=== PATIENT | female | born 1930 | race Caucasian/White ===

== ENCOUNTER → 2016-09-04 | Outpatient (CLI) | payer MEDICARE, BC ==
[~2016-09-04] MED LIST: ACYC400T; ALPR0.5T99 PO; AMIT50TA13 PO; ASPI325T PO; CALC0.25 PO; ERGO50000 PO; FOLI1TAB PO; FURO10S TUBE; KLOR10TA8 PO; LEVO.125 PO; METH2.5 PO; PRIL10CA PO; PRIM50TA PO; PROP10TA26 PO; SIMV5TAB32 PO; TYLETAB36 PO
[2016-09-04 15:58] LABS: AUTOMATED NEUTROPHIL # 1.1 TH/MM3 (1.8-7.7); BASOPHIL % 1.1 % (0.0-2.0); EOSINOPHIL % 0.6 % (0.0-4.0); HEMATOCRIT 37.7 % (35.0-46.0); LYMPH % 30.5 % (9.0-44.0); LYMPHOCYTE # 0.6 TH/MM3 (1.0-4.8); MEAN CELL VOLUME 102.4 FL (80.0-100.0); MEAN CORPUSCULAR HEMOGLOBIN 32.5 PG (27.0-34.0); MEAN CORPUSCULAR HGB CONC 31.8 % (32.0-36.0); MONO % 8.4 % (0.0-8.0); NEUT % 59.4 % (16.0-70.0); PLATELET COUNT 147 TH/MM3 (150-450); RED BLOOD COUNT 3.69 MIL/MM3 (4.00-5.30); RED CELL DISTRIBUTION WIDTH 15.9 % (11.6-17.2); WHITE BLOOD COUNT 1.9 TH/MM3 (4.0-11.0)
[2016-09-04 16:01] LABS: HEMO FLAGS AUTO DIFF
[2016-09-04 16:19] LABS: ALKALINE PHOSPHATASE 257 U/L (45-117); ALT (GPT) 1782 U/L (10-53); ANION GAP 7 MEQ/L (5-15); AST (GOT) 3553 U/L (15-37); BICARBONATE 32.8 MEQ/L (21.0-32.0); BLOOD UREA NITROGEN 20 MG/DL (7-18); CHLORIDE 101 MEQ/L (98-107); GLOMERULAR FILTRATION RATE 40 ML/MIN (>89); POTASSIUM 4.4 MEQ/L (3.5-5.1); SODIUM (NA) 141 MEQ/L (136-145); TOTAL BILIRUBIN ADULT 0.8 MG/DL (0.2-1.0)
[2016-09-04 16:40] LABS: BANDS 5 % (0-6); BASOPHILS 2 % (0-2); METAMYELOCYTES 1 % (0-1); NEUTROPHIL # MANUAL DIFF 1.2 TH/MM3 (1.8-7.7); POLYS (SEG NEUTROPHILS) 55 % (16-70); SCAN/DIFF FINAL DIFF MANUAL; WBC DIFF SAMPLE 100
[2016-09-04 16:42] LABS: PLATELET ESTIMATE SMEAR LOW (NORMAL); PLATELET MORPHOLOGY NORMAL (NORMAL)
[2016-09-04 16:49] LABS: BACTERIA, URINE MOD /hpf; BLOOD, URINE TRACE (NEG); GLUCOSE,URINE NEG (NEG); HYALINE CAST, URINE 5 /lpf (RARE); KETONE, URINE NEG (NEG); MUCUS URINE FEW /lpf (OCC); PH, URINE 6.5 (5.0-8.5); URINE COLOR YELLOW (YELLW/STRAW)
[2016-09-04 16:50] LABS: NITRITE,URINE POS (NEG)
== END ==
LOC: PLAB 13:37
PROVIDERS: ATTEND Internal Medicine Nephrology
DX: I12.9 Hypertensive chronic kidney disease with stage 1 through stage 4 chronic kidney disease, or unspecified chronic kidney disease (principal); N18.3 Chronic kidney disease, stage 3 (moderate); N25.81 Secondary hyperparathyroidism of renal origin; M06.09 Rheumatoid arthritis without rheumatoid factor, multiple sites; M81.0 Age-related osteoporosis without current pathological fracture; Z79.899 Other long term (current) drug therapy
CPT/HCPCS: 36415; 80053; 81001; 82306; 82570; 83970; 84100; 84156; 85007; 85027

== ENCOUNTER → 2016-09-17 | Outpatient (CLI) | payer MEDICARE, BC ==
[2016-09-17 16:19] LABS: ALT (GPT) 51 U/L (10-53); ANION GAP 8 MEQ/L (5-15); AST (GOT) 28 U/L (15-37); BICARBONATE 26.8 MEQ/L (21.0-32.0); BLOOD UREA NITROGEN 21 MG/DL (7-18); CHLORIDE 104 MEQ/L (98-107); GLOMERULAR FILTRATION RATE 56 ML/MIN (>89); POTASSIUM 4.2 MEQ/L (3.5-5.1); SODIUM (NA) 139 MEQ/L (136-145)
[2016-09-17 16:21] LABS: ALKALINE PHOSPHATASE 137 U/L (45-117); TOTAL BILIRUBIN ADULT 0.3 MG/DL (0.2-1.0)
[2016-09-17 16:22] LABS: HEMATOCRIT 37.3 % (35.0-46.0); MEAN CELL VOLUME 101.6 FL (80.0-100.0); MEAN CORPUSCULAR HEMOGLOBIN 32.4 PG (27.0-34.0); MEAN CORPUSCULAR HGB CONC 31.9 % (32.0-36.0); PLATELET COUNT 203 TH/MM3 (150-450); RED BLOOD COUNT 3.67 MIL/MM3 (4.00-5.30); RED CELL DISTRIBUTION WIDTH 16.1 % (11.6-17.2); REVIEW FLAG FINAL; WHITE BLOOD COUNT 6.3 TH/MM3 (4.0-11.0)
[2016-09-17 16:30] LABS: TOTAL PROTEIN SPE 7.5 GM/DL (6.0-7.6)
[2016-09-17 17:56] LABS: BACTERIA, URINE MOD /hpf; BLOOD, URINE SMALL (NEG); GLUCOSE,URINE NEG (NEG); KETONE, URINE NEG (NEG); MUCUS URINE FEW /lpf (OCC); NITRITE,URINE POS (NEG); SQUAMOUS EPITHELIAL CELL URINE <1 /hpf (0-5); URINE COLOR LIGHT-YELLOW (YELLW/STRAW)
[2016-09-18 11:30] LABS: ALBUMIN SPE 4.25 GM/DL (3.50-5.00); ALPHA 1 GLOBULIN 0.21 GM/DL (0.11-0.29); ALPHA 2 GLOBULIN 0.86 GM/DL (0.22-1.00); BETA GLOBULINS (SPE) 0.77 GM/DL (0.53-1.03)
[2016-09-19 15:18] LABS: ANA SCREEN POS (NEG)
[2016-09-20 14:13] LABS: KAPPA LAMBDA RATIO 1.91 (1.57-3.93)
[2016-09-20 23:53] LABS: KAPPA/LAMBDA FREE 1.45 (0.26-1.65)
[2016-09-21 14:40] LABS: ANA TITER QUANT 1:40 (NEG)
== END ==
LOC: PLAB 12:20
PROVIDERS: ATTEND Internal Medicine Nephrology
DX: N18.3 Chronic kidney disease, stage 3 (moderate) (principal); M06.09 Rheumatoid arthritis without rheumatoid factor, multiple sites; M81.0 Age-related osteoporosis without current pathological fracture; Z79.899 Other long term (current) drug therapy
CPT/HCPCS: 36415; 80053; 81001; 82570; 82784; 83883; 84100; 84155; 84156; 84165; 85027; 86038; 86039; 86160; 86334; 86335

== ENCOUNTER → 2016-11-07 | Outpatient (CLI) | payer MEDICARE, BC ==
[2016-11-07 16:12] LABS: BLOOD, URINE NEG (NEG); COMMENT (UR) CULT NOT INDICATED; CULTURE IF INDICATED CULT NOT INDICATED; GLUCOSE,URINE NEG (NEG); HYALINE CAST, URINE 4 /lpf (RARE); KETONE, URINE NEG (NEG); MUCUS URINE FEW /lpf (OCC); NITRITE,URINE NEG (NEG); PH, URINE 5.5 (5.0-8.5); URINE COLOR LIGHT-YELLOW (YELLW/STRAW)
== END ==
LOC: PLAB 12:49
PROVIDERS: ATTEND Physician Assistant
DX: N39.0 Urinary tract infection, site not specified (principal); N18.3 Chronic kidney disease, stage 3 (moderate)
CPT/HCPCS: 81001

== ENCOUNTER → 2016-12-25 | Outpatient (CLI) | payer MEDICARE, BC ==
[2016-12-25 15:39] LABS: HEMATOCRIT 38.6 % (35.0-46.0); MEAN CELL VOLUME 97.9 FL (80.0-100.0); MEAN CORPUSCULAR HGB CONC 32.7 % (32.0-36.0); PLATELET COUNT 183 TH/MM3 (150-450); RED BLOOD COUNT 3.94 MIL/MM3 (4.00-5.30); RED CELL DISTRIBUTION WIDTH 15.1 % (11.6-17.2); REVIEW FLAG FINAL; WHITE BLOOD COUNT 7.5 TH/MM3 (4.0-11.0)
[2016-12-25 16:02] LABS: ALT (GPT) 37 U/L (10-53); ANION GAP 6 MEQ/L (5-15); AST (GOT) 41 U/L (15-37); BICARBONATE 31.9 MEQ/L (21.0-32.0); BLOOD UREA NITROGEN 24 MG/DL (7-18); CHLORIDE 102 MEQ/L (98-107); GLOMERULAR FILTRATION RATE 52 ML/MIN (>89); POTASSIUM 4.3 MEQ/L (3.5-5.1); SODIUM (NA) 140 MEQ/L (136-145)
[2016-12-25 16:04] LABS: ALKALINE PHOSPHATASE 104 U/L (45-117); TOTAL BILIRUBIN ADULT 0.2 MG/DL (0.2-1.0)
== END ==
LOC: PLAB 13:14
PROVIDERS: ATTEND Internal Medicine Rheumatology
DX: M06.09 Rheumatoid arthritis without rheumatoid factor, multiple sites (principal); Z79.899 Other long term (current) drug therapy
CPT/HCPCS: 36415; 80053; 85027

== ENCOUNTER 2017-04-03 00:03 | Emergency (ER) | payer MEDICARE, BC ==
[~2017-04-03] VITALS: Ht 165.1 cm; Wt 65.3 kg
[2017-04-03 00:08] VITALS: BP 192/90; PULSE 85; RESP 20; TEMP 97.8; O2SAT 98
[2017-04-03 00:34] VITALS: BP 115/53; PULSE 71; RESP 20; TEMP 97.8; O2SAT 95
[2017-04-03] MEDS ORDERED: ACETAMINOPHEN/CODEINE 300 MG/30 MG TAB PO ONE (01:15)
[2017-04-03 01:21] VITALS: BP 192/90; PULSE 85; RESP 20; TEMP 97.8; O2SAT 98
--- NOTE | 2017-04-03 01:41 | PD ---
HPI Chief Complaint: Fall Time Seen by Provider: 00:51 Travel History International Travel<30 days: No Contact w/Intl Traveler<30days: No Traveled to known affect area: No History of Present Illness HPI Patient is an 86-year-old female she lives alone. She said today she was getting up from her recliner and she fell backwards hitting her head against linoleum at the crown of her head she has a lump without laceration. She says she has a fractured calcaneus that will not heal on her right. She denies syncope she remembers the whole event she is convinced that she just fell because of the pain in her foot. She is under wound care because she has a squamous cell cancer on that that is a healing ulcer that is [place] needing treatment. In the ER she is awake alert. Her eyes are obviously 2 different sizes and that is because she had her eyes dilated for by the material stockkeeper yard today. It is not caused by injury to her brain from the fall. CAT scan is ordered. PFSH Past Medical History Arthritis: Yes (RHEUMATOID ARTHRITIS) Asthma: No Blood Disorders: No Anxiety: Yes Depression: Yes Heart Rhythm Problems: No Cancer: No Cardiovascular Problems: Yes ([place] 10/2005) High Cholesterol: Yes (PATIENT DENIES BUT TAKES MED FOR CHOLESTEROL) Chest Pain: No Congestive Heart Failure: No COPD: No Cerebrovascular Accident: No Diminished Hearing: No Endocrine: Yes (HYPOTHROID) Gastrointestinal Disorders: Yes GERD: Yes Genitourinary: Yes (BLADDER INFECTION) Headaches: No Hiatal Hernia: Yes Hypertension: Yes Immune Disorder: Yes (RA) Implanted Vascular Access Dvce: Yes Kidney Stones: No Musculoskeletal: Yes (MULTPLE ORTHOPEDIC SURGERIES) Psychiatric: Yes Immunizations Current: Yes (received the shingles vaccine) Migraines: Yes ( CHILD) Myocardial Infarction: Yes (2005) Renal Failure: No Seizures: No Sickle Cell Disease: No Sleep Apnea: No Thyroid Disease: Yes (HYPOTHYROID) Ulcer: Yes Tetanus Vaccination: > 5 Years Influenza Vaccination: No ?: Not Menopausal: Yes Past Surgical History Abdominal Surgery: Yes AICD: No Arteriovenous Shunt: No Cardiac Surgery: No Cholecystectomy: Yes Ear Surgery: No Endocrine Surgery: No Eye Surgery: Yes (BILATERAL CATARACT REMOVAL L EYE 2008 R EYE 1997) Genitourinary Surgery: Yes (GALLBLADDER REMOVED--OPEN 1975) Gynecologic Surgery: No Insulin Pump: No Joint Replacement: Yes (BILATERAL KNEE REPLACEMENTS. RIGH HIP REPLACEMENT) Neurologic Surgery: Yes (BACK SURGERY 1973) Oral Surgery: No Pacemaker: No Thoracic Surgery: No Other Surgery: Yes Social History Alcohol Use: No Tobacco Use: No Substance Use: No Allergies-Medications (Allergen,Severity, Reaction): Coded Allergies: diclofenac (Verified Allergy, Severe, HIVES, 04/03/17) penicillin G (Verified Allergy, Severe, Swelling, 04/03/17) piroxicam (Verified Allergy, Severe, Hives, 04/03/17) Uncoded Allergies: CLINORIL (Allergy, Severe, RASH, 05/18/08) NSAIDS (Allergy, Mild, 01/19/12) Reported Meds & Prescriptions Reported Meds & Active Scripts Active Tylenol-Codeine #4 (Acetaminophen-Codeine) 300-60 mg Tab 1 Tab PO Q4H PRN Levaquin (Levofloxacin) 750 Mg Tablet 750 Mg PO DAILY 5 Days Review of Systems Except as stated in HPI: all other systems reviewed are Neg HENT: Positive: Headaches Cardiovascular: No: Chest Pain or Discomfort, Palpitations Respiratory: No: Cough, Shortness of Breath Musculoskeletal: Positive: Myalgias (patient has constant left heel pain she says she has fractures there that she is been trying to heal) Physical Exam Narrative GENERAL: Patient has swelling to the crown of her head otherwise appears very healthy and normal alert oriented 3 SKIN: Warm and dry. HEAD: Patient has a small swelling to the crown parietal area on the left side of her scalp ....traumatic. No laceration EYES: Her left pupil is smaller 2 mm compared to her right pupil which is 5 mm she reports having had drops put in her eye by ophthalmology today. No scleral icterus. No injection or drainage. ENT: No nasal bleeding or discharge. Mucous membranes pink and moist. NECK: Trachea midline. No JVD. CARDIOVASCULAR: Regular rate and rhythm. RESPIRATORY: No accessory muscle use. Clear to auscultation. Breath sounds equal bilaterally. GASTROINTESTINAL: Abdomen soft, non-tender, nondistended. Hepatic and splenic margins not palpable. MUSCULOSKELETAL: Extremities left lower extremity is wrapped in this ulcer supporting stocking mild tenderness to the left heel No obvious deformities. NEUROLOGICAL: Awake and alert. No obvious cranial nerve deficits. Motor grossly within normal limits. Five out of 5 muscle strength in the arms and legs. Normal speech. PSYCHIATRIC: Appropriate mood and affect; insight and judgment normal. Data Data Last Documented VS Vital Signs Date Time Temp Pulse Resp B/P (MAP) Pulse Ox O2 Delivery O2 Flow Rate FiO2 04/03/17 03:11 04/03/17 02:48 18 04/03/17 02:40 97 93 102 04/03/17 01:24 Room Air 04/03/17 01:21 97[address] Brain W/O Iv Contrast(Rout) (04/03/17 ) Ct Foot W/O Contrast (04/03/17 ) Urinalysis - C+S If Indicated (04/03/17 01:13) Acetamin-Codeine 300-30 Mg (Tylenol-Code (04/03/17 01:15) Urine Culture (04/03/17 01:54) Levofloxacin (Levaquin) (04/03/17 02:15) Orthostatic Vital Signs (04/03/17 02:32) Ed Discharge Order (04/03/17 03:03) Labs Laboratory Tests Test 04/03/17 01:54 Urine Color YELLOW Urine Turbidity MOD Urine pH 6.0 Urine Specific Center Line 1.017 Urine Protein NEG mg/dL Urine Glucose (UA) NEG mg/dL Urine Ketones NEG mg/dL Urine Occult Blood SMALL Urine Nitrite POS Urine Bilirubin NEG Urine Leukocyte Esterase MOD Urine RBC 4-9 /hpf Urine WBC 50-99 /hpf Urine WBC Clumps OCC Urine Squamous Epithelial Cells 0-5 /hpf Urine Bacteria MANY /hpf Microscopic Urinalysis Comment CULTURE INDICATED MDM Medical Decision Making Medical Screen Exam Complete: Yes Emergency Medical Condition: Yes Differential Diagnosis Closed head injury versus intracerebral bleed versus concussion versus syncope versus mechanical fall Narrative Course CT head is negative for internal injury of the heel shows well-corticated fragment off of the heel is interpreted as negative she has a urinary tract infection and treat her with Levaquin by mouth 750 for 5 days she has orthostatics better normal she does not drop her pressure or feel dizzy it is safe to discharge her home to follow up with her primary care doctor and take Levaquin 750 daily for 5 days Diagnosis Primary Impression: Closed head injury Additional Impression: Urinary tract infection Patient Instructions: General Instructions, Head Injury (ED), Urinary Tract Infection in Women (ED) Scripts Acetaminophen-Codeine (Tylenol-Codeine #4) 300-60 mg Tab 1 TAB PO Q4H Y for PAIN, #15 TAB 0 Refills Prov: Tej Rocha MD 04/03/17 Levofloxacin (Levaquin) 750 Mg Tablet 750 MG PO DAILY for Infection for 5 Days, #5 TAB 0 Refills Prov: Tej Rocha MD 04/03/17 Disposition: 01 DISCHARGE HOME Condition: Good Tej Rocha MD Apr 03, 2017 01:41
[2017-04-03 02:00] LABS: BLOOD, URINE SMALL (NEG); GLUCOSE,URINE NEG (NEG); KETONE, URINE NEG (NEG); NITRITE,URINE POS (NEG)
--- NOTE | 2017-04-03 02:04 | RADRPT ---
EXAM DATE/TIME: 04/03/2017 01:31 [facility] COMPARISON: CT BRAIN W/O CONTRAST, June 23, 2013, 14:17. INDICATIONS : Trauma. Fall. RADIATION DOSE: 57.60 CTDIvol (mGy) MEDICAL HISTORY : Cardiovascular disease. SURGICAL HISTORY : None. ENCOUNTER: Initial ACUITY: 1 day PAIN SCALE: 8/10 LOCATION: Bilateral occipital TECHNIQUE: Multiple contiguous axial images were obtained of the head. Using automated exposure control and adj ustment of the mA and/or kV according to patient size, radiation dose was kept as low as reasonably a chievable to obtain optimal diagnostic quality images. DICOM format image data is available electro nically for review and comparison. FINDINGS: CEREBRUM: The ventricles are normal for age. No evidence of midline shift, mass lesion, hemorrhage or acute in farction. No extra-axial fluid collections are seen. POSTERIOR FOSSA: The cerebellum and brainstem are intact. The 4th ventricle is midline. The cerebellopontine angle i s unremarkable. EXTRACRANIAL: The visualized portion of the orbits is intact. SKULL: The calvaria is intact. No evidence of skull fracture. CONCLUSION: Normal examination. Scooter Stapleton MD on April 03, 2017 at 2:02 Board Certified Radiologist. This report was verified electronically.
[2017-04-03 02:08] LABS: URINE COLOR YELLOW (YELLW/STRAW)
--- NOTE | 2017-04-03 02:08 | RADRPT ---
EXAM DATE/TIME: 04/03/2017 01:36 [facility] COMPARISON: No previous studies available for comparison. INDICATIONS : Left foot pain. RADIATION DOSE: 5.98 CTDIvol (mGy) MEDICAL HISTORY : Cardiovascular disease. SURGICAL HISTORY : None. ENCOUNTER: Initial ACUITY: 1 day PAIN SCALE: 8/10 LOCATION: Left foot TECHNIQUE: Volumetric scanning of the foot was performed. Using automated exposure control and adjustment of th e mA and/or kV according to patient size, radiation dose was kept as low as reasonably achievable to obtain optimal diagnostic quality images. DICOM format image data is available electronically for re view and comparison. FINDINGS: BONES: No evidence of fracture. Alignment is within normal limits. JOINTS: No evidence of joint narrowing or effusion. SOFT TISSUES: Significant soft tissue swelling across the dorsum of the foot . The tendons and neurovascular stru ctures are grossly unremarkable. There is marked fatty atrophy of the plantar musculature. No eviden ce of mass, organized fluid collection, or foreign body. CONCLUSION: Diffuse soft tissue edema across the dorsum of the foot. Diffuse fatty atrophy throughout the plantar musculature. No acute fracture is seen. Scooter Stapleton MD on April 03, 2017 at 2:04 Board Certified Radiologist. This report was verified electronically.
[2017-04-03 02:09] LABS: BACTERIA, URINE MANY /hpf; COMMENT (UR) CULTURE INDICATED; CULTURE IF INDICATED CULTURE INDICATED; SQUAMOUS EPITHELIAL CELL URINE 0-5 /hpf (0-5)
[2017-04-03] MEDS ORDERED: LEVOFLOXACIN 750 MG TAB PO ONE (02:15)
[2017-04-03 02:40] VITALS: BP_SYST 176; BP_SYST 178; BP_SYST 189; BP_DIAS 68; BP_DIAS 80; BP_DIAS 85; RESP 18
[2017-04-03 02:48] VITALS: RESP 18
[2017-04-03] MEDS ORDERED: LEVA750T9 PO (03:01)
[2017-04-03] MEDS ORDERED: TYLETAB36 PO (03:01)
== END 2017-04-03 03:20 | disposition home or self-care (01) ==
LOC: PHED 00:03
DX: S09.90XA Unspecified injury of head, initial encounter (principal); N39.0 Urinary tract infection, site not specified; B96.20 Unspecified Escherichia coli [E. coli] as the cause of diseases classified elsewhere; B96.4 Proteus (mirabilis) (morganii) as the cause of diseases classified elsewhere; M79.672 Pain in left foot; W19.XXXA Unspecified fall, initial encounter
CPT/HCPCS: 70450; 73700; 81001; 87077; 87086; 87186

== ENCOUNTER 2017-04-20 06:43 | Inpatient (IN) | payer MEDICARE, BC ==
[2017-04-20] VITALS (15 sets, daily range): BP systolic 156–220; BP diastolic 79–105; PULSE 91–110; RESP 16–22; TEMP 98–99.4; O2SAT 95–100
[~2017-04-20] VITALS: Ht 167.6 cm; Wt 70.0 kg
[~2017-04-20 06:43] MED LIST changes: -ACYC400T; -ALPR0.5T99 PO; -AMIT50TA13 PO; -ASPI325T PO; -CALC0.25 PO; -ERGO50000 PO; -FOLI1TAB PO; -FURO10S TUBE; -KLOR10TA8 PO; +LEVA750T9 PO; -LEVO.125 PO; -METH2.5 PO; -PRIL10CA PO; -PRIM50TA PO; -PROP10TA26 PO; -SIMV5TAB32 PO
[2017-04-20] MEDS ORDERED: NITR1SUB3 SL (07:00)
[2017-04-20] MEDS ORDERED: OXYC1CAP PO (07:00)
[2017-04-20] MEDS ORDERED: ASPI1TAB57 PO (07:00)
[2017-04-20] MEDS ORDERED: NITR0.2D T-DERMAL (07:00)
[2017-04-20 07:08] LABS: AUTOMATED NEUTROPHIL # 6.3 TH/MM3 (1.8-7.7); BASOPHIL % 0.5 % (0.0-2.0); EOSINOPHIL # 0.1 TH/MM3 (0-0.4); HEMATOCRIT 38.7 % (35.0-46.0); HEMO FLAGS DIFF FINAL; LYMPH % 18.9 % (9.0-44.0); LYMPHOCYTE # 1.6 TH/MM3 (1.0-4.8); MEAN CELL VOLUME 102.1 FL (80.0-100.0); MEAN CORPUSCULAR HEMOGLOBIN 34.4 PG (27.0-34.0); MEAN CORPUSCULAR HGB CONC 33.7 % (32.0-36.0); MONO % 5.9 % (0.0-8.0); NEUT % 73.7 % (16.0-70.0); PLATELET COUNT 190 TH/MM3 (150-450); RED BLOOD COUNT 3.79 MIL/MM3 (4.00-5.30); RED CELL DISTRIBUTION WIDTH 15.4 % (11.6-17.2); WHITE BLOOD COUNT 8.6 TH/MM3 (4.0-11.0)
[2017-04-20 07:27] LABS: ALT (GPT) 20 U/L (10-53); ANION GAP 7 MEQ/L (5-15); AST (GOT) 27 U/L (15-37); BICARBONATE 28.1 MEQ/L (21.0-32.0); BLOOD UREA NITROGEN 13 MG/DL (7-18); CHLORIDE 105 MEQ/L (98-107); GLOMERULAR FILTRATION RATE 60 ML/MIN (>89); POTASSIUM 3.6 MEQ/L (3.5-5.1); SODIUM (NA) 140 MEQ/L (136-145)
[2017-04-20 07:31] LABS: ALKALINE PHOSPHATASE 93 U/L (45-117); TOTAL BILIRUBIN ADULT 0.4 MG/DL (0.2-1.0)
--- NOTE | 2017-04-20 07:33 | RADRPT ---
EXAM DATE/TIME: 04/20/2017 07:07 [facility] COMPARISON: No previous studies available for comparison. INDICATIONS : Chest pain this morning. MEDICAL HISTORY : Cardiovascular disease. SURGICAL HISTORY : None. ENCOUNTER: Initial ACUITY: 1 day PAIN SCORE: 5/10 LOCATION: Left middle upper chest. FINDINGS: A single view of the chest demonstrates minimal left basilar scarring. Right lung clear. Heart normal in size.. The cardiomediastinal contours are unremarkable. Osseous structures are intact. CONCLUSION: 1. Left basilar scarring. Arturo Ruelas MD on April 20, 2017 at 7:28 Board Certified Radiologist. This report was verified electronically.
--- NOTE | 2017-04-20 07:41 | PD ---
HPI Chief Complaint: Chest Pain Time Seen by Provider: 07:37 Travel History International Travel<30 days: No Contact w/Intl Traveler<30days: No Traveled to known affect area: No History of Present Illness HPI 86-year-old female patient with history of CAD, [place], hypertension, multiple medical issues, presenting to the ER today with several days' history of watery brown diarrhea, and today started having 5 out of 10 chest discomfort. She denies any shortness of breath but states that she is fairly nauseous as well. She denies any abdominal pain, fevers, black stools, blood in the stools, or other symptoms. She does not know any exacerbating or alleviating factors. Patient denies any recent antibiotic use, does not know any sick contacts or bad food exposure. Modifying Factors: None Associated Signs & Symptoms: Chest discomfort, diarrhea Risk Factors: Cardiac history PFSH Past Medical History Arthritis: Yes (RHEUMATOID ARTHRITIS) Asthma: No Blood Disorders: No Anxiety: Yes Depression: Yes Heart Rhythm Problems: No Cancer: No Cardiovascular Problems: Yes ([place] 10/2005) High Cholesterol: Yes (PATIENT DENIES BUT TAKES MED FOR CHOLESTEROL) Chest Pain: No Congestive Heart Failure: No COPD: No Cerebrovascular Accident: No Diminished Hearing: No Endocrine: Yes (HYPOTHROID) Gastrointestinal Disorders: Yes GERD: Yes Genitourinary: Yes (BLADDER INFECTION) Headaches: No Hiatal Hernia: Yes Hypertension: Yes Immune Disorder: Yes (RA) Implanted Vascular Access Dvce: Yes Kidney Stones: No Musculoskeletal: Yes (MULTPLE ORTHOPEDIC SURGERIES) Psychiatric: Yes Immunizations Current: Yes (received the shingles vaccine) Migraines: Yes ( CHILD) Myocardial Infarction: Yes (2005) Renal Failure: No Seizures: No Sickle Cell Disease: No Sleep Apnea: No Thyroid Disease: Yes (HYPOTHYROID) Ulcer: Yes ?: Not Menopausal: Yes Past Surgical History Abdominal Surgery: Yes AICD: No Arteriovenous Shunt: No Cardiac Surgery: No Cholecystectomy: Yes Ear Surgery: No Endocrine Surgery: No Eye Surgery: Yes (BILATERAL CATARACT REMOVAL L EYE 2008 R EYE 1997) Genitourinary Surgery: Yes (GALLBLADDER REMOVED--OPEN 1975) Gynecologic Surgery: No Insulin Pump: No Joint Replacement: Yes (BILATERAL KNEE REPLACEMENTS. RIGH HIP REPLACEMENT) Neurologic Surgery: Yes (BACK SURGERY 1973) Oral Surgery: No Pacemaker: No Thoracic Surgery: No Other Surgery: Yes Social History Alcohol Use: No Tobacco Use: No Substance Use: No Allergies-Medications (Allergen,Severity, Reaction): Coded Allergies: diclofenac (Verified Allergy, Severe, HIVES, 04/20/17) penicillin G (Verified Allergy, Severe, Swelling, 04/20/17) piroxicam (Verified Allergy, Severe, Hives, 04/20/17) Uncoded Allergies: CLINORIL (Allergy, Severe, RASH, 05/18/08) NSAIDS (Allergy, Mild, 01/19/12) Reported Meds & Prescriptions Reported Meds & Active Scripts Active Reported Oxycodone (Oxycodone HCl) 5 Mg Cap 5 Mg PO Q6H PRN Nitroglycerin SL (Nitroglycerin) 0.4 Mg Subl 0.4 Mg SL DIRECTED PRN ONE TABLET UNDER THE TONGUE NEEDED FOR CHEST PAIN, MAY REPEAT EVERY FIVE MINUTES FOR A TOTAL OF 3 DOSES OR CALL 911 IF NO RELIEF Nitro-Dur Patch 24 HR (Nitroglycerin) 0.2 Mg/Hr Patch 0.2 Mg T-DERMAL DAILY Aspirin 81 (Aspirin) 81 Mg Tabdr 162 Mg PO DAILY Review of Systems Except as stated in HPI: all other systems reviewed are Neg Physical Exam Narrative GENERAL: Well-developed elderly white female patient currently in mild distress. Awake and oriented 3. SKIN: Focused skin assessment warm/dry. HEAD: Atraumatic. Normocephalic. EYES: Pupils equal and round. No scleral icterus. No injection or drainage. ENT: No nasal bleeding or discharge. Mucous membranes pink and moist. NECK: Trachea midline. No JVD. CARDIOVASCULAR: Regular rate and rhythm. No murmur appreciated. RESPIRATORY: No accessory muscle use. Clear to auscultation. Breath sounds equal bilaterally. GASTROINTESTINAL: Abdomen soft, non-tender, nondistended. Hepatic and splenic margins not palpable. MUSCULOSKELETAL: No obvious deformities. No clubbing. No cyanosis. No edema. NEUROLOGICAL: Awake and alert. No obvious cranial nerve deficits. Motor grossly within normal limits. Normal speech. PSYCHIATRIC: Appropriate mood and affect; insight and judgment normal. Data Data Last Documented VS Vital Signs Date Time Temp Pulse Resp B/P (MAP) Pulse Ox O2 Delivery O2 Flow Rate FiO2 04/20/17 06:49 106 04/20/17 06:44 98.3 20 96 Orders Orders Complete Blood Count With Diff (04/20/17 06:53) Comprehensive Metabolic Panel (04/20/17 06:53) Chest, Single Ap (04/20/17 ) Troponin I (04/20/17 06:53) Electrocardiogram (04/20/17 ) Ondansetron Inj (Zofran Inj) (04/20/17 07:45) Morphine Inj (Morphine Inj) (04/20/17 07:45) Labs Laboratory Tests Test 04/20/17 07:00 White Blood Count 8.6 TH/MM3 Red Blood Count 3.79 MIL/MM3 Hemoglobin 13.1 GM/DL Hematocrit 38.7 % Mean Corpuscular Volume 102.1 FL Mean Corpuscular Hemoglobin 34.4 PG Mean Corpuscular Hemoglobin Concent 33.7 % Red Cell Distribution Width 15.4 % Platelet Count 190 TH/MM3 Mean Platelet Volume 8.0 FL Neutrophils (%) (Auto) 73.7 % Lymphocytes (%) (Auto) 18.9 % Monocytes (%) (Auto) 5.9 % Eosinophils (%) (Auto) 1.0 % Basophils (%) (Auto) 0.5 % Neutrophils # (Auto) 6.3 TH/MM3 Lymphocytes # (Auto) 1.6 TH/MM3 Monocytes # (Auto) 0.5 TH/MM3 Eosinophils # (Auto) 0.1 TH/MM3 Basophils # (Auto) 0.0 TH/MM3 CBC Comment DIFF FINAL Differential Comment Blood Urea Nitrogen 13 MG/DL Creatinine 0.89 MG/DL Random Glucose 110 MG/DL Total Protein 7.4 GM/DL Albumin 3.4 GM/DL Calcium Level 8.7 MG/DL Alkaline Phosphatase 93 U/L Aspartate Amino Transf (AST/SGOT) 27 U/L Alanine Aminotransferase (ALT/SGPT) 20 U/L Total Bilirubin 0.4 MG/DL Sodium Level 140 MEQ/L Potassium Level 3.6 MEQ/L Chloride Level 105 MEQ/L Carbon Dioxide Level 28.1 MEQ/L Anion Gap 7 MEQ/L Estimat Glomerular Filtration Rate 60 ML/MIN Troponin I 0.03 NG/ML MDM Medical Decision Making Medical Screen Exam Complete: Yes Emergency Medical Condition: Yes Medical Record Reviewed: Yes Interpretation(s) EKG shows NSR, no ST elevation or depression, and no arrhythmias. No significant T-wave inversions. Last 24 hours Impressions Chest X-Ray 04/20/17 0000 Signed Impressions: Service Date/Time: Thursday, April 20, 2017 07:07 - CONCLUSION: 1. Left basilar scarring. Arturo Ruelas MD Laboratory Tests Test 04/20/17 07:00 Red Blood Count 3.79 MIL/MM3 (4.00-5.30) Mean Corpuscular Volume 102.1 FL (80.0-100.0) Mean Corpuscular Hemoglobin 34.4 PG (27.0-34.0) Neutrophils (%) (Auto) 73.7 % (16.0-70.0) Random Glucose 110 MG/DL (74-106) Estimat Glomerular Filtration Rate 60 ML/MIN (>89) Differential Diagnosis Chest discomfort, diarrhea: Gastroenteritis versus ACS versus dysrhythmias versus dehydration versus metabolic issues Narrative Course EKG did not show any signs of acute changes. Cardiac enzymes negative. Abdomen is fairly benign and I am not suspecting acute intra-abdominal process. Lab work did not show any significant dehydration or metabolic issues or significant anemia. At this point, my plan would be to admit her for further evaluation and treatment. Patient is also asking for pain medication for chronic back pain and nausea. She was given morphine and Zofran. Case was then discussed with family practice resident service for admission to Dr. Zamora service. Diagnosis Primary Impression: Chest discomfort Additional Impression: Diarrhea Admitting Information Admitting Physician Requests: Admit Jaida Muñoz MD Apr 20, 2017 07:41
[2017-04-20] MEDS ORDERED: ONDANSETRON HCL 4 MG/2 ML VIAL IV PUSH ONE (07:45)
[2017-04-20] MEDS ORDERED: MORPHINE SULFATE 4 MG/ML INJ IV PUSH ONE (07:45)
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
[2017-04-20] MEDS ORDERED: FURO1TAB60 PO (09:54)
[2017-04-20] MEDS ORDERED: AMIT50TA3 PO (09:54)
[2017-04-20] MEDS ORDERED: PRIM50TA5 PO (09:54)
[2017-04-20] MEDS ORDERED: ACYC400T PO (09:54)
[2017-04-20] MEDS ORDERED: OMEP20TA93 PO (09:54)
[2017-04-20] MEDS ORDERED: CALC0.25 PO (09:54)
[2017-04-20] MEDS ORDERED: PROP80CA PO (09:54)
[2017-04-20] MEDS ORDERED: LEVO.1 PO (09:54)
[2017-04-20] MEDS ORDERED: METH2.5T PO (09:54)
[2017-04-20] MEDS ORDERED: KLOR10TA PO (09:54)
[2017-04-20] MEDS ORDERED: FOLI1TAB6 PO (09:54)
[2017-04-20] MEDS ORDERED: VITA1000 PO (09:54)
[2017-04-20] MEDS ORDERED: SIMV40TA PO (09:54)
[2017-04-20] MEDS ORDERED: NALOXONE HCL 0.4 MG/ML AMP IV PUSH PRN (10:45)
[2017-04-20] MEDS ORDERED: SODIUM CHLORIDE 0.9% FLUSH 10 ML FLUSH IV FLUSH PRN (10:45)
[2017-04-20] MEDS ORDERED: ACETAMINOPHEN 325 MG TAB PO PRN (10:45)
[2017-04-20] MEDS ORDERED: FOLIC ACID 1 MG TAB PO SCH (11:15)
[2017-04-20] MEDS: PROPRANOLOL HCL LA 80 MG CAP PO SCH (11:15)
[2017-04-20] MEDS: PANTOPRAZOLE SOD 40 MG DELAYED RELEASE TAB PO SCH (11:15)
[2017-04-20] MEDS ORDERED: ASPIRIN 81 MG CHEW TAB CHEW SCH (11:15)
[2017-04-20] MEDS: LABETALOL HCL 100 MG/20 ML VIAL IV PUSH PRN ×2 (11:30→17:56)
[2017-04-20] MEDS: MORPHINE SULFATE 4 MG/ML INJ IV PUSH PRN ×5 (11:31→22:22)
[2017-04-20] MEDS: PRIMIDONE 50 MG TAB PO SCH ×3 (13:00→21:00)
[2017-04-20] MEDS: ONDANSETRON HCL 4 MG/2 ML VIAL IVP PRN ×2 (14:30→20:25)
--- NOTE | 2017-04-20 14:43 | HHI.FPPN ---
Subjective Remarks Patient seen, examined and discussed with the medicine team. This is an 86-year-old female who lives alone. This morning, she was having chest pressure and pain to the point where she took a nitroglycerin twice at 5 minute interval. She then called [facility], via her life alert , and was transported to [place]. En route, she was given 2 nitroglycerin sprays sublingually. As I see her today, her chest pain is much improved but she continues to be quite nauseated. This, as well as her low back pain, her main complaints. Was seen in the emergency department on April 05 and treated for a week for a closed head injury and a urinary tract infection. She had been having frequent loose stools at home until 8 PM yesterday when these seem to resolve. She does have history of kyphoplasty in the thoracic spine. Dr. Gonzalez Jefferson is her credit verifier. Please see history and physical examination for this admission for additional historical details. Objective Vitals Vital Signs Date Time Temp Pulse Resp B/P (MAP) Pulse Ox O2 Delivery O2 Flow Rate FiO2 04/20/17 12:31 98.1 98 18 195/105 (135) 04/20/17 11:41 188/93 (124) 04/20/17 11:34 99 190/84 (119) 04/20/17 11:33 04/20/17 11:31 108 17 220/101 (140) 100 Nasal Cannula 2.00 04/20/17 10:16 104 208/93 (131) 04/20/17 09:41 18 04/20/17 09:39 106 18 198/79 (118) 100 Nasal Cannula 2.00 04/20/17 08:33 98 16 207/91 (129) 97 Room Air 04/20/17 07:00 213/97 (135) 04/20/17 06:49 106 04/20/17 06:44 98.3 106 20 96 Result Diagram: 04/20/17 0700 04/20/17 07 Other Results Laboratory Tests Test 04/20/17 07:00 White Blood Count 8.6 TH/MM3 Red Blood Count 3.79 MIL/MM3 Hemoglobin 13.1 GM/DL Hematocrit 38.7 % Mean Corpuscular Volume 102.1 FL Mean Corpuscular Hemoglobin 34.4 PG Mean Corpuscular Hemoglobin Concent 33.7 % Red Cell Distribution Width 15.4 % Platelet Count 190 TH/MM3 Mean Platelet Volume 8.0 FL Neutrophils (%) (Auto) 73.7 % Lymphocytes (%) (Auto) 18.9 % Monocytes (%) (Auto) 5.9 % Eosinophils (%) (Auto) 1.0 % Basophils (%) (Auto) 0.5 % Neutrophils # (Auto) 6.3 TH/MM3 Lymphocytes # (Auto) 1.6 TH/MM3 Monocytes # (Auto) 0.5 TH/MM3 Eosinophils # (Auto) 0.1 TH/MM3 Basophils # (Auto) 0.0 TH/MM3 CBC Comment DIFF FINAL Differential Comment Blood Urea Nitrogen 13 MG/DL Creatinine 0.89 MG/DL Random Glucose 110 MG/DL Total Protein 7.4 GM/DL Albumin 3.4 GM/DL Calcium Level 8.7 MG/DL Alkaline Phosphatase 93 U/L Aspartate Amino Transf (AST/SGOT) 27 U/L Alanine Aminotransferase (ALT/SGPT) 20 U/L Total Bilirubin 0.4 MG/DL Sodium Level 140 MEQ/L Potassium Level 3.6 MEQ/L Chloride Level 105 MEQ/L Carbon Dioxide Level 28.1 MEQ/L Anion Gap 7 MEQ/L Estimat Glomerular Filtration Rate 60 ML/MIN Troponin I 0.03 NG/ML Imaging Last Impressions Chest X-Ray 04/20/17 0000 Signed Impressions: Service Date/Time: Thursday, April 20, 2017 07:07 - CONCLUSION: 1. Left basilar scarring. Arturo Ruelas MD EKG shows normal sinus rhythm, nonacute. Objective Remarks O. CONSTITUTIONAL/GEN: normally nourished, alert, sitting in bed complaining of nausea and low back pain which is chronic.. EYES: conjunctiva normal, PERRLA, EOMI. ENT: Mouth and pharynx normal. Lips are dry NECK: Supple LUNGS: clear A-P, respiratory effort is normal. CARDIOVASCULAR: RR without murmur or gallop. No significant edema. GI/ABD: soft without masses, without organomegaly. Protuberant NEURO: No focal deficits. SKIN: color pale HEME/LYMPH: Scattered ecchymoses on her upper extremities MUSC: Otherwise, extremities are normal in appearance. PSYCH/MENTAL STATUS: Alert and oriented x 3. A/P Assessment and Plan Elderly female with chest pressure and pain and nausea, admitted to rule out NSTEMI. See orders. Attending Attestation Patient seen and examined. Case reviewed and discussed with the resident team. Agree with plan of care as discussed with me and documented in the resident note. Nedra Zamora MD Apr 20, 2017 14:43
[2017-04-20] MEDS ORDERED: AL HYDR/MG TRIS/ALGIN AC/SOD BIC REG STRENGTH CHEW TAB CHEW PRN (14:45)
[2017-04-20] MEDS: ENOXAPARIN SODIUM 40 MG/0.4 ML SYRINGE SQ SCH ×2 (17:00→17:08)
[2017-04-20] MEDS: SODIUM CHLOR 0.9% 1000 ML INJ 1,000 ML IV SCH ×2 (17:44→20:56)
[2017-04-20] MEDS: SODIUM CHLORIDE 0.9% FLUSH 10 ML FLUSH IV FLUSH SCH ×2 (17:47→21:00)
[2017-04-20] MEDS: NITROGLYCERIN 0.4 MG SL 25 TABS/BTL SL PRN ×4 (17:55→22:23)
[2017-04-20] MEDS: PRAVASTATIN SOD 80 MG TAB PO SCH (21:00)
[2017-04-20] MEDS ORDERED: AMITRIPTYLINE HCL 50 MG TAB PO SCH (21:00)
[2017-04-20] MEDS ORDERED: HEPARIN-D5W 25,000 U/250 ML 250 ML IV PRN (22:45)
--- NOTE | 2017-04-20 23:00 | HHI.FPPN ---
Addendum to progress note ADDENDUM Reason for addendum: Additonal documentation Additional information Patient seen and examined after per report from RN having worsening left-sided chest pressure. Patient states she is having 5-6/10 chest pressure. Denies radiation of pain. No diaphoresis. Denies SOB. Patient still with elevated blood pressures 150s-160s/80s and tachycardic in 100s. Patient has been given morphine 2mg IV at 14:35 per RN about 4 hours after and states this did not help with her pain. She was also given 0.4mg sl nitroglycerin which she states also did not help her pain. Patient did have one episode of vomiting at time of examination. Emesis color is brown, however she had drank a chocolate ensure shake earlier. GENERAL: Appearing relatively more comfortable than prior examination on admission, until having nausea and emesis NECK: Supple. No JVD. CARDIOVASCULAR: Tachycardic rate, regular rhythm, no m/r/g RESPIRATORY: Clear to auscultation bilaterally, no w/r/r MUSCULOSKELETAL: Extremities without edema. NEUROLOGICAL: Awake and alert. Cranial nerves grossly intact. Motor grossly nml. Normal speech. A/P: 86 year old female with h/o MS in 2006, CAD, RA, chronic back pain, GERD admitted with chest pain and for ACS rule out now developing worsening left- sided chest pain. Concern for NSTEMI, vs STEMI however no ST elevations on EKGs thus far. Patient does have chronic back pain which may be confounding the picture as she has not responded to morphine. Pain possibly may not be cardiac- related as her pain does not seem to be responding to sl nitro - Troponins have trended 0.03 -> 0.13 -> 0.16 - EKG obtained now at 22:30 showing sinus tachycardia, slight ST depression lead V4, nonspecific ST changes - Discussed case with Dr. Otero, cardiology - Will place consult to cardiology, appreciate recommendations - Start patient on heparin drip - Will try dilaudid 0.5 mg IV q4h prn pain 6-10 - Trend additional set of troponins and EKG Levon Goldberg MD R2 Apr 20, 2017 23:00
[2017-04-20 23:32] LABS: HEMATOCRIT 42.9 % (35.0-46.0); MEAN CELL VOLUME 100.7 FL (80.0-100.0); MEAN CORPUSCULAR HEMOGLOBIN 33.8 PG (27.0-34.0); MEAN CORPUSCULAR HGB CONC 33.6 % (32.0-36.0); PLATELET COUNT 225 TH/MM3 (150-450); RED BLOOD COUNT 4.26 MIL/MM3 (4.00-5.30); RED CELL DISTRIBUTION WIDTH 15.9 % (11.6-17.2); REVIEW FLAG FINAL; WHITE BLOOD COUNT 12.2 TH/MM3 (4.0-11.0)
[2017-04-20 23:34] LABS: APTT (PATIENT) 29.4 SEC (24.3-30.1); INTERNATIONAL NORMALIZED RATIO 1.1 RATIO; PROTHROMBIN TIME - PATIENT 11.4 SEC (9.8-11.6)
[2017-04-21] VITALS (27 sets, daily range): BP systolic 136–186; BP diastolic 71–96; PULSE 84–114; RESP 16–20; TEMP 98.1–100.2; O2SAT 97–100
[2017-04-21] MEDS: LABETALOL HCL 100 MG/20 ML VIAL IV PUSH PRN ×3 (00:11→13:38)
[2017-04-21] MEDS ORDERED: ONDANSETRON HCL 4 MG/2 ML VIAL IVP PRN (00:30)
[2017-04-21] MEDS: HYDROmorphone HCL PF 1 MG/ML VIAL IV PUSH PRN ×6 (02:06→21:44)
[2017-04-21] MEDS: ONDANSETRON ODT 4 MG TAB PO PRN ×2 (03:27→07:41)
[2017-04-21 03:48] LABS: AUTOMATED NEUTROPHIL # 13.1 TH/MM3 (1.8-7.7); BASOPHIL % 0.2 % (0.0-2.0); HEMATOCRIT 43.2 % (35.0-46.0); HEMO FLAGS DIFF FINAL; LYMPHOCYTE # 1.4 TH/MM3 (1.0-4.8); MEAN CELL VOLUME 100.3 FL (80.0-100.0); MEAN CORPUSCULAR HEMOGLOBIN 33.5 PG (27.0-34.0); MEAN CORPUSCULAR HGB CONC 33.4 % (32.0-36.0); MONO % 5.8 % (0.0-8.0); PLATELET COUNT 215 TH/MM3 (150-450); RED CELL DISTRIBUTION WIDTH 15.3 % (11.6-17.2); WHITE BLOOD COUNT 15.4 TH/MM3 (4.0-11.0)
[2017-04-21] MEDS ORDERED: cloNIDine HCL 0.2 MG TAB PO PRN (05:45)
[2017-04-21] MEDS: SODIUM CHLOR 0.9% 1000 ML INJ 1,000 ML IV SCH ×2 (06:10→09:50)
[2017-04-21 09:04] LABS: APTT (PATIENT) 81.6 SEC (24.3-30.1)
[2017-04-21 09:19] LABS: ALT (GPT) 22 U/L (10-53); ANION GAP 9 MEQ/L (5-15); AST (GOT) 30 U/L (15-37); BICARBONATE 29.2 MEQ/L (21.0-32.0); BLOOD UREA NITROGEN 15 MG/DL (7-18); CHLORIDE 101 MEQ/L (98-107); GLOMERULAR FILTRATION RATE 53 ML/MIN (>89); POTASSIUM 3.2 MEQ/L (3.5-5.1); SODIUM (NA) 139 MEQ/L (136-145)
[2017-04-21 09:22] LABS: ALKALINE PHOSPHATASE 95 U/L (45-117); TOTAL BILIRUBIN ADULT 0.6 MG/DL (0.2-1.0)
[2017-04-21] MEDS: PANTOPRAZOLE SODIUM 40 MG VIAL IV PUSH SCH ×2 (09:43→21:37)
[2017-04-21] MEDS: SODIUM CHLORIDE 0.9% FLUSH 10 ML FLUSH IV FLUSH SCH ×2 (09:43→21:34)
--- NOTE | 2017-04-21 09:54 | PD.CONS ---
HPI History of Present Illness This is a 86 year old who presented to the ER yesterday with complaints of chest pain and diarrhea. Pt reports 6-7 episodes of diarrhea on Saturday, denies any black, tarry stool or obvious blood in stool Denies associated abdominal pain or cramping. Yesterday pt began vomiting coffee ground emesis and reports multiple episodes throughout the night. Also having epigastric pain/burning, constant. Of note, she is being worked up to rule out ACS. Pt does have occasional acid reflux at home, but reports it is not that frequent. Denies unintentional weight loss, changes in appetite, fever, chills, abdominal pain. She was recently on Ciprofloxacin for a UTI- Apr 07. Denies alcohol intake, nicotine use, NSAID use. Last EGD she thinks was in 2005 and a normal exam, she is unsure of when her last colonoscopy was but thinks she has had colon polyps in the past. Her GI doctor is Dr. Taylor at [facility]. (Mari Morales) PFSH Past Medical History Rheumatoid arthritis HTN HLD CAD Essential tremor Hypothyroidism GERD H/O CKD Osteoporosis Bulging disc x 3 lumbar Chronic back pain Squamous cell carcinoma LLL wound from radiation Past Surgical History B/L knee replacement Right hip replacement B/L rotator cuff surgery Cholecystectomy Lumbar laminectomy R and L cataract removal Kyphoplasty T8 and T 12 (Mari Morales) Coded Allergies: diclofenac (Verified Allergy, Severe, HIVES, 04/20/17) penicillin G (Verified Allergy, Severe, Swelling, 04/20/17) piroxicam (Verified Allergy, Severe, Hives, 04/20/17) Uncoded Allergies: CLINORIL (Allergy, Severe, RASH, 05/18/08) NSAIDS (Allergy, Mild, 01/19/12) Medications Current Medications Ondansetron HCl (Zofran Inj) 4 mg ONCE ONCE IV PUSH Last administered on 08:28; Start 04/20/17 at 07:45; Stop 04/20/17 at 07:46; Status DC Morphine Sulfate (Morphine Inj) 2 mg ONCE ONCE IV PUSH Last administered on 08:27; Start 04/20/17 at 07:45; Stop 04/20/17 at 07:46; Status DC Sodium Chloride 1,000 ml @ 100 mls/hr Q10H IV Last administered on 04/20/17 20:56; Start 04/20/17 at 12:00 Sodium Chloride (NS Flush) 2 ml UNSCH PRN IV FLUSH FLUSH AFTER USING IV ACCESS ; Start 04/20/17 at 10:45 Sodium Chloride (NS Flush) 2 ml BID IV FLUSH Last administered on 04/20/17 17: 47; Start 04/20/17 at 10:45 Acetaminophen (Tylenol) 650 mg Q4H PRN PO TEMP > 100.4; Start 04/20/17 at 10:45 ; Status Future Hold Ondansetron HCl (Zofran Inj) 4 mg Q6H PRN IVP NAUSEA OR VOMITING Last administered on 04/20/17 20:25; Start 04/20/17 at 11:30; Stop 04/20/17 at 22:30 ; Status DC Naloxone HCl (Narcan Inj) 0.4 mg UNSCH PRN IV PUSH SEE LABEL COMMENTS; Start 04/20/17 at 10:45 Enoxaparin Sodium (Lovenox Inj) 40 mg Q24H SQ Last administered on 04/20/17 17 :08; Start 04/20/17 at 12:00; Stop 04/20/17 at 22:39; Status DC Morphine Sulfate (Morphine Inj) 2 mg Q3H PRN IV PUSH PAIN SCALE 6 TO 10 Last administered on 04/20/17 22:22; Start 04/20/17 at 11:30; Stop 04/20/17 at 22:30 ; Status DC Labetalol HCl (Trandate Inj) 10 mg Q4H PRN IV PUSH SBP> OR = 160, DBP> OR = 00 Last administered on 04/21/17 04:04; Start 04/20/17 at 10:45 Nitroglycerin (Nitrostat Sl) 0.4 mg Q5M PRN SL CHEST PAIN Last administered on 04/20/17 22:23; Start 04/20/17 at 11:15 Pantoprazole Sodium (Protonix) 40 mg DAILY PO ; Start 04/20/17 at 11:15; Status Future Hold Aspirin (Aspirin Chew) 81 mg DAILY CHEW ; Start 04/20/17 at 11:15; Stop at 08:50; Status DC Amitriptyline HCl (Elavil) 50 mg HS PO ; Start 04/20/17 at 21:00; Status Future Hold Folic Acid (Folate) 1 mg DAILY PO ; Start 04/20/17 at 11:15; Status Future Hold Primidone (Mysoline) 50 mg QID PO ; Start 04/20/17 at 13:00; Status Future Hold Propranolol HCl (Inderal La) 80 mg DAILY PO ; Start 04/20/17 at 11:15; Status Future Hold Pravastatin Sodium (Pravachol) 80 mg HS PO ; Start 04/20/17 at 21:00; Status Future Hold Morphine Sulfate (Morphine Inj) 2 mg Q3H PRN IV PUSH BREAKTHROUGH PAIN Last administered on 04/20/17 20:24; Start 04/20/17 at 14:15; Stop 04/20/17 at 22:30 ; Status DC Alginic Acid/Al Hydrox/Sod Bicarb (Gaviscon Reg Strength Chew) 2 tab QID PRN CHEW nausea/gas Last administered on 04/20/17 22:05; Start 04/20/17 at 14:45 Ondansetron HCl (Zofran Inj) 4 mg Q4HR PRN IVP NAUSEA OR VOMITING Last administered on 04/20/17 23:36; Start 04/21/17 at 00:30; Stop 04/21/17 at 03:14 ; Status DC Hydromorphone HCl (Dilaudid Pf Inj) 0.5 mg Q4H PRN IV PUSH PAIN SCALE 6 TO 10 Last administered on 04/21/17 05:35; Start 04/21/17 at 02:30 Heparin Sodium/ Dextrose 250 ml @ 9 mls/hr TITRATE PRN IV Coagulation Management Last administered on 04/20/17 23:37; Start 04/20/17 at 22:45; Stop 04/21/17 at 08:47; Status DC Ondansetron HCl (Zofran Odt) 4 mg Q4H PRN PO NAUSEA OR VOMITING Last administered on 04/21/17 07:41; Start 04/21/17 at 04:00 Clonidine (Catapres) 0.2 mg Q6H PRN PO SBP> OR = 180, DBP> OR = 100; Start 04/21/17 at 05:45; Status Future Hold Pantoprazole Sodium (Protonix Inj) 40 mg Q12HR IV PUSH ; Start 04/21/17 at 09:30 Family History Father- heart disease Older sister- heart disease Brother- [place] Sister- esophageal cancer, DM Sister- Breast cancer, DM, ESRD on dialysis Social History Denies alcohol intake ever Denies smoking or nicotine use Denies illicit drug use (Mari Morales) Review of Systems Constitutional: COMPLAINS OF: Fatigue, DENIES: Fever, Weight gain, Weight loss , Chills, Change in appetite Cardiovascular: COMPLAINS OF: Chest pain Gastrointestinal: COMPLAINS OF: Abdominal pain (epigastric burning sensation ) , Diarrhea, Nausea, Vomiting, Heartburn, Hematemesis, DENIES: Black stools, Bloody stools, Constipation (Mari Morales) GI Exam Vitals I&O Vital Signs Date Time Temp Pulse Resp B/P (MAP) Pulse Ox O2 Delivery O2 Flow Rate FiO2 04/21/17 07:44 98.7 102 20 161/91 (114) 98 04/21/17 06:30 18 04/21/17 06:00 107 04/21/17 05:00 103 04/21/17 04:00 97 04/21/17 03:00 100.2 102 16 186/96 (126) 99 04/21/17 03:00 106 04/21/17 02:00 96 04/21/17 01:00 108 04/21/17 00:00 104 04/20/17 23:16 18 04/20/17 23:00 99.4 103 18 160/94 (116) 97 04/20/17 23:00 104 04/20/17 22:00 100 04/20/17 21:38 95 Nasal Cannula 2.00 04/20/17 21:00 91 04/20/17 21:00 99.0 101 22 162/88 (112) 100 04/20/17 20:00 93 04/20/17 18:21 98.0 110 18 156/83 (107) 04/20/17 12:31 98.1 98 18 195/105 (135) 04/20/17 11:41 188/93 (124) 04/20/17 11:34 99 190/84 (119) 04/20/17 11:33 04/20/17 11:31 108 17 220/101 (140) 100 Nasal Cannula 2.00 04/20/17 10:16 104 208/93 (131) 04/20/17 09:41 18 04/20/17 09:39 106 18 198/79 (118) 100 Nasal Cannula 2.00 I/O 04/20/17 04/20/17 04/20/17 04/21/17 04/21/17 04/21/17 07:00 15:00 23:00 07:00 15:00 23:00 Intake Total 938 ml 17.5 ml Balance 938 ml 17.5 ml Intake Oral 0 ml IV Total 938 ml 17.5 ml # Voids 12 Imaging Last Impressions Chest X-Ray 04/20/17 0000 Signed Impressions: Service Date/Time: Thursday, April 20, 2017 07:07 - CONCLUSION: 1. Left basilar scarring. Arturo Ruelas MD Laboratory Test 04/20/17 15:38 04/20/17 21:17 04/20/17 23:05 04/21/17 03:22 Troponin I 0.13 NG/ML 0.16 NG/ML 0.14 NG/ML White Blood Count 12.2 TH/MM3 Red Blood Count 4.26 MIL/MM3 Hemoglobin 14.4 GM/DL Hematocrit 42.9 % Mean Corpuscular Volume 100.7 FL Mean Corpuscular Hemoglobin 33.8 PG Mean Corpuscular Hemoglobin Concent 33.6 % Red Cell Distribution Width 15.9 % Platelet Count 225 TH/MM3 Mean Platelet Volume 8.1 FL Prothrombin Time 11.4 SEC Prothromb Time International Ratio 1.1 RATIO Activated Partial Thromboplast Time 29.4 SEC Test 04/21/17 03:23 04/21/17 08:20 White Blood Count 15.4 TH/MM3 Red Blood Count 4.30 MIL/MM3 Hemoglobin 14.4 GM/DL Hematocrit 43.2 % Mean Corpuscular Volume 100.3 FL Mean Corpuscular Hemoglobin 33.5 PG Mean Corpuscular Hemoglobin Concent 33.4 % Red Cell Distribution Width 15.3 % Platelet Count 215 TH/MM3 Mean Platelet Volume 8.0 FL Neutrophils (%) (Auto) 85.0 % Lymphocytes (%) (Auto) 9.0 % Monocytes (%) (Auto) 5.8 % Eosinophils (%) (Auto) 0.0 % Basophils (%) (Auto) 0.2 % Neutrophils # (Auto) 13.1 TH/MM3 Lymphocytes # (Auto) 1.4 TH/MM3 Monocytes # (Auto) 0.9 TH/MM3 Eosinophils # (Auto) 0.0 TH/MM3 Basophils # (Auto) 0.0 TH/MM3 CBC Comment DIFF FINAL Differential Comment Activated Partial Thromboplast Time 81.6 SEC Blood Urea Nitrogen 15 MG/DL Creatinine 0.99 MG/DL Random Glucose 149 MG/DL Total Protein 7.2 GM/DL Albumin 3.0 GM/DL Calcium Level 8.4 MG/DL Alkaline Phosphatase 95 U/L Aspartate Amino Transf (AST/SGOT) 30 U/L Alanine Aminotransferase (ALT/SGPT) 22 U/L Total Bilirubin 0.6 MG/DL Sodium Level 139 MEQ/L Potassium Level 3.2 MEQ/L Chloride Level 101 MEQ/L Carbon Dioxide Level 29.2 MEQ/L Anion Gap 9 MEQ/L Estimat Glomerular Filtration Rate 53 ML/MIN Physical Examination HEENT: Normocephalic; atraumatic; no jaundice. CHEST: CTA CARDIAC: RRR ABDOMEN: Soft, distended, nontender; no hepatosplenomegaly; bowel sounds are present in all four quadrants. EXTREMITIES: B/L lower leg edema. SKIN: No jaundice, wound to LLE. PACS ADMINISTRATOR: No focal deficits; alert and oriented times three. (Mari Morales) Assessment and Plan Plan Assessment - Hematemesis- Started yesterday, coffee-ground emesis- Hemoccult (+), reports multiple episodes throughout the night. Was on Heparin drip for rule out ACS, on hold at this time. Takes 2 baby ASA at home. Denies history of PUD, NSAID use, alcohol use. H/H 14.4/43.2. NGT to [facility]. EGD for tomorrow. PPI. - Diarrhea- Started on Saturday- 6-7 episodes, denies blood in stool or black, tarry stool. Was on Ciprofloxacin for UTI Apr 07-. Denies associated abdominal pain or cramping. C. Diff pending. Will order stool cultures to rule out other etiology. - Chest pain- rule out ACS per attending. Heparin on hold at this time Plan - NPO except meds - NGT to [facility] - EGD tomorrow - Obtain consent - Keep heparin on hold - PPI - Monitor labs - Notify GI of any active bleeding - Transfuse as needed - Stool culture and C. Diff pending - Further recommendations to follow based on results of above Pt seen and examined by myself and Dr. Skinner and this note is written on her behalf (Mari Morales) Physician Comments seen, examined agree with above ct abdomen/pelvis stool c diff amylase cardiac clearance for egd monitor hb/hct (Xenia Skinner MD) Mari Morales Apr 21, 2017 09:54 Xenia Skinner MD Apr 21, 2017 16:36
--- NOTE | 2017-04-21 11:52 | HHI.FPPN ---
Subjective Remarks Resident team paged overnight for worsening left-sided chest pressure. Troponin slightly trending up. Patient was started on heparin, but discontinued this morning due to several episodes of coffee-ground emesis. Gastric Hemoccult positive. Patient complains of epigastric pain. She denies SOB and CP. Afebrile. (Elif Cisse MD R1) Objective Vitals Vital Signs Date Time Temp Pulse Resp B/P (MAP) Pulse Ox O2 Delivery O2 Flow Rate FiO2 04/21/17 10:20 18 04/21/17 09:49 113 18 156/86 (109) 99 04/21/17 07:44 98.7 102 20 161/91 (114) 98 04/21/17 06:00 107 04/21/17 05:00 103 04/21/17 04:00 97 04/21/17 03:00 100.2 102 16 186/96 (126) 99 04/21/17 03:00 106 04/21/17 02:00 96 04/21/17 01:00 108 04/21/17 00:00 104 04/20/17 23:16 18 04/20/17 23:00 99.4 103 18 160/94 (116) 97 04/20/17 23:00 104 04/20/17 22:00 100 04/20/17 21:38 95 Nasal Cannula 2.00 04/20/17 21:00 91 04/20/17 21:00 99.0 101 22 162/88 (112) 100 04/20/17 20:00 93 04/20/17 18:21 98.0 110 18 156/83 (107) 04/20/17 12:31 98.1 98 18 195/105 (135) I/O 04/20/17 04/20/17 04/20/17 04/21/17 04/21/17 04/21/17 07:00 15:00 23:00 07:00 15:00 23:00 Intake Total 938 ml 17.5 ml Balance 938 ml 17.5 ml Intake Oral 0 ml IV Total 938 ml 17.5 ml # Voids 12 (Elif Cisse MD R1) Result Diagram: 04/21/17 0323 04/21/17 0820 Objective Remarks O. CONSTITUTIONAL/GEN: normally nourished, alert, sitting in bed, appears nauseated, several episodes of vomiting, complaining of chronic back pain EYES: conjunctiva normal, PERRLA, EOMI. ENT: Mouth and pharynx normal. Lips are dry NECK: Supple LUNGS: clear A-P, respiratory effort is normal. CARDIOVASCULAR: RR without murmur or gallop. No significant edema. GI/ABD: soft without masses, without organomegaly., epigastric tenderness, + BS NEURO: No focal deficits. SKIN: color pale HEME/LYMPH: Scattered ecchymoses on her upper extremities MUSC: Otherwise, extremities are normal in appearance. PSYCH/MENTAL STATUS: Alert and oriented x 3. (Elif Cisse MD R1) A/P Assessment and Plan 86 yr old F with multiple comorbidities (CAD, RA chronic back pain, GERD, hypothyroidism), hx of MA in 2005, admitted for diarrhea and NSTEMI r/o. Troponin slightly trending up. Cardiology consulted. Patient is now having episodes of ground-coffee emesis. GI consulted. (Elif Cisse MD R1) Attending Attestation Patient seen and examined. Case reviewed and discussed with the resident team. Agree with plan of care as discussed with me and documented in the resident note. (Nedra Zamora MD) Problem List: (1) Hematemesis ICD Codes: K92.0 - Hematemesis Plan: 1 day hx of coffee-ground emesis. Hemoccult positive. Reports multiple episodes throughout the night. * H/H 14.4/43.2 * NGT to [facility] * EGD for tomorrow * PPI * CBC and CMP pending for this afternoon (2) Chest discomfort ICD Codes: R07.89 - Other chest pain Status: Acute Plan: Hx of previous MA in 2005. Admitted for NSTEMI r/o * Cardiology consulted, appreciate recs * s/p 2 SL nitro tablets en route w/o relief, patient complains of no active chest pain in the ED * troponin 0.03, 0.13, 0.16, 0.14 * EKG sinus tachy, slight ST depression lead V4, nonspecific ST change s * SL nitroglycerin 0.4mg q5m PRN for chest pain * Hold aspirin 81mg chew daily due to hematemesis (3) Diarrhea ICD Codes: R19.7 - Diarrhea, unspecified Status: Acute Plan: Hx of recent abx use for UTI. 1-2 day hx of watery, nonbloody diarrhea. * C.diff tox PCR pending * Lipase ordered * stool and ova parasites ordered * enteric path ordered (4) Chronic back pain ICD Codes: M54.9 - Dorsalgia, unspecified; G89.29 - Other chronic pain Plan: Hx of kyphoplasty in the thoracic spine. Patient complains of severe back pain. * Dilaudid 0.5 mg IV push q4h PRN pain 6 to 10 (5) Rheumatoid arthritis ICD Codes: M06.9 - Rheumatoid arthritis, unspecified Plan: -Held methotrexate (6) HLD (hyperlipidemia) ICD Codes: E78.5 - Hyperlipidemia, unspecified Plan: -Held Pravastatin 80 mg PO hs (7) Essential tremor ICD Codes: G25.0 - Essential tremor Plan: -Continue home Primidone 50mg PO qid (8) Hypothyroid ICD Codes: E03.9 - Hypothyroidism, unspecified Plan: -Held Levothyroxine (9) GERD (gastroesophageal reflux disease) ICD Codes: K21.9 - Gastro-esophageal reflux disease without esophagitis Plan: -Held omeprazole -Protonix 40mg daily -Gaviscon 2 tab chew qid PRN nausea/gas (10) Nutrition, metabolism, and development symptoms ICD Codes: R63.8 - Other symptoms and signs concerning food and fluid intake Plan: Diet:NPO except meds Fluids: 112mls/hr MIVF other: monitor on telemetry, vitals q4h, monitor I & Os DVT ppx: none due to hematemesis (Elif Cisse MD R1) Problem Qualifiers (1) Hematemesis: Qualified Codes: K92.0 - Hematemesis Elif Cisse MD R1 Apr 21, 2017 11:52 Nedra Zamora MD Apr 21, 2017 14:14
[2017-04-21 15:15] LABS: AUTOMATED NEUTROPHIL # 12.9 TH/MM3 (1.8-7.7); BASOPHIL % 0.1 % (0.0-2.0); HEMATOCRIT 33.4 % (35.0-46.0); HEMO FLAGS DIFF FINAL; LYMPH % 7.1 % (9.0-44.0); MEAN CELL VOLUME 102.9 FL (80.0-100.0); MEAN CORPUSCULAR HEMOGLOBIN 33.4 PG (27.0-34.0); MEAN CORPUSCULAR HGB CONC 32.5 % (32.0-36.0); MONO % 5.2 % (0.0-8.0); NEUT % 87.6 % (16.0-70.0); PLATELET COUNT 154 TH/MM3 (150-450); RED BLOOD COUNT 3.25 MIL/MM3 (4.00-5.30); RED CELL DISTRIBUTION WIDTH 15.8 % (11.6-17.2); WHITE BLOOD COUNT 14.7 TH/MM3 (4.0-11.0)
[2017-04-21 15:43] LABS: BICARBONATE 25.2 MEQ/L (21.0-32.0); TOTAL BILIRUBIN ADULT 0.3 MG/DL (0.2-1.0)
[2017-04-21 15:54] LABS: CALCIUM-PROTEIN CORRECTED 7.1 MG/DL (8.5-10.1); POTASSIUM 2.7 MEQ/L (3.5-5.1)
--- NOTE | 2017-04-21 16:05 | MB ---
cc: SHANTHI JEFFERSON M.D., BARTON G. DO DATE OF CONSULTATION: 04/21/2017. IMPRESSIONS: 1. Chest discomfort suggestive of unstable angina. 2. History of coronary artery disease with a history of myocardial infarction in 2005. 3. Recent abnormal stress test. Dr. Jefferson, her primary quality management coordinator, has recently started her on nitro patch. 4. Upper GI bleed. She has an NG tube draining dark-brown fluid. 5. Labile hypertension. 6. Hypothyroidism. 7. Esophageal reflux disease, rule out esophageal spasm. 8. Recent urinary tract infection apparently treated with Cipro in March. RECOMMENDATIONS: 1. Will treat the patient as unstable angina. 2. Will not start the patient on aspirin or heparin and she does appear to have an active bleed. 3. She is scheduled for EGD tomorrow. 4. She is at increased risk of perioperative cardiac complications. 5. The patient is a DNR patient, I understand. CLINICAL DATA: Ms. Langford is an 86-year-old female admitted to the hospital with a several day history of diarrhea. She states that she developed chest discomfort. She took several nitroglycerin at home without relief of the discomfort and called paramedics. She was brought to the emergency room. EKG was unremarkable. Her cardiac enzymes were elevated with troponin at 0.14 and subsequently shawn to 0.16. Initially EKG did not demonstrate any significant changes. She had an EKG performed at 03:30 this morning demonstrating significant S-T-segment depression in the inferior leads. She has a history of myocardial infarction. She is not on a statin. Risk factors, she has never smoked cigarettes. She has no history of diabetes, though her admitting blood sugar was 149. She has no history of congestive heart failure or cardiac arrhythmias. Her chest discomfort has largely resolved. She apparently was nauseated with vomiting this morning. An NG tube placed began return of dark blackish fluid which is guaiac-positive. PAST MEDICAL HISTORY: Her other significant medical problems include: 1. Rheumatoid arthritis. 2. Essential tremor. 3. She has a history of hypothyroidism. 4. There is no history of liver or kidney disease. PAST SURGICAL HISTORY: Her surgical history includes: 1. Bilateral knee replacements. 2. Right hip replacement. 3. Rotator cuff surgery, right and left. 4. Cholecystectomy. 5. Lumbar laminectomy. 6. Kyphoplasty, multilevel. 7. Cataract surgery. ALLERGIES: 1. DICLOFENAC. 2. PENICILLIN. 3. PIROXICAM. REVIEW OF SYSTEMS: She has had no syncope. She has had no palpitations. No lower extremity edema. She states that when she had the chest discomfort, she was mildly short of breath. PHYSICAL EXAMINATION: GENERAL: The physical exam at this time demonstrates an alert oriented female. She has a nasogastric tube in. Breathing oxygen per nasal cannula. No apparent distress. VITAL SIGNS: She is in a regular rate and rhythm. Most recent blood pressure 160/90 with a heart rate of 100. HEAD, EYES, EARS, NOSE, THROAT: The sclerae are nonicteric. NECK: Jugular venous pressures are normal. There are no bruits. LUNGS: She has clear lung bernardo. CARDIAC: Regular rate and rhythm. 1/6 systolic ejection murmur. ABDOMEN: Abdomen soft and nontender. EXTREMITIES: Free of cyanosis, clubbing or edema. EKGS: A 12-lead EKG is as noted above, sinus rhythm, nonspecific S-T-T changes. LABORATORY STUDIES: On admission, lytes 139, 3.2, 101, 29 with a BUN of 15, creatinine of 1. Normal transaminases. Elevated troponins. Her hematocrit on admission was 39 and has fallen to 33. Platelet count on admission was 190 with a white cell count of 8600. DISCUSSION: This is an 86-year-old female admitted to the hospital with chest pain. She has evidence of an upper GI bleed with developing anemia. RECOMMENDATIONS: As noted above. DO ARABELLA Reed/LELE /3:26 PM /3:49 PM
[2017-04-21] MEDS ORDERED: D5-NS + KCL 20 MEQ INJ 1,000 ML IV SCH (16:15)
[2017-04-21] MEDS: D5-NS + KCL 40 MEQ INJ 1,000 ML IV SCH (16:55)
[2017-04-21] MEDS: NITROGLYCERIN 2% OINT 1 GM PACKET TOPICAL SCH ×2 (16:56→21:39)
[2017-04-21] MEDS: METOPROLOL TARTRATE 5 MG/5 ML VIAL IV PUSH SCH ×2 (16:57→21:42)
[2017-04-21] MEDS ORDERED: DIATRIZOATE MEGLUM/DIATRIZOATE SOD 9 ML CUP PO ONE (17:00)
[2017-04-21] MEDS: ONDANSETRON HCL 4 MG/2 ML VIAL IV PUSH PRN ×2 (17:33→21:33)
[2017-04-21 20:36] LABS: HEMATOCRIT 39.9 % (35.0-46.0); REVIEW FLAG FINAL
[2017-04-21 20:59] LABS: BICARBONATE 31.3 MEQ/L (21.0-32.0); POTASSIUM 3.9 MEQ/L (3.5-5.1)
[2017-04-21] MEDS ORDERED: POVIDONE IODINE 5% (ANTISEPSIS KIT) 4 APPLICATIONS EACH NARE PRN (21:30)
[2017-04-21] MEDS ORDERED: LACTATED RINGER'S 1000 ML IV PRN (21:30)
[2017-04-21] MEDS ORDERED: SODIUM CHLORID 0.9% 500 ML IV PRN (21:30)
[2017-04-21] MEDS ORDERED: CHLORHEXIDINE GLUCONATE 2 % 1 PACK (2 CLOTHS) TOPICAL PRN (21:30)
--- NOTE | 2017-04-21 22:17 | EKG ---
Date Performed: 04/21/2017 Time Performed: 03:32:14 PTAGE: 86 years EKG: Sinus tachycardia with PVC(s) Inferior and anterior ST-T changes are nonspecific Borderline ECG NO PREVIOUS TRACING DOCTOR: Arturo Oliver Interpretating Date/Time 04/21/2017 22:16:45
--- NOTE | 2017-04-21 22:25 | EKG ---
Date Performed: 04/20/2017 Time Performed: 22:25:20 PTAGE: 86 years EKG: Sinus tachycardia. Septal ST-T changes are nonspecific Borderline ECG PREVIOUS TRACING : 04/20/2017 20.38 Compared to prior tracing no significant change DOCTOR: Arturo Oliver Interpretating Date/Time 04/21/2017 22:23:42
--- NOTE | 2017-04-21 22:32 | EKG ---
Date Performed: 04/20/2017 Time Performed: 20:38:54 PTAGE: 86 years EKG: Sinus rhythm with borderline 1st degree A-V block Inferior T wave changes are nonspecific Borderline ECG NO PREVIOUS TRACING DOCTOR: Arturo Oliver Interpretating Date/Time 04/21/2017 22:31:27
--- NOTE | 2017-04-21 22:44 | EKG ---
Date Performed: 04/20/2017 Time Performed: 15:57:48 PTAGE: 86 years EKG: Sinus tachycardia. Septal ST-T changes are nonspecific Borderline ECG PREVIOUS TRACING : 04/20/2017 07.49 Compared to prior tracing no significant change DOCTOR: Arturo Oliver Interpretating Date/Time 04/21/2017 22:43:27
--- NOTE | 2017-04-21 23:00 | EKG ---
Date Performed: 04/20/2017 Time Performed: 07:49:03 PTAGE: 86 years EKG: Sinus rhythm WITH FIRST DEGREE AV BLOCK MINIMAL ST DEPRESSION ABNORMAL ECG PREVIOUS TRACING : 04/20/2017 06.48 Compared to prior tracing no significant change DOCTOR: Arturo Oliver Interpretating Date/Time 04/21/2017 22:59:50
--- NOTE | 2017-04-21 23:01 | EKG ---
Date Performed: 04/20/2017 Time Performed: 06:48:18 PTAGE: 86 years EKG: Sinus rhythm WITH FIRST DEGREE AV BLOCK ABNORMAL ECG PREVIOUS TRACING : 10/27/2011 07.55 Compared to prior tracing no significant change DOCTOR: Arturo Oliver Interpretating Date/Time 04/21/2017 23:00:25
[2017-04-22] VITALS (34 sets, daily range): BP systolic 129–204; BP diastolic 72–105; PULSE 86–111; RESP 18–20; TEMP 98.6–98.9; O2SAT 94–100
[2017-04-22] MEDS: LABETALOL HCL 100 MG/20 ML VIAL IV PUSH PRN ×2 (00:42→09:30)
[2017-04-22] MEDS: ONDANSETRON HCL 4 MG/2 ML VIAL IV PUSH PRN ×3 (04:02→17:13)
[2017-04-22] MEDS: HYDROmorphone HCL PF 1 MG/ML VIAL IV PUSH PRN ×4 (04:06→22:00)
[2017-04-22] MEDS ORDERED: DIATRIZOATE MEGLUM/DIATRIZOATE SOD 9 ML CUP PO ONE ×2 (06:00→15:30)
[2017-04-22] MEDS: D5-NS + KCL 40 MEQ INJ 1,000 ML IV SCH ×2 (06:09→20:50)
[2017-04-22] MEDS: METOPROLOL TARTRATE 5 MG/5 ML VIAL IV PUSH SCH ×5 (06:15→23:44)
[2017-04-22] MEDS: NITROGLYCERIN 2% OINT 1 GM PACKET TOPICAL SCH ×4 (06:16→23:43)
[2017-04-22 06:27] LABS: HEMATOCRIT 38.3 % (35.0-46.0); MEAN CELL VOLUME 103.8 FL (80.0-100.0); MEAN CORPUSCULAR HEMOGLOBIN 34.2 PG (27.0-34.0); PLATELET COUNT 165 TH/MM3 (150-450); RED BLOOD COUNT 3.68 MIL/MM3 (4.00-5.30); REVIEW FLAG FINAL; WHITE BLOOD COUNT 12.5 TH/MM3 (4.0-11.0)
[2017-04-22 07:02] LABS: BICARBONATE 32.5 MEQ/L (21.0-32.0); POTASSIUM 4.8 MEQ/L (3.5-5.1)
--- NOTE | 2017-04-22 08:30 | PD.CARD.PN ---
Subjective Subjective Remarks Denies CP or SOB. Still has NGT due to recurrent nausea/emesis. Awaiting endoscopy. No active bleeding noted. She had a pharm-stress MPI in my office on 03/19/17. That revealed lateral wall ischemia. She was asymptomatic so was recommeded medical therapy and close follow up. Objective Medications Current Medications Medications (Trade) Dose Ordered Sig/Jakub Route Start Time Stop Time Status Last Admin (NS Flush) 2 ml UNSCH PRN IV FLUSH 04/20/17 10:45 (NS Flush) 2 ml BID IV FLUSH 04/20/17 10:45 04/21/17 21:34 (Tylenol) 650 mg Q4H PRN PO 04/20/17 10:45 Future Hold (Narcan Inj) 0.4 mg UNSCH PRN IV PUSH 04/20/17 10:45 (Trandate Inj) 10 mg Q4H PRN IV PUSH 04/20/17 10:45 04/22/17 00:42 (Nitrostat Sl) 0.4 mg Q5M PRN SL 04/20/17 11:15 04/20/17 22:23 (Protonix) 40 mg DAILY PO 04/20/17 11:15 Future Hold (Elavil) 50 mg HS PO 04/20/17 21:00 Future Hold (Folate) 1 mg DAILY PO 04/20/17 11:15 Future Hold (Mysoline) 50 mg QID PO 04/20/17 13:00 Future Hold (Inderal La) 80 mg DAILY PO 04/20/17 11:15 Future Hold (Pravachol) 80 mg HS PO 04/20/17 21:00 Future Hold (Gaviscon Reg Strength Chew) 2 tab QID PRN CHEW 04/20/17 14:45 04/20/17 22:05 (Dilaudid Pf Inj) 0.5 mg Q4H PRN IV PUSH 04/21/17 02:30 04/22/17 04:06 (Catapres) 0.2 mg Q6H PRN PO 04/21/17 05:45 Future Hold (Protonix Inj) 40 mg Q12HR IV PUSH 04/21/17 09:30 04/21/17 21:37 (Lopressor Inj) 5 mg Q6H IV PUSH 04/21/17 17:00 04/22/17 06:15 (Nitroglycerin 2% Oint) 1 inch Q6H TOPICAL 04/21/17 17:00 04/22/17 06:16 Potassium Chloride/Dextrose/ Sod Cl 1,000 ml @ 75 mls/hr [id number] IV 04/21/17 17:00 04/22/17 06:09 (Zofran Inj) 4 mg Q6H PRN IV PUSH 04/21/17 17:00 04/22/17 04:02 Lactated Ringer's 1,000 ml @ 30 mls/hr Q24H PRN IV 04/21/17 21:30 04/24/17 21:29 Sodium Chloride 500 ml @ 30 mls/hr [id number] PRN IV 04/21/17 21:30 04/24/17 21:29 (Betadine 5% Antisepsis Kit) 1 applic CHIEF NURSING EXECUTIVE PRN EACH NARE 04/21/17 21:30 04/24/17 21:29 (Chlorhexidine 2% Cloth) 3 pack CHIEF NURSING EXECUTIVE PRN TOPICAL 04/21/17 21:30 04/24/17 21:29 Vital Signs / I&O Vital Signs Date Time Temp Pulse Resp B/P (MAP) Pulse Ox O2 Delivery O2 Flow Rate FiO2 04/22/17 07:29 100 21 04/22/17 06:00 100 04/22/17 05:00 92 04/22/17 04:00 104 04/22/17 04:00 99 20 129/87 (101) 100 04/22/17 03:00 100 04/22/17 02:00 86 04/22/17 01:00 94 04/22/17 00:30 98.9 101 20 173/88 (116) 100 04/22/17 00:00 90 04/21/17 23:00 88 04/21/17 22:00 84 04/21/17 21:00 102 04/21/17 20:00 99.0 107 18 172/93 (119) 97 04/21/17 20:00 106 04/21/17 19:00 97 04/21/17 18:30 17 04/21/17 18:00 92 04/21/17 17:00 104 04/21/17 16:00 94 04/21/17 15:10 98.1 99 18 145/77 (99) 100 04/21/17 15:00 95 04/21/17 14:00 98 04/21/17 13:00 114 04/21/17 12:00 106 04/21/17 11:00 98.1 102 18 136/71 (92) 98 04/21/17 11:00 98 04/21/17 11:00 99 04/21/17 10:00 106 04/21/17 09:49 113 18 156/86 (109) 99 04/21/17 09:00 114 I/O 04/21/17 04/21/17 04/21/17 04/22/17 04/22/17 04/22/17 07:00 15:00 23:00 07:00 15:00 23:00 Intake Total 938 ml 17.5 ml 893 ml Output Total 400 ml 700 ml Balance 938 ml 17.5 ml 493 ml -700 ml Intake Oral 0 ml 240 ml IV Total 938 ml 17.5 ml 653 ml Output Gastric Drainage Total 400 ml 700 ml # Voids 12 3 2 Physical Exam BP and HR high. No JVD Lung: CTA Heart Reg, S1,S2, no murmur. Ext: No C/C/E Neuro: Non-focal Laboratory Laboratory Tests Test 04/21/17 14:56 04/21/17 19:34 04/22/17 05:46 White Blood Count 14.7 TH/MM3 12.5 TH/MM3 Red Blood Count 3.25 MIL/MM3 3.68 MIL/MM3 Hemoglobin 10.9 GM/DL 12.9 GM/DL 12.6 GM/DL Hematocrit 33.4 % 39.9 % 38.3 % Mean Corpuscular Volume 102.9 FL 103.8 FL Mean Corpuscular Hemoglobin 33.4 PG 34.2 PG Mean Corpuscular Hemoglobin Concent 32.5 % 33.0 % Red Cell Distribution Width 15.8 % 16.0 % Platelet Count 154 TH/MM3 165 TH/MM3 Mean Platelet Volume 7.9 FL 8.4 FL Neutrophils (%) (Auto) 87.6 % Lymphocytes (%) (Auto) 7.1 % Monocytes (%) (Auto) 5.2 % Eosinophils (%) (Auto) 0.0 % Basophils (%) (Auto) 0.1 % Neutrophils # (Auto) 12.9 TH/MM3 Lymphocytes # (Auto) 1.0 TH/MM3 Monocytes # (Auto) 0.8 TH/MM3 Eosinophils # (Auto) 0.0 TH/MM3 Basophils # (Auto) 0.0 TH/MM3 CBC Comment DIFF FINAL Differential Comment Blood Urea Nitrogen 16 MG/DL 20 MG/DL 18 MG/DL Creatinine 0.71 MG/DL 0.90 MG/DL 0.99 MG/DL Random Glucose 112 MG/DL 143 MG/DL 149 MG/DL Total Protein 4.8 GM/DL Albumin 2.0 GM/DL Calcium Level 6.0 MG/DL 8.2 MG/DL 8.4 MG/DL Alkaline Phosphatase 57 U/L Aspartate Amino Transf (AST/SGOT) 17 U/L Alanine Aminotransferase (ALT/SGPT) 16 U/L Total Bilirubin 0.3 MG/DL Sodium Level 147 MEQ/L 140 MEQ/L 143 MEQ/L Potassium Level 2.7 MEQ/L 3.9 MEQ/L 4.8 MEQ/L Chloride Level 114 MEQ/L 103 MEQ/L 107 MEQ/L Carbon Dioxide Level 25.2 MEQ/L 31.3 MEQ/L 32.5 MEQ/L Anion Gap 8 MEQ/L 6 MEQ/L 4 MEQ/L Estimat Glomerular Filtration Rate 78 ML/MIN 60 ML/MIN 53 ML/MIN Protein Corrected Calcium 7.1 MG/DL Lipase 118 U/L Assessment and Plan Problem List: (1) Acute GI bleeding ICD Codes: K92.2 - Gastrointestinal hemorrhage, unspecified (2) ASHD (arteriosclerotic heart disease) ICD Codes: I25.10 - Atherosclerotic heart disease of [place] coronary artery without angina pectoris (3) Demand ischemia of myocardium ICD Codes: I24.8 - Other forms of acute ischemic heart disease (4) Hypertension ICD Codes: I10 - Essential (primary) hypertension Assessment and Plan Still NPO and on IV meds only. Adjust meds for BP and HR control. Conservative management due to recen GI bleed and anemia. Proceed with GI workup. Antiplatelets and anticoagulants are contraindicated at this time until GI bleeding rectified. Following with you. See orders. Discussed Condition With Patient and staff accountant. Gonzalez Jefferson MD Apr 22, 2017 08:30
--- NOTE | 2017-04-22 08:55 | HHI.FPPN ---
Subjective Remarks No acute events overnight. BPs ranging 120s-170s/80s-90s past 24 hours. HR 80s- 100s. 1100cc noted of gastric drainage via NGT. Patient seen and examined this morning. Patient reports her most significant source of pain remains from her chronic low back pain. She also endorses "abdominal discomfort" rating this at a 5/10. Also endorsing chest "discomfort" but no delphine pain or pressure; she states this chest discomfort is improved from the prior day and night. Denies nausea, no vomiting as patient is on LIWS with NGT. States her last BM was Saturday. Endorses + flatus. Denies radiation of abdominal discomfort. Denies fever. (Levon Goldberg MD R2) Objective Vitals Vital Signs Date Time Temp Pulse Resp B/P (MAP) Pulse Ox O2 Delivery O2 Flow Rate FiO2 04/22/17 07:29 100 21 04/22/17 06:00 100 04/22/17 05:00 92 04/22/17 04:00 104 04/22/17 04:00 99 20 129/87 (101) 100 04/22/17 03:00 100 04/22/17 02:00 86 04/22/17 01:00 94 04/22/17 00:30 98.9 101 20 173/88 (116) 100 04/22/17 00:00 90 04/21/17 23:00 88 04/21/17 22:00 84 04/21/17 21:00 102 04/21/17 20:00 99.0 107 18 172/93 (119) 97 04/21/17 20:00 106 04/21/17 19:00 97 04/21/17 18:30 17 04/21/17 18:00 92 04/21/17 17:00 104 04/21/17 16:00 94 04/21/17 15:10 98.1 99 18 145/77 (99) 100 04/21/17 15:00 95 04/21/17 14:00 98 04/21/17 13:00 114 04/21/17 12:00 106 04/21/17 11:00 98.1 102 18 136/71 (92) 98 04/21/17 11:00 98 04/21/17 11:00 99 04/21/17 10:00 106 04/21/17 09:49 113 18 156/86 (109) 99 04/21/17 09:00 114 I/O 04/21/17 04/21/17 04/21/17 04/22/17 04/22/17 04/22/17 07:00 15:00 23:00 07:00 15:00 23:00 Intake Total 938 ml 17.5 ml 893 ml Output Total 400 ml 700 ml Balance 938 ml 17.5 ml 493 ml -700 ml Intake Oral 0 ml 240 ml IV Total 938 ml 17.5 ml 653 ml Output Gastric Drainage Total 400 ml 700 ml # Voids 12 3 2 (Levon Goldberg MD R2) Result Diagram: 04/22/1754504/22/17545 Objective Remarks GEN: NAD, NGT in place to LIWS SKIN: 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 Warm and dry. HEAD: Atraumatic. Normocephalic. EYES: EOMI. No scleral icterus. No injection or drainage. ENT: Dry mucous membranes. NECK: Supple. No JVD CARDIOVASCULAR: Regular rate and rhythm without murmurs, gallops, or rubs. RESPIRATORY: Clear to auscultation. Breath sounds equal bilaterally. No wheezes , rales, or rhonchi. GASTROINTESTINAL: Abdomen soft, nontender, slight distension. No hepatosplenomegaly or palpable masses. No guarding. No rebound tenderness. MUSCULOSKELETAL: Extremities without edema. No calf tenderness. NEUROLOGICAL: Awake and alert. Cranial nerves grossly intact. Motor grossly normal. Normal speech. (Levon Goldberg MD R2) A/P Assessment and Plan 86 year old woman with multiple comorbidities including CAD, RA, chronic back pain, GERD, hypothyroidism, hx of MN in 2005, admitted for diarrhea and NSTEMI r /o. Cardiology and GI consult. Plan as below. Discharge Planning Unclear timetable at this time Pending workup and further studies per gastrology recommendations (Levon Goldberg MD R2) Attending Attestation Patient seen and examined. Case reviewed and discussed with the resident team. Agree with plan of care as discussed with me and documented in the resident note. (Nedra Zamora MD) Problem List: (1) Hematemesis ICD Codes: K92.0 - Hematemesis Plan: 1-2 day history of multiple episodes of coffee-ground emesis. Gastroccult positive performed on 04/21 prior to gastroenterology consultation. * Hemoglobin remaining stable * Continue NGT to LIWS, consider clamping and then removal if patient does not develop further nausea and vomiting * EGD per gastroenterology 04/22 * CT abd/pelvis ordered by GI, will follow results * Continue Protonix 40 mg IV q12h * Holding PO medications at this time * Zofran prn N/V (2) Acute GI bleeding ICD Codes: K92.2 - Gastrointestinal hemorrhage, unspecified Status: Acute Plan: Plan as above (3) Hypertension ICD Codes: I10 - Essential (primary) hypertension Plan: Blood pressure remaining elevated, noted up to 190s/100s Consider essential hypertension with prominent component of pain contributing Continue Labetalol 10 mg IV q4h prn BP > 160/90 Vasotec 2.5 mg IV q8h for increases in BPs Metoprolol 5 mg IV q4h scheduled Cardiology consulted, appreciate recommendations Will likely need PO antihypertensives once taking PO and pain adequately controlled (4) Chest discomfort ICD Codes: R07.89 - Other chest pain Status: Acute Plan: Hx of previous MN in 2005. Admitted for NSTEMI r/o Cardiology consulted, appreciate recs Troponins trending 0.03, 0.13, 0.16, 0.14 EKG sinus tach, slight ST depression lead V4, nonspecific ST changes SL nitroglycerin 0.4mg q5m PRN for chest pain Hold heparin and baby aspirin due to hematemesis Continue nitro patch q6h, hold for BP < 100/[address] Jefferson, patient with pharm-stress MPI in office on 03/19/2017 revealing lateral wall ischemia, patient was asymptomatic at that time (5) Chronic back pain ICD Codes: M54.9 - Dorsalgia, unspecified; G89.29 - Other chronic pain Status: Chronic Plan: Hx of kyphoplasty in the thoracic spine. Patient complains of severe back pain, stating this is unchanged from baseline. - Dilaudid 0.5 mg IV push q4h PRN pain 6 to 10 (6) Rheumatoid arthritis ICD Codes: M06.9 - Rheumatoid arthritis, unspecified Plan: - Held methotrexate on admission given concern for sepsis - Patient states she takes this every Saturday - Will restart once taking PO - Continue folic acid daily once daily, hold on days receiving MTX (7) HLD (hyperlipidemia) ICD Codes: E78.5 - Hyperlipidemia, unspecified Plan: - Restart pravastatin 80 mg PO hs on taking PO (8) Essential tremor ICD Codes: G25.0 - Essential tremor Plan: - Holding home Primidone 50mg PO qid (9) Hypothyroid ICD Codes: E03.9 - Hypothyroidism, unspecified Status: Chronic Plan: -Held Levothyroxine (10) GERD (gastroesophageal reflux disease) ICD Codes: K21.9 - Gastro-esophageal reflux disease without esophagitis Status: Chronic Plan: - IV Protonix as above - Gaviscon 2 tab chew qid PRN nausea/gas (11) Diarrhea ICD Codes: R19.7 - Diarrhea, unspecified Status: Resolved Plan: Hx of recent abx use for UTI. 1-2 day hx of watery, nonbloody diarrhea. * Obtain C.diff tox PCR once patient has a BM * Lipase WNL (12) Nutrition, metabolism, and development symptoms ICD Codes: R63.8 - Other symptoms and signs concerning food and fluid intake Plan: Nutrition: NPO Electrolytes: WNL Fluids: D5-1/2NS at 75 cc/hr DVT ppx: b/l SCDs, anticoagulation contraindicated due to GI bleeding (Levon Goldberg MD R2) Problem Qualifiers (1) Hematemesis: Qualified Codes: K92.0 - Hematemesis Levon Goldberg MD R2 Apr 22, 2017 08:55 Nedra Zamora MD Apr 22, 2017 15:05
[2017-04-22] MEDS: SODIUM CHLORIDE 0.9% FLUSH 10 ML FLUSH IV FLUSH SCH ×2 (09:00→23:43)
[2017-04-22] MEDS ORDERED: ENALAPRILAT 2.5 MG/2 ML VIAL IV PUSH PRN ×2 (09:00→17:00)
[2017-04-22] MEDS: PANTOPRAZOLE SODIUM 40 MG VIAL IV PUSH SCH ×2 (09:36→22:00)
--- NOTE | 2017-04-22 11:28 | GIPROC ---
[facility] [address] [facility]. [facility], [address] EGD PROCEDURE REPORT EXAM DATE: 04/22/2017 PATIENT NAME: Carine Langford MR #: [id number] BIRTHDATE: 1930 ATTENDING: Jessi Burciaga MD ORDER #: [id number] TEST HOLE DRILLER: Mercy Zimmerman and Carolyn Ford STATUS: inpatient INDICATIONS: The patient is a 86 yr old female here for an EGD due to acute post hemorrhagic anemia PROCEDURE PERFORMED: EGD w/ ablation MEDICATIONS: None and Per Anesthesia. TOPICAL ANESTHETIC: CONSENT: The patient understands the risks and benefits of the procedure and understands that these risks include, but are not limited to: sedation, allergic reaction, infection, perforation and/or bleeding. Alternative means of evaluation and treatment include, among others: physical exam, x-rays, and/or surgical intervention. The patient elects to proceed with this endoscopic procedure. medical equipment was checked for proper function. Hand hygiene and appropriate measures for infection prevention was taken. After the risks, benefits and alternatives of the procedure were thoroughly explained, Informed consent was verified, confirmed and timeout was successfully executed by the treatment team. The patient was anesthetized with topical anesthesia and the Pentax [id number] endoscope was introduced through the mouth and advanced to the second portion of the duodenum. Retroflexed views revealed no abnormalities The gastroscope was then slowly withdrawn and removed. ESOPHAGUS: There was LA Class A esophagitis noted. STOMACH: A medium sized bleeding angioectasia was found in the gastric body. Argon plasma coagulation was applied to the site(s). With complete hemostasis achieved. DUODENUM: The duodenal mucosa appeared normal in the bulb and second portion of the duodenum. ADVERSE EVENTS: There were no complications. IMPRESSIONS: 1. There was LA Class A esophagitis noted 2. Bleeding angioectasia in the gastric body; Argon plasma coagulation was applied to the site(s); with complete hemostasis achieved 3. Normal duodenal mucosa in the bulb and second portion of the duodenum 4. Retroflexed views revealed no abnormalities 5. 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 Anti-reflux regimen 2. Continue PPI 3. Avoid NSAIDS PATIENT CONDITION: stable DISPOSITION: Inpatient REPEAT EXAM: Return 1 year EGD Jessi Burciaga MD eSigned: Jessi Burciaga MD 04/22/2017 11:28 AM cc: PATIENT NAME: Primitivo Carine J MR#: [id number]
[2017-04-22] MEDS ORDERED: DO NOT ADM ANY ANTICOAGULANT DRUGS PRN (11:36)
[2017-04-22] MEDS ORDERED: *LABETALOL HCL 100 MG/20 ML VIAL PERIprocedural Use ONLY ONE (11:47)
[2017-04-22] MEDS ORDERED: *PROMETHAZINE 25 MG/ML VIAL PERIprocedural use ONLY ONE (11:59)
[2017-04-22] MEDS ORDERED: PROPOFOL 200 MG/20 ML AMP IV ONE (12:00)
[2017-04-22] MEDS ORDERED: LIDOCAINE HCL 1% PF 5 ML SYRINGE OTHER ONE (12:00)
[2017-04-22] MEDS ORDERED: *ENALAPRILAT 1.25 MG/ML VIAL PERIprocedural Use ONLY ONE (12:16)
[2017-04-22] MEDS ORDERED: LABETALOL HCL 100 MG/20 ML VIAL IV PUSH PRN (16:00)
[2017-04-22] MEDS ORDERED: hydrALAZINE HCL 20 MG/ML VIAL IV PUSH ONE (17:00)
[2017-04-22] MEDS ORDERED: hydrALAZINE HCL 20 MG/ML VIAL IV PUSH PRN (17:00)
[2017-04-22] MEDS ORDERED: LORazepam 2 MG/ML VIAL IV PUSH ONE (18:30)
[2017-04-22] MEDS ORDERED: IOHEXOL 350 MG/ML 10 ML VIAL (for RAD DIAG) IVCONTRAST ONE (21:27)
--- NOTE | 2017-04-22 21:43 | RADRPT ---
EXAM DATE/TIME: 04/22/2017 21:24 [facility] COMPARISON: CT ABDOMEN & PELVIS W CONTRAST, May 11, 2011, 4:09. INDICATIONS : Diffuse abdomen pain, nausea and vomiting. IV CONTRAST: 73 cc Omnipaque 350 (iohexol) IV ORAL CONTRAST: Prescribed oral contrast ingested. RADIATION DOSE: 18.93 CTDIvol (mGy) MEDICAL HISTORY : Cardiovascular disease. Hypertension. Rheumatoid arthritis.diabetes SURGICAL HISTORY : Cholecystectomy. Kyphoplasty. ENCOUNTER: Initial ACUITY: 1 day PAIN SCALE: 6/10 LOCATION: Bilateral abdomen TECHNIQUE: Volumetric scanning of the abdomen and pelvis was performed. Using automated exposure control and ad justment of the mA and/or kV according to patient size, radiation dose was kept as low as reasonably achievable to obtain optimal diagnostic quality images. DICOM format image data is available electro nically for review and comparison. FINDINGS: There is chronic dilatation of the central intrahepatic and extrahepatic biliary system which is unch anged compared to the previous examination in April of 2011. The gallbladder has been resected. Th e liver is unremarkable without focal mass. Tiny bilateral pleural effusions are noted with adjacent alveolar consolidations suggesting compressive atelectasis and/or pneumonia. The spleen is normal. Th e pancreas is stable an abscess no focal mass. The adrenal glands are normal bilaterally. There are s table right renal cysts. No acute obstructive uropathy is noted. The bowel aorta and inferior cava ar e stable. The stomach is distended with air which is nonspecific. No small or large bowel obstruction is noted. Mild compression deformities involving L1 and L2 are noted and are indeterminate in ages. Degenerative changes and scoliosis of the thoracolumbar spine are noted. CONCLUSION: 1. Bibasilar alveolar consolidations consistent with compressive atelectasis and/or pneumonia. Clinic al correlation is recommended. 2. Small bilateral pleural effusions. 3. Chronic dilatation of the intrahepatic and extrahepatic biliary system which is unchanged compared to April of 2011. 4. Air-filled distended stomach which is nonspecific but raises the possibility of gastric outlet obs truction. 5. Mild compression from his involving L1 and L2 of indeterminate ages. 6. Degenerative changes and scoliosis of the thoracolumbar spine. Rubens Brady MD on April 22, 2017 at 21:33 Board Certified Radiologist. This report was verified electronically.
[2017-04-22] MEDS: TEMAZEPAM 15 MG CAP PO PRN (23:44)
[2017-04-23] VITALS (31 sets, daily range): BP systolic 138–192; BP diastolic 65–102; PULSE 90–118; RESP 18; TEMP 97.7–99; O2SAT 98–100
[2017-04-23] MEDS: METOPROLOL TARTRATE 5 MG/5 ML VIAL IV PUSH SCH ×3 (04:20→11:36)
[2017-04-23] MEDS: HYDROmorphone HCL PF 1 MG/ML VIAL IV PUSH PRN ×2 (04:48→11:29)
[2017-04-23] MEDS: NITROGLYCERIN 2% OINT 1 GM PACKET TOPICAL SCH ×4 (04:48→23:00)
[2017-04-23] MEDS: SODIUM CHLOR 0.9% 1000 ML INJ 1,000 ML IV SCH ×2 (05:01→18:05)
[2017-04-23 06:37] LABS: HEMATOCRIT 39.1 % (35.0-46.0); MEAN CELL VOLUME 103.7 FL (80.0-100.0); MEAN CORPUSCULAR HEMOGLOBIN 34.7 PG (27.0-34.0); MEAN CORPUSCULAR HGB CONC 33.5 % (32.0-36.0); PLATELET COUNT 156 TH/MM3 (150-450); RED BLOOD COUNT 3.77 MIL/MM3 (4.00-5.30); WHITE BLOOD COUNT 18.3 TH/MM3 (4.0-11.0)
[2017-04-23 06:41] LABS: REVIEW FLAG FINAL
--- NOTE | 2017-04-23 06:50 | PD.CARD.PN ---
Subjective Subjective Remarks Intermittent chest pressure yesterday now resolved. No SOB. Still having nausea and emesis unable to take food or meds PO. BP high yesterday now controlled on IV meds. No active bleeding noted. Gastric AVM's laser treatments done yesterday. CT abd/pelvis completed last night. She had a pharm-stress MPI in my office on 03/19/17. That revealed lateral wall ischemia. She was asymptomatic so was recommended medical therapy and close follow up. Objective Medications Current Medications Medications (Trade) Dose Ordered Sig/Jakub Route Start Time Stop Time Status Last Admin (NS Flush) 2 ml UNSCH PRN IV FLUSH 04/20/17 10:45 (NS Flush) 2 ml BID IV FLUSH 04/20/17 10:45 04/22/17 23:43 (Tylenol) 650 mg Q4H PRN PO 04/20/17 10:45 Future Hold (Narcan Inj) 0.4 mg UNSCH PRN IV PUSH 04/20/17 10:45 (Nitrostat Sl) 0.4 mg Q5M PRN SL 04/20/17 11:15 04/20/17 22:23 (Protonix) 40 mg DAILY PO 04/20/17 11:15 Future Hold (Elavil) 50 mg HS PO 04/20/17 21:00 Future Hold (Folate) 1 mg DAILY PO 04/20/17 11:15 Future Hold (Mysoline) 50 mg QID PO 04/20/17 13:00 Future Hold (Inderal La) 80 mg DAILY PO 04/20/17 11:15 Future Hold (Pravachol) 80 mg HS PO 04/20/17 21:00 Future Hold (Gaviscon Reg Strength Chew) 2 tab QID PRN CHEW 04/20/17 14:45 04/20/17 22:05 (Dilaudid Pf Inj) 0.5 mg Q4H PRN IV PUSH 04/21/17 02:30 04/23/17 04:48 (Catapres) 0.2 mg Q6H PRN PO 04/21/17 05:45 Future Hold (Protonix Inj) 40 mg Q12HR IV PUSH 04/21/17 09:30 04/22/17 22:00 (Nitroglycerin 2% Oint) 1 inch Q6H TOPICAL 04/21/17 17:00 04/23/17 04:48 (Zofran Inj) 4 mg Q6H PRN IV PUSH 04/21/17 17:00 04/22/17 17:13 Lactated Ringer's 1,000 ml @ 30 mls/hr Q24H PRN IV 04/21/17 21:30 04/24/17 21:29 Sodium Chloride 500 ml @ 30 mls/hr [id number] PRN IV 04/21/17 21:30 04/24/17 21:29 (Betadine 5% Antisepsis Kit) 1 applic ROOFING MACHINE TENDER PRN EACH NARE 04/21/17 21:30 04/24/17 21:29 (Chlorhexidine 2% Cloth) 3 pack ROOFING MACHINE TENDER PRN TOPICAL 04/21/17 21:30 04/24/17 21:29 (Lopressor Inj) 5 mg Q4HR IV PUSH 04/22/17 12:00 04/23/17 04:20 Miscellaneous Information ALL NURSING DEPARTME... UNSCH PRN .XX 04/22/17 11:36 04/23/17 11:35 (Restoril) 15 mg HS PRN PO 04/22/17 21:00 04/22/17 23:44 (Vasotec Inj) 2.5 mg Q6HR PRN IV PUSH 04/22/17 17:00 (Apresoline Inj) 10 mg Q4H PRN IV PUSH 04/22/17 17:00 04/23/17 04:41 (Ativan Inj) 1 mg Q6H PRN IV PUSH 04/22/17 18:30 Sodium Chloride 1,000 ml @ 75 mls/hr [id number] IV 04/23/17 04:45 04/23/17 05:01 Vital Signs / I&O Vital Signs Date Time Temp Pulse Resp B/P (MAP) Pulse Ox O2 Delivery O2 Flow Rate FiO2 04/23/17 06:00 96 04/23/17 05:15 108 138/65 (89) 04/23/17 05:00 103 04/23/17 04:30 101 192/102 (132) 04/23/17 04:00 97 04/23/17 04:00 99.0 96 18 186/97 (126) 99 04/23/17 03:00 111 04/23/17 02:00 96 04/23/17 01:00 102 04/23/17 00:00 110 04/22/17 23:30 98.8 111 18 162/83 (109) 98 04/22/17 23:00 98 04/22/17 22:00 110 04/22/17 21:00 100 04/22/17 20:00 108 04/22/17 20:00 98.7 108 18 154/89 (110) 97 04/22/17 19:00 98 04/22/17 18:16 100 04/22/17 18:15 149/72 (97) 04/22/17 17:42 97 21 04/22/17 17:16 90 04/22/17 17:02 178/94 (122) 04/22/17 16:32 88 04/22/17 16:22 160/85 (110) 04/22/17 16:19 204/103 (136) 04/22/17 15:35 195/105 (135) 04/22/17 15:09 98.8 93 18 179/90 (119) 97 04/22/17 15:00 86 04/22/17 14:00 92 04/22/17 13:00 86 04/22/17 12:42 98.8 89 18 176/80 (112) 94 04/22/17 12:30 83 17 162/80 (107) 97 Room Air 04/22/17 12:15 85 14 175/86 (115) 97 Room Air 04/22/17 12:00 86 13 173/82 (112) 100 Room Air 04/22/17 11:45 95 13 188/90 (122) 100 Nasal Cannula 2 04/22/17 11:36 99.1 93 19 177/86 (116) 100 Nasal Cannula 2 04/22/17 09:45 154/81 (105) 04/22/17 09:18 98.6 102 18 196/101 (132) 97 04/22/17 09:00 100 04/22/17 08:00 96 04/22/17 07:29 100 21 04/22/17 07:00 94 I/O 04/22/17 04/22/17 04/22/17 04/23/17 04/23/17 04/23/17 07:00 15:00 23:00 07:00 15:00 23:00 Intake Total 600 ml 1545 ml 870 ml Output Total 700 ml 440 ml Balance -700 ml 600 ml 1105 ml 870 ml Intake Oral 480 ml 720 ml IV Total 1065 ml 150 ml Other 600 ml Gastric Drainage Total 700 ml 200 ml Emesis 240 ml # Voids 2 3 3 # Bowel Movements 0 2 Physical Exam BP and HR high. No JVD Lung: CTA Heart Reg, S1,S2, no murmur. Ext: No C/C/E Neuro: Non-focal Laboratory Laboratory Tests Test 04/23/17 05:11 White Blood Count 18.3 TH/MM3 Red Blood Count 3.77 MIL/MM3 Hemoglobin 13.1 GM/DL Hematocrit 39.1 % Mean Corpuscular Volume 103.7 FL Mean Corpuscular Hemoglobin 34.7 PG Mean Corpuscular Hemoglobin Concent 33.5 % Red Cell Distribution Width 16.0 % Platelet Count 156 TH/MM3 Mean Platelet Volume 9.5 FL Assessment and Plan Problem List: (1) Acute GI bleeding ICD Codes: K92.2 - Gastrointestinal hemorrhage, unspecified Status: Acute (2) ASHD (arteriosclerotic heart disease) ICD Codes: I25.10 - Atherosclerotic heart disease of [place] coronary artery without angina pectoris (3) Demand ischemia of myocardium ICD Codes: I24.8 - Other forms of acute ischemic heart disease (4) Hypertension ICD Codes: I10 - Essential (primary) hypertension (5) Nausea & vomiting ICD Codes: R11.2 - Nausea with vomiting, unspecified Assessment and Plan Still on IV meds only. Adjusting meds for BP and HR control. Conservative management due to recent GI bleed and anemia. Antiplatelets and anticoagulants being held for now. Any further inpatient cardiac workup will be decided when she is taking PO meds and food again. Following with you. See orders. Gonzalez Jefferson MD Apr 23, 2017 06:50
[2017-04-23 06:52] LABS: POTASSIUM 4.3 MEQ/L (3.5-5.1)
[2017-04-23] MEDS ORDERED: POLYETHYLENE GLYCOL 17 GM PKG PO ONE (08:30)
[2017-04-23] MEDS: PANTOPRAZOLE SODIUM 40 MG VIAL IV PUSH SCH ×2 (08:34→21:19)
[2017-04-23] MEDS: SODIUM CHLORIDE 0.9% FLUSH 10 ML FLUSH IV FLUSH SCH ×2 (08:35→21:19)
[2017-04-23] MEDS ORDERED: DOCUSATE SODIUM 50 MG/SENNA 8.6 MG TAB PO SCH (09:00)
--- NOTE | 2017-04-23 09:50 | HHI.FPPN ---
Subjective Remarks No acute events overnight. BPs ranging 138s-204s/65s-105s past 24 hours. HR 96s- 100s. NGT removed yesterday after GI procedure. Patient seen and examined this morning. Patient reports her most significant source of pain remains from her chronic low back pain. She endorses bloating, but no abdominal pain. She is able to tolerate liquids. She endorses slight nausea, but no episodes of vomiting. States her last BM was Saturday. Denies fever, CP, and SOB. (Elif Cisse MD R1) Objective Vitals Vital Signs Date Time Temp Pulse Resp B/P (MAP) Pulse Ox O2 Delivery O2 Flow Rate FiO2 04/23/17 07:01 97 04/23/17 06:00 96 04/23/17 05:15 108 138/65 (89) 04/23/17 05:00 103 04/23/17 04:30 101 192/102 (132) 04/23/17 04:00 97 04/23/17 04:00 99.0 96 18 186/97 (126) 99 04/23/17 03:00 111 04/23/17 02:00 96 04/23/17 01:00 102 04/23/17 00:00 110 04/22/17 23:30 98.8 111 18 162/83 (109) 98 04/22/17 23:00 98 04/22/17 22:00 110 04/22/17 21:00 100 04/22/17 20:00 108 04/22/17 20:00 98.7 108 18 154/89 (110) 97 04/22/17 19:00 98 04/22/17 18:16 100 04/22/17 18:15 149/72 (97) 04/22/17 17:42 97 21 04/22/17 17:16 90 04/22/17 17:02 178/94 (122) 04/22/17 16:32 88 04/22/17 16:22 160/85 (110) 04/22/17 16:19 204/103 (136) 04/22/17 15:35 195/105 (135) 04/22/17 15:09 98.8 93 18 179/90 (119) 97 04/22/17 15:00 86 04/22/17 14:00 92 04/22/17 13:00 86 04/22/17 12:42 98.8 89 18 176/80 (112) 94 04/22/17 12:30 83 17 162/80 (107) 97 Room Air 04/22/17 12:15 85 14 175/86 (115) 97 Room Air 04/22/17 12:00 86 13 173/82 (112) 100 Room Air 04/22/17 11:45 95 13 188/90 (122) 100 Nasal Cannula 2 04/22/17 11:36 99.1 93 19 177/86 (116) 100 Nasal Cannula 2 I/O 04/22/17 04/22/17 04/22/17 04/23/17 04/23/17 04/23/17 07:00 15:00 23:00 07:00 15:00 23:00 Intake Total 600 ml 1545 ml 870 ml Output Total 700 ml 440 ml Balance -700 ml 600 ml 1105 ml 870 ml Intake Oral 480 ml 720 ml IV Total 1065 ml 150 ml Other 600 ml Gastric Drainage Total 700 ml 200 ml Emesis 240 ml # Voids 2 3 3 # Bowel Movements 0 2 (Elif Cisse MD R1) Result Diagram: 04/23/17 0511 04/23/17 0511 Objective Remarks GEN: lying in bed, NAD SKIN: 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 Warm and dry. HEAD: Atraumatic. Normocephalic. EYES: EOMI. No scleral icterus. No injection or drainage. ENT: Dry mucous membranes. NECK: Supple. No JVD CARDIOVASCULAR: Regular rate and rhythm without murmurs, gallops, or rubs. RESPIRATORY: Clear to auscultation. Breath sounds equal bilaterally. No wheezes , rales, or rhonchi. GASTROINTESTINAL: Abdomen soft, nontender, slight distension. No hepatosplenomegaly or palpable masses. No guarding. No rebound tenderness. MUSCULOSKELETAL: Extremities without edema. No calf tenderness. NEUROLOGICAL: Awake and alert. Cranial nerves grossly intact. Motor grossly normal. Normal speech. (Elif Cisse MD R1) A/P Assessment and Plan 86 year old woman with multiple comorbidities including CAD, RA, chronic back pain, GERD, hypothyroidism, hx of NC in 2005, admitted for diarrhea and NSTEMI r /o. Cardiology and GI consult. Plan as below. Discharge Planning Anticipated discharge possibly tomorrow after switching to PO HTN meds. Awaiting cardiology recs (Elif Cisse MD R1) Attending Attestation Patient seen and examined. Case reviewed and discussed with the resident team. Agree with plan of care as discussed with me and documented in the resident note. (Nedra Zamora MD) Problem List: (1) Hematemesis ICD Codes: K92.0 - Hematemesis Plan: 1-2 day history of multiple episodes of coffee-ground emesis. Gastroccult positive performed on 04/21 prior to gastroenterology consultation. * Hemoglobin remaining stable * NGT removed yesterday after GI procedure * EGD per gastroenterology 04/22, 3 AVMs s/p APC, return in 1 year for EGD * CT abd/pelvis ordered by GI, revealed bibasilar alveolar consolidations consistent with compressive atelectasis and/or pneumonia, small b/l pleural effusions, chronic dilatation of the intrahepatic and extrahepatic biliary system which is unchanged compared to 2010. Air-filled distended stomach, nonspecific. * Continue Protonix 40 mg IV q12h * Will transition patient to clear liquid diet, consider PO meds if patient is able to tolerate * Zofran prn N/V (2) Acute GI bleeding ICD Codes: K92.2 - Gastrointestinal hemorrhage, unspecified Status: Acute Plan: Plan as above (3) Hypertension ICD Codes: I10 - Essential (primary) hypertension Plan: Blood pressure remaining elevated, noted up to 190s/100s Consider essential hypertension with prominent component of pain contributing Continue Labetalol 10 mg IV q4h prn BP > 160/90 Discontinued Vasotec 2.5 mg IV q8h for increases in BPs Metoprolol increased to 7.5 mg IV q4h scheduled Cardiology consulted, appreciate recommendations Will likely need PO antihypertensives once taking PO and pain adequately controlled (4) Chest discomfort ICD Codes: R07.89 - Other chest pain Status: Acute Plan: Hx of previous NC in 2005. Admitted for NSTEMI r/o Cardiology consulted, appreciate recs Troponins trending 0.03, 0.13, 0.16, 0.14 EKG sinus tach, slight ST depression lead V4, nonspecific ST changes SL nitroglycerin 0.4mg q5m PRN for chest pain Hold heparin and baby aspirin due to hematemesis Continue nitro patch q6h, hold for BP < 100/[address] Jefferson, patient with pharm-stress MPI in office on 03/19/2017 revealing lateral wall ischemia, patient was asymptomatic at that time (5) Chronic back pain ICD Codes: M54.9 - Dorsalgia, unspecified; G89.29 - Other chronic pain Status: Chronic Plan: Hx of kyphoplasty in the thoracic spine. Patient complains of severe back pain, stating this is unchanged from baseline. -Discontinued Dilaudid 0.5 mg IV push q4h PRN pain 6 to 10 -Continue home med: oxycodone 5mg PO q5h PRN pain 6 to 10 (6) Rheumatoid arthritis ICD Codes: M06.9 - Rheumatoid arthritis, unspecified Plan: - Held methotrexate on admission given concern for sepsis - Patient states she takes this every Saturday - Will restart once taking PO - Continue folic acid daily once daily, hold on days receiving MTX (7) HLD (hyperlipidemia) ICD Codes: E78.5 - Hyperlipidemia, unspecified Plan: - Restart pravastatin 80 mg PO hs on taking PO (8) Essential tremor ICD Codes: G25.0 - Essential tremor Plan: - Holding home Primidone 50mg PO qid (9) Hypothyroid ICD Codes: E03.9 - Hypothyroidism, unspecified Status: Chronic Plan: -Held Levothyroxine (10) GERD (gastroesophageal reflux disease) ICD Codes: K21.9 - Gastro-esophageal reflux disease without esophagitis Status: Chronic Plan: - IV Protonix as above - Gaviscon 2 tab chew qid PRN nausea/gas (11) Diarrhea ICD Codes: R19.7 - Diarrhea, unspecified Status: Resolved Plan: Hx of recent abx use for UTI. 1-2 day hx of watery, nonbloody diarrhea. * Obtain C.diff tox PCR once patient has a BM * Lipase WNL (12) Nutrition, metabolism, and development symptoms ICD Codes: R63.8 - Other symptoms and signs concerning food and fluid intake Plan: Nutrition: clear liquids, will advance as needed Electrolytes: WNL Fluids: NS at 75 cc/hr DVT ppx: b/l SCDs, anticoagulation contraindicated due to GI bleeding GI ppx: Miralax and Pericolace 2 tabs BID (Elif Cisse MD R1) Problem Qualifiers (1) Hematemesis: Qualified Codes: K92.0 - Hematemesis Elif Cisse MD R1 Apr 23, 2017 09:50 Nedra Zamora MD Apr 23, 2017 15:46
--- NOTE | 2017-04-23 10:12 | HHI.GIFU ---
Subjective Remarks Pt in bed in NAD, napping. Cannot stay awake to speak with me other than to say she is not feeling well. Per RN no BM today and she has been very tired. (Kinza Velasquez) Objective Vitals I&O Vital Signs Date Time Temp Pulse Resp B/P (MAP) Pulse Ox O2 Delivery O2 Flow Rate FiO2 04/23/17 07:01 97 04/23/17 06:00 96 04/23/17 05:15 108 138/65 (89) 04/23/17 05:00 103 04/23/17 04:30 101 192/102 (132) 04/23/17 04:00 97 04/23/17 04:00 99.0 96 18 186/97 (126) 99 04/23/17 03:00 111 04/23/17 02:00 96 04/23/17 01:00 102 04/23/17 00:00 110 04/22/17 23:30 98.8 111 18 162/83 (109) 98 04/22/17 23:00 98 04/22/17 22:00 110 04/22/17 21:00 100 04/22/17 20:00 108 04/22/17 20:00 98.7 108 18 154/89 (110) 97 04/22/17 19:00 98 04/22/17 18:16 100 04/22/17 18:15 149/72 (97) 04/22/17 17:42 97 21 04/22/17 17:16 90 04/22/17 17:02 178/94 (122) 04/22/17 16:32 88 04/22/17 16:22 160/85 (110) 04/22/17 16:19 204/103 (136) 04/22/17 15:35 195/105 (135) 04/22/17 15:09 98.8 93 18 179/90 (119) 97 04/22/17 15:00 86 04/22/17 14:00 92 04/22/17 13:00 86 04/22/17 12:42 98.8 89 18 176/80 (112) 94 04/22/17 12:30 83 17 162/80 (107) 97 Room Air 04/22/17 12:15 85 14 175/86 (115) 97 Room Air 04/22/17 12:00 86 13 173/82 (112) 100 Room Air 04/22/17 11:45 95 13 188/90 (122) 100 Nasal Cannula 2 04/22/17 11:36 99.1 93 19 177/86 (116) 100 Nasal Cannula 2 I/O 04/22/17 04/22/17 04/22/17 04/23/17 04/23/17 04/23/17 07:00 15:00 23:00 07:00 15:00 23:00 Intake Total 600 ml 1545 ml 870 ml Output Total 700 ml 440 ml Balance -700 ml 600 ml 1105 ml 870 ml Intake Oral 480 ml 720 ml IV Total 1065 ml 150 ml Other 600 ml Gastric Drainage Total 700 ml 200 ml Emesis 240 ml # Voids 2 3 3 # Bowel Movements 0 2 Laboratory Laboratory Tests Test 04/23/17 05:11 White Blood Count 18.3 Red Blood Count 3.77 Hemoglobin 13.1 Hematocrit 39.1 Mean Corpuscular Volume 103.7 Mean Corpuscular Hemoglobin 34.7 Mean Corpuscular Hemoglobin Concent 33.5 Red Cell Distribution Width 16.0 Platelet Count 156 Mean Platelet Volume 9.5 Blood Urea Nitrogen 12 Creatinine 0.82 Random Glucose 106 Calcium Level 8.0 Sodium Level 139 Potassium Level 4.3 Chloride Level 107 Carbon Dioxide Level 23.0 Anion Gap 9 Estimat Glomerular Filtration Rate 66 Imaging Last Impressions Abdomen/Pelvis CT 04/21/17 0000 Signed Impressions: Service Date/Time: Saturday, April 22, 2017 21:24 - CONCLUSION: 1. Bibasilar alveolar consolidations consistent with compressive atelectasis and/or pneumonia. Clinical correlation is recommended. 2. Small bilateral pleural effusions. 3. Chronic dilatation of the intrahepatic and extrahepatic biliary system which is unchanged compared to April of 2011. 4. Air-filled distended stomach which is nonspecific but raises the possibility of gastric outlet obstruction. 5. Mild compression from his involving L1 and L2 of indeterminate ages. 6. Degenerative changes and scoliosis of the thoracolumbar spine. Rubens Brady MD Chest X-Ray 04/20/17 0000 Signed Impressions: Service Date/Time: Thursday, April 20, 2017 07:07 - CONCLUSION: 1. Left basilar scarring. Arturo Ruelas MD Physical Exam HEENT: PERRL; normocephalic; atraumatic; no jaundice. CHEST: CTA CARDIAC: RRR ABDOMEN: Soft, mildly distended, nontender; no hepatosplenomegaly; bowel sounds are present in all four quadrants. EXTREMITIES: No clubbing, cyanosis; mild BLE edema SKIN: bruising BUE; no rash; no jaundice. SENIOR SALES ASSISTANT: lethargic (Kinza Velasquez) Assessment and Plan Plan Assessment - Hematemesis- coffee-ground emesis- Hemoccult (+), multiple episodes Was on Heparin drip for rule out ACS, on hold. Takes 2 baby ASA at home. Denies history of PUD, NSAID use, alcohol use. S/P EGD 04/22 found class A esophagitis, 3 x AVMs s/p APC. no obvious bleeding, HH stable - Diarrhea- Started on Saturday- 6-7 episodes, denies blood in stool or black, tarry stool. Was on Ciprofloxacin for UTI Apr 07-. C. Diff pending and stool studies still pending - Chest pain- rule out ACS per attending. Heparin on hold at this time Plan - await stool studies & c diff - PPI - Monitor labs - Notify GI of any active bleeding - Transfuse as needed - supportive care Pt seen and examined by myself and Dr. Burciaga and myself and This note is written on his behalf (Kinza Velasquez) Physician Comments Seen and examined with ROME, more somnolent today. Stool studies-p. S/P egd with ablation yesterday, discussed with cardiology yesterday. Can be anticoagulated as necessary. (Jessi Burciaga MD) Kinza Velasquez Apr 23, 2017 10:12 Jessi Burciaga MD Apr 23, 2017 14:30
[2017-04-23] MEDS ORDERED: SIMETHICONE SUSP DROPS 40 MG/0.6 ML 30 ML BTL PO PRN (14:15)
[2017-04-23] MEDS: CLOPIDOGREL 75 MG TAB PO SCH (15:30)
[2017-04-23] MEDS: NITROGLYCERIN 0.2 MG/HR PATCH T-DERMAL SCH (15:30)
[2017-04-23] MEDS: DOCUSATE SODIUM 50 MG/SENNA 8.6 MG TAB PO SCH ×2 (16:00→21:00)
--- NOTE | 2017-04-23 18:18 | EKG ---
Date Performed: 04/22/2017 Time Performed: 18:10:40 PTAGE: 86 years EKG: Sinus rhythm with PVC(s) Poor R wave progression - probable normal variant Lateral ST-T changes are nonspecific W hen compared to previous tracing, there has been improvement Modest degree. Clinical corrolation will be important to assess the significant. Borderline ECG PREVIOUS TRACING : 04/21/2017 03.32.14 DOCTOR: Joan Garrett Interpretating Date/Time 04/23/2017 18:17:21
[2017-04-23] MEDS: PRAVASTATIN SOD 80 MG TAB PO SCH (21:00)
[2017-04-23] MEDS: ONDANSETRON HCL 4 MG/2 ML VIAL IV PUSH PRN (21:20)
[2017-04-23] MEDS: TEMAZEPAM 15 MG CAP PO PRN (21:56)
[2017-04-24] VITALS (29 sets, daily range): BP systolic 144–176; BP diastolic 70–89; PULSE 78–122; RESP 16–20; TEMP 97.9–98.6; O2SAT 94–99
[2017-04-24] MEDS: LORazepam 2 MG/ML VIAL IV PUSH PRN ×2 (01:10→09:12)
[2017-04-24 04:32] LABS: C. DIFF EPI 027 PRESUMPTIVE NEGATIVE (NEGATIVE)
[2017-04-24] MEDS: NITROGLYCERIN 2% OINT 1 GM PACKET TOPICAL SCH (05:00)
[2017-04-24] MEDS: ONDANSETRON HCL 4 MG/2 ML VIAL IV PUSH PRN (06:50)
[2017-04-24] MEDS: PANTOPRAZOLE SODIUM 40 MG VIAL IV PUSH SCH (08:31)
[2017-04-24] MEDS: CLOPIDOGREL 75 MG TAB PO SCH (08:31)
[2017-04-24] MEDS: PROPRANOLOL HCL LA 80 MG CAP PO SCH (08:31)
[2017-04-24] MEDS: NITROGLYCERIN 0.2 MG/HR PATCH T-DERMAL SCH (08:33)
[2017-04-24] MEDS: SODIUM CHLORIDE 0.9% FLUSH 10 ML FLUSH IV FLUSH SCH ×2 (08:34→21:26)
[2017-04-24] MEDS: DOCUSATE SODIUM 50 MG/SENNA 8.6 MG TAB PO SCH ×2 (08:34→21:00)
--- NOTE | 2017-04-24 08:56 | PD.CARD.PN ---
Subjective Subjective Remarks Weak appearing. No CP or SOB. Started back on PO meds last evening. Has had recurrent N/V overnight possibly related to narcotics for pain. BP and HR high Objective Medications Current Medications Medications (Trade) Dose Ordered Sig/Jakub Route Start Time Stop Time Status Last Admin (NS Flush) 2 ml UNSCH PRN IV FLUSH 04/20/17 10:45 (NS Flush) 2 ml BID IV FLUSH 04/20/17 10:45 04/24/17 08:34 (Tylenol) 650 mg Q4H PRN PO 04/20/17 10:45 Future Hold (Narcan Inj) 0.4 mg UNSCH PRN IV PUSH 04/20/17 10:45 (Protonix) 40 mg DAILY PO 04/20/17 11:15 Future Hold (Elavil) 50 mg HS PO 04/20/17 21:00 Future Hold (Folate) 1 mg DAILY PO 04/20/17 11:15 Future Hold (Mysoline) 50 mg QID PO 04/20/17 13:00 Future hold (Inderal La) 80 mg DAILY PO 04/20/17 11:15 Future hold 04/24/17 08:31 (Pravachol) 80 mg HS PO 04/20/17 21:00 Future hold (Catapres) 0.2 mg Q6H PRN PO 04/21/17 05:45 Future Hold (Protonix Inj) 40 mg Q12HR IV PUSH 04/21/17 09:30 04/24/17 08:31 (Zofran Inj) 4 mg Q6H PRN IV PUSH 04/21/17 17:00 04/24/17 06:50 Lactated Ringer's 1,000 ml @ 30 mls/hr Q24H PRN IV 04/21/17 21:30 04/24/17 21:29 Sodium Chloride 500 ml @ 30 mls/hr [id number] PRN IV 04/21/17 21:30 04/24/17 21:29 (Betadine 5% Antisepsis Kit) 1 applic FINANCIAL ADVISOR TRAINEE PRN EACH NARE 04/21/17 21:30 04/24/17 21:29 (Chlorhexidine 2% Cloth) 3 pack FINANCIAL ADVISOR TRAINEE PRN TOPICAL 04/21/17 21:30 04/24/17 21:29 (Restoril) 15 mg HS PRN PO 04/22/17 21:00 04/23/17 21:56 (Vasotec Inj) 2.5 mg Q6HR PRN IV PUSH 04/22/17 17:00 (Apresoline Inj) 10 mg Q4H PRN IV PUSH 04/22/17 17:00 04/23/17 04:41 (Ativan Inj) 1 mg Q6H PRN IV PUSH 04/22/17 18:30 04/24/17 01:10 Sodium Chloride 1,000 ml @ 75 mls/hr [id number] IV 04/23/17 04:45 04/23/17 18:05 (Solange-Colace) 2 tab BID PO 04/23/17 16:00 (Simethicone Liq (Drops)) 40 mg QID PRN PO 04/23/17 14:15 (Nitro-Dur 0.2 Mg Patch.24 Hr) 0.2 patch DAILY T-DERMAL 04/23/17 15:30 04/24/17 08:33 (Plavix) 75 mg DAILY PO 04/23/17 15:30 04/24/17 08:31 (Oramorph Sr) 15 mg Q8HR PO 04/24/17 09:00 (Milk Of Magnesia Liq) 30 ml DAILY PO 04/24/17 09:00 Vital Signs / I&O Vital Signs Date Time Temp Pulse Resp B/P (MAP) Pulse Ox O2 Delivery O2 Flow Rate FiO2 04/24/17 07:01 118 04/24/17 06:00 119 04/24/17 05:00 117 04/24/17 04:00 113 04/24/17 03:00 113 04/24/17 03:00 98.0 113 16 144/70 (94) 99 04/24/17 02:00 112 04/24/17 01:00 122 04/24/17 00:45 148/73 (98) 04/24/17 00:00 118 04/23/17 23:30 98.3 117 18 189/95 (126) 99 04/23/17 23:00 110 04/23/17 22:00 114 04/23/17 21:00 156/78 (104) 04/23/17 21:00 108 04/23/17 20:20 98 Nasal Cannula 2.00 04/23/17 20:00 98.5 109 18 166/84 (111) 100 04/23/17 20:00 108 04/23/17 19:00 118 04/23/17 18:01 104 04/23/17 17:00 102 04/23/17 16:01 96 04/23/17 15:15 98.0 102 18 163/86 (111) 100 04/23/17 15:00 100 04/23/17 14:00 100 04/23/17 13:01 94 04/23/17 12:00 92 04/23/17 11:15 97.9 110 18 153/83 (106) 99 04/23/17 11:00 106 04/23/17 10:00 100 04/23/17 09:00 90 I/O 04/23/17 04/23/17 04/23/17 04/24/17 04/24/17 04/24/17 07:00 15:00 23:00 07:00 15:00 23:00 Intake Total 870 ml 1292 ml Balance 870 ml 1292 ml Intake Oral 720 ml 480 ml IV Total 150 ml 812 ml # Voids 3 2 # Bowel Movements 2 2 Physical Exam BP and HR high. No JVD Lung: CTA Heart Reg, S1,S2, no murmur. Ext: No C/C/E Neuro: Non-focal Laboratory Laboratory Tests Test 04/24/17 00:52 Stool C. difficile Toxin (PCR) NEGATIVE Stl C. difficile Toxin Epiderm 027 PRESUMPTIVE NEGATIVE Assessment and Plan Problem List: (1) Acute GI bleeding ICD Codes: K92.2 - Gastrointestinal hemorrhage, unspecified Status: Acute (2) ASHD (arteriosclerotic heart disease) ICD Codes: I25.10 - Atherosclerotic heart disease of kiana coronary artery without angina pectoris (3) Demand ischemia of myocardium ICD Codes: I24.8 - Other forms of acute ischemic heart disease (4) Hypertension ICD Codes: I10 - Essential (primary) hypertension (5) Nausea & vomiting ICD Codes: R11.2 - Nausea with vomiting, unspecified Assessment and Plan Restarted on home PO meds as tolerates. Inderal LA 80 mg this AM. Extra dose of metoprolol 5 mg IV now for BP/HR control. Will avoid ASA for now due to recent GI lesions but start Plavix 75 mg daily. NTP changed over to Minitran patch. Discussed with patient, administrative staff supervisor and Dr. Cisse. Following with you. See orders. Gonzalez Jefferson MD Apr 24, 2017 08:56
[2017-04-24] MEDS ORDERED: MORPHINE SULFATE 15 MG CONTROLLED RELEASE TAB PO SCH (09:00)
[2017-04-24] MEDS: PRIMIDONE 50 MG TAB PO SCH ×4 (09:11→21:25)
[2017-04-24] MEDS: MAGNESIUM HYDROXIDE SUSP 30 ML CUP PO SCH (09:12)
[2017-04-24 09:48] LABS: BICARBONATE 22.5 MEQ/L (21.0-32.0); POTASSIUM 3.6 MEQ/L (3.5-5.1)
--- NOTE | 2017-04-24 11:22 | HHI.FPPN ---
Subjective Remarks Patient had 5-6 episodes of non-bloody vomiting overnight. Vomiting most likely due to adverse effect of restarting oxycodone for back pain per nurse. Patient reports feeling worse this morning and complains that "her stomach doesn't feel good." She denies chest pain or SOB. Abdomen still distended, but passing gas. Had 2 small BMs. She is requesting IV Dilaudid for her back pain. BP 160s/ 80s. (Elif Cisse MD R1) Objective Vitals Vital Signs Date Time Temp Pulse Resp B/P (MAP) Pulse Ox O2 Delivery O2 Flow Rate FiO2 04/24/17 08:15 97.9 115 18 176/89 (118) 97 04/24/17 07:01 118 04/24/17 06:00 119 04/24/17 05:00 117 04/24/17 04:00 113 04/24/17 03:00 113 04/24/17 03:00 98.0 113 16 144/70 (94) 99 04/24/17 02:00 112 04/24/17 01:00 122 04/24/17 00:45 148/73 (98) 04/24/17 00:00 118 04/23/17 23:30 98.3 117 18 189/95 (126) 99 04/23/17 23:00 110 04/23/17 22:00 114 04/23/17 21:00 156/78 (104) 04/23/17 21:00 108 04/23/17 20:20 98 Nasal Cannula 2.00 04/23/17 20:00 98.5 109 18 166/84 (111) 100 04/23/17 20:00 108 04/23/17 19:00 118 04/23/17 18:01 104 04/23/17 17:00 102 04/23/17 16:01 96 04/23/17 15:15 98.0 102 18 163/86 (111) 100 04/23/17 15:00 100 04/23/17 14:00 100 04/23/17 13:01 94 04/23/17 12:00 92 I/O 04/23/17 04/23/17 04/23/17 04/24/17 04/24/17 04/24/17 07:00 15:00 23:00 07:00 15:00 23:00 Intake Total 870 ml 1292 ml Balance 870 ml 1292 ml Intake Oral 720 ml 480 ml IV Total 150 ml 812 ml # Voids 3 2 # Bowel Movements 2 2 (Elif Cisse MD R1) Result Diagram: 04/23/17 0511 04/24/17 0903 Objective Remarks GEN: lying in bed, NAD SKIN: 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 Warm and dry. HEAD: Atraumatic. Normocephalic. EYES: EOMI. No scleral icterus. No injection or drainage. ENT: Dry mucous membranes. NECK: Supple. No JVD CARDIOVASCULAR: Regular rate and rhythm without murmurs, gallops, or rubs. RESPIRATORY: Clear to auscultation. Breath sounds equal bilaterally. No wheezes , rales, or rhonchi. GASTROINTESTINAL: Abdomen soft, nontender, mild to moderate distention. No hepatosplenomegaly or palpable masses. No guarding. No rebound tenderness. MUSCULOSKELETAL: Extremities without edema. No calf tenderness. NEUROLOGICAL: Awake and alert. Cranial nerves grossly intact. Motor grossly normal. Normal speech. (Elif Cisse MD R1) A/P Assessment and Plan 86 year old woman with multiple comorbidities including CAD, RA, chronic back pain, GERD, hypothyroidism, hx of PA in 2005, admitted for diarrhea and NSTEMI r /o. Cardiology and GI consult. Plan as below. Discharge Planning Anticipate discharge to Rehab center (Elif Cisse MD R1) Attending Attestation Patient seen and examined. Case reviewed and discussed with the resident team. Agree with plan of care as discussed with me and documented in the resident note. (Nedra Zamora MD) Problem List: (1) Hematemesis ICD Codes: K92.0 - Hematemesis Plan: 1-2 day history of multiple episodes of coffee-ground emesis. Gastroccult positive performed on 04/21 prior to gastroenterology consultation. 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 Air-filled distended stomach, nonspecific. * Continue Protonix 40 mg PO * Zofran prn N/V (2) Acute GI bleeding ICD Codes: K92.2 - Gastrointestinal hemorrhage, unspecified Status: Acute Plan: Plan as above (3) Hypertension ICD Codes: I10 - Essential (primary) hypertension Plan: Blood pressure remaining elevated, noted up to 170s/90s Consider essential hypertension with prominent component of pain contributing Continue Labetalol 10 mg IV q4h prn BP > 160/90 Cardiology consulted, recommendations appreciated Discontinued Metoprolol 7.5 mg IV q4h Restart home Propranolol (Inderal LA) 120mg daily Will avoid ASA for now due to recent GI lesion but start Plavix 75mg daily Minitran patch (4) Chest discomfort ICD Codes: R07.89 - Other chest pain Status: Acute Plan: Hx of previous PA in 2005. Admitted for NSTEMI r/o Cardiology consulted, recommendations appreciated Troponins trending 0.03, 0.13, 0.16, 0.14 EKG sinus tach, slight ST depression lead V4, nonspecific ST changes SL nitroglycerin 0.4mg q5m PRN for chest pain Hold heparin and baby aspirin due to hematemesis Continue nitro patch q6h, hold for BP < 100/[address] Jefferson, patient with pharm-stress MPI in office on 03/19/2017 revealing lateral wall ischemia, patient was asymptomatic at that time (5) Chronic back pain ICD Codes: M54.9 - Dorsalgia, unspecified; G89.29 - Other chronic pain Status: Chronic Plan: Hx of kyphoplasty in the thoracic spine. Patient complains of severe back pain, stating this is unchanged from baseline. -Discontinued home oxycodone due to vomiting -Start 2mg PO q6h Dilaudid pain 6-10 PRN (6) Rheumatoid arthritis ICD Codes: M06.9 - Rheumatoid arthritis, unspecified Plan: - Held methotrexate on admission given concern for sepsis - Patient states she takes this every Saturday - Will restart once taking PO - Continue folic acid daily once daily, hold on days receiving MTX (7) HLD (hyperlipidemia) ICD Codes: E78.5 - Hyperlipidemia, unspecified Plan: - Restart pravastatin 80 mg PO hs on taking PO (8) Essential tremor ICD Codes: G25.0 - Essential tremor Plan: - restarted Primidone 50mg PO qid (9) Hypothyroid ICD Codes: E03.9 - Hypothyroidism, unspecified Status: Chronic Plan: -Held Levothyroxine (10) GERD (gastroesophageal reflux disease) ICD Codes: K21.9 - Gastro-esophageal reflux disease without esophagitis Status: Chronic Plan: Protonix 40mg daily PO (11) Diarrhea ICD Codes: R19.7 - Diarrhea, unspecified Status: Resolved Plan: Hx of recent abx use for UTI. 1-2 day hx of watery, nonbloody diarrhea. * C.diff stool negative * Lipase WNL (12) Nutrition, metabolism, and development symptoms ICD Codes: R63.8 - Other symptoms and signs concerning food and fluid intake Plan: Nutrition: clear liquids, will advance as tolerated Electrolytes: WNL Fluids: NS at 75 cc/hr DVT ppx: b/l SCDs, anticoagulation contraindicated due to GI bleeding GI ppx: Miralax and Pericolace 2 tabs BID (Elif Cisse MD R1) Problem Qualifiers (1) Hematemesis: Qualified Codes: K92.0 - Hematemesis Elif Cisse MD R1 Apr 24, 2017 11:22 Nedra Zamora MD Apr 25, 2017 08:13
[2017-04-24] MEDS ORDERED: PILL SPLITTER OTHER PRN (13:00)
[2017-04-24 14:21] LABS: BASOPHIL % 0.1 % (0.0-2.0); EOSINOPHIL % 0.1 % (0.0-4.0); HEMATOCRIT 36.1 % (35.0-46.0); HEMO FLAGS DIFF FINAL; LYMPH % 11.2 % (9.0-44.0); LYMPHOCYTE # 1.1 TH/MM3 (1.0-4.8); MEAN CELL VOLUME 101.7 FL (80.0-100.0); MEAN CORPUSCULAR HEMOGLOBIN 34.6 PG (27.0-34.0); NEUT % 80.6 % (16.0-70.0); PLATELET COUNT 159 TH/MM3 (150-450); RED BLOOD COUNT 3.55 MIL/MM3 (4.00-5.30); RED CELL DISTRIBUTION WIDTH 15.9 % (11.6-17.2); WHITE BLOOD COUNT 9.9 TH/MM3 (4.0-11.0)
[2017-04-24] MEDS: HYDROmorphone HCL 2 MG TAB PO PRN ×2 (18:21→21:34)
[2017-04-24] MEDS: PRAVASTATIN SOD 80 MG TAB PO SCH (21:25)
[2017-04-25] VITALS (30 sets, daily range): BP systolic 115–173; BP diastolic 56–88; PULSE 75–94; RESP 18–20; TEMP 97.8–98.6; O2SAT 92–99
[2017-04-25] MEDS: HYDROmorphone HCL 2 MG TAB PO PRN ×3 (03:48→23:43)
[2017-04-25] MEDS: LORazepam 0.5 MG TAB PO PRN ×3 (03:59→23:43)
--- NOTE | 2017-04-25 07:42 | PD.CARD.PN ---
Subjective Subjective Remarks Weak appearing. No CP or SOB. Started back on PO meds last evening. Has had recurrent N/V and has NGT back in place today.. BP and HR improving. Objective Medications Current Medications Medications (Trade) Dose Ordered Sig/Jakub Route Start Time Stop Time Status Last Admin (NS Flush) 2 ml UNSCH PRN IV FLUSH 04/20/17 10:45 (NS Flush) 2 ml BID IV FLUSH 04/20/17 10:45 04/24/17 21:26 (Tylenol) 650 mg Q4H PRN PO 04/20/17 10:45 Future Hold (Narcan Inj) 0.4 mg UNSCH PRN IV PUSH 04/20/17 10:45 (Protonix) 40 mg DAILY PO 04/20/17 11:15 Future hold (Elavil) 50 mg HS PO 04/20/17 21:00 Future Hold (Folate) 1 mg DAILY PO 04/20/17 11:15 Future Hold (Mysoline) 50 mg QID PO 04/20/17 13:00 Future hold 04/24/17 21:25 (Pravachol) 80 mg HS PO 04/20/17 21:00 Future hold 04/24/17 21:25 (Catapres) 0.2 mg Q6H PRN PO 04/21/17 05:45 Future Hold (Zofran Inj) 4 mg Q6H PRN IV PUSH 04/21/17 17:00 04/24/17 06:50 (Vasotec Inj) 2.5 mg Q6HR PRN IV PUSH 04/22/17 17:00 (Apresoline Inj) 10 mg Q4H PRN IV PUSH 04/22/17 17:00 04/23/17 04:41 Sodium Chloride 1,000 ml @ 75 mls/hr [id number] IV 04/23/17 04:45 04/23/17 18:05 (Solange-Colace) 2 tab BID PO 04/23/17 16:00 (Simethicone Liq (Drops)) 40 mg QID PRN PO 04/23/17 14:15 (Nitro-Dur 0.2 Mg Patch.24 Hr) 0.2 patch DAILY T-DERMAL 04/23/17 15:30 04/24/17 08:33 (Plavix) 75 mg DAILY PO 04/23/17 15:30 04/24/17 08:31 (Milk Of Magnesia Liq) 30 ml DAILY PO 04/24/17 09:00 04/24/17 09:12 (Ativan) 0.25 mg Q12HR PRN PO 04/24/17 21:00 04/25/17 03:59 (Pill Splitter) 1 ea UNSCH PRN OTHER 04/24/17 13:00 (Dilaudid) 2 mg Q6H PRN PO 04/24/17 18:15 04/25/17 03:48 (Inderal La) 120 mg DAILY PO 04/25/17 09:00 Vital Signs / I&O Vital Signs Date Time Temp Pulse Resp B/P (MAP) Pulse Ox O2 Delivery O2 Flow Rate FiO2 04/25/17 05:53 94 04/25/17 05:00 86 04/25/17 04:48 20 04/25/17 04:00 88 04/25/17 04:00 Nasal Cannula 2.00 04/25/17 04:00 98.6 86 20 157/80 (105) 97 04/25/17 03:00 82 04/25/17 02:00 84 04/25/17 01:00 84 04/25/17 00:00 98.6 88 20 140/75 (96) 95 04/25/17 00:00 Nasal Cannula 2.00 04/25/17 00:00 84 04/24/17 23:00 86 04/24/17 22:28 Nasal Cannula 2.00 04/24/17 22:00 86 04/24/17 21:00 82 04/24/17 20:00 82 04/24/17 20:00 98.6 90 20 151/80 (103) 99 04/24/17 20:00 Room Air 04/24/17 19:00 86 04/24/17 18:00 96 04/24/17 17:00 82 04/24/17 16:01 98.4 93 18 164/84 (110) 99 04/24/17 16:00 78 04/24/17 15:00 92 04/24/17 14:00 106 04/24/17 13:00 98 04/24/17 12:00 96 04/24/17 11:15 98.1 92 18 146/78 (100) 98 04/24/17 11:00 90 04/24/17 10:00 108 04/24/17 09:00 112 04/24/17 08:30 94 Nasal Cannula 2.00 04/24/17 08:15 97.9 115 18 176/89 (118) 97 04/24/17 08:00 112 I/O 04/24/17 04/24/17 04/24/17 04/25/17 04/25/17 04/25/17 07:00 15:00 23:00 07:00 15:00 23:00 Intake Total 1292 ml 720 ml 600 ml Output Total 0 ml Balance 1292 ml 720 ml 600 ml Intake Oral 480 ml 720 ml 600 ml IV Total 812 ml Gastric Drainage Total 0 ml # Voids 2 2 2 # Bowel Movements 2 0 Physical Exam VSS. No JVD Lung: CTA Heart Reg, S1,S2, no murmur. Ext: No C/C/E Neuro: Non-focal Laboratory Laboratory Tests Test 04/24/17 09:03 04/24/17 11:35 Blood Urea Nitrogen 11 MG/DL Creatinine 0.68 MG/DL Random Glucose 113 MG/DL Calcium Level 7.6 MG/DL Sodium Level 141 MEQ/L Potassium Level 3.6 MEQ/L Chloride Level 107 MEQ/L Carbon Dioxide Level 22.5 MEQ/L Anion Gap 12 MEQ/L Estimat Glomerular Filtration Rate 82 ML/MIN White Blood Count 9.9 TH/MM3 Red Blood Count 3.55 MIL/MM3 Hemoglobin 12.3 GM/DL Hematocrit 36.1 % Mean Corpuscular Volume 101.7 FL Mean Corpuscular Hemoglobin 34.6 PG Mean Corpuscular Hemoglobin Concent 34.0 % Red Cell Distribution Width 15.9 % Platelet Count 159 TH/MM3 Mean Platelet Volume 8.2 FL Neutrophils (%) (Auto) 80.6 % Lymphocytes (%) (Auto) 11.2 % Monocytes (%) (Auto) 8.0 % Eosinophils (%) (Auto) 0.1 % Basophils (%) (Auto) 0.1 % Neutrophils # (Auto) 8.0 TH/MM3 Lymphocytes # (Auto) 1.1 TH/MM3 Monocytes # (Auto) 0.8 TH/MM3 Eosinophils # (Auto) 0.0 TH/MM3 Basophils # (Auto) 0.0 TH/MM3 CBC Comment DIFF FINAL Differential Comment Assessment and Plan Problem List: (1) Acute GI bleeding ICD Codes: K92.2 - Gastrointestinal hemorrhage, unspecified Status: Acute (2) ASHD (arteriosclerotic heart disease) ICD Codes: I25.10 - Atherosclerotic heart disease of [place] coronary artery without angina pectoris (3) Demand ischemia of myocardium ICD Codes: I24.8 - Other forms of acute ischemic heart disease (4) Hypertension ICD Codes: I10 - Essential (primary) hypertension (5) Nausea & vomiting ICD Codes: R11.2 - Nausea with vomiting, unspecified Assessment and Plan Restarted on home PO meds. Increase Inderal LA 120 mg this AM. Add JERSEY inhibitor if BP still tanisha tomorrow. Will avoid ASA for now due to recent Gastric lesions but start Plavix 75 mg daily. NTP changed over to Minitran patch. Plan is to continue conservative management if possible. If she has evidence of recurrent myocardial ischemia despite maximal medical therapy will consider cardiac cath. Discussed with patient, staff readiness officer and Dr. Cisse. Dr. Hicks will be covering me tomorrow. Please call if needed. See orders. Gonzalez Jefferson MD Apr 25, 2017 07:42
[2017-04-25] MEDS: PROPRANOLOL HCL LA 120 MG CAP PO SCH (09:00)
[2017-04-25] MEDS: DOCUSATE SODIUM 50 MG/SENNA 8.6 MG TAB PO SCH ×2 (09:00→20:18)
[2017-04-25] MEDS: CLOPIDOGREL 75 MG TAB PO SCH (09:00)
[2017-04-25] MEDS: MAGNESIUM HYDROXIDE SUSP 30 ML CUP PO SCH (09:00)
[2017-04-25] MEDS: PRIMIDONE 50 MG TAB PO SCH ×4 (09:01→20:17)
[2017-04-25] MEDS: NITROGLYCERIN 0.2 MG/HR PATCH T-DERMAL SCH (09:02)
[2017-04-25] MEDS: SODIUM CHLOR 0.9% 1000 ML INJ 1,000 ML IV SCH (09:04)
[2017-04-25] MEDS: SODIUM CHLORIDE 0.9% FLUSH 10 ML FLUSH IV FLUSH SCH ×2 (09:04→20:32)
[2017-04-25] MEDS: PANTOPRAZOLE SOD 40 MG DELAYED RELEASE TAB PO SCH (09:10)
[2017-04-25] MEDS ORDERED: PROP120 PO (11:02)
--- NOTE | 2017-04-25 11:03 | HHI.DCPOC ---
Discharge Care Plan Diagnosis: (1) Acute GI bleeding (2) Chronic back pain (3) Hypertension Goals to Promote Your Health * To prevent worsening of your condition and complications * To maintain your health at the optimal level Directions to Meet Your Goals Take your medications as prescribed Follow your dietary instruction Follow activity as directed Keep your appointments as scheduled Take your immunizations and boosters as scheduled If your symptoms worsen call your PCP, if no PCP go to Urgent Care Center or Emergency Room Smoking is Dangerous to Your Health. Avoid second hand smoke Call the 24-hour hour crisis hotline for domestic abuse at Elif Cisse MD R1 Apr 25, 2017 11:03
[2017-04-25] MEDS ORDERED: PLAV75TA29 PO (11:04)
[2017-04-25] MEDS ORDERED: DILA2TAB4 PO (11:08)
[2017-04-25] MEDS ORDERED: PERI PO (11:20)
[2017-04-25] MEDS ORDERED: MAGN30S PO (11:20)
[2017-04-25] MEDS ORDERED: PANT40TA3 PO (11:20)
--- NOTE | 2017-04-25 11:27 | HHI.FPPN ---
Subjective Remarks No acute events overnight.Patient requested to have NG tube with low intermittent suction. Nurse reports that no fluid was suctioned from the tube. Niece at bedside this AM. Patient reports some bloating this morning. Reports that her chronic back pain is better, /10. On 2L NC. No BM, but passing gas. She is tolerating food well. She denies vomiting, CP, and SOB. She is glad that she will be going to rehab upon discharge. (Elif Cisse MD R1) Objective Vitals Vital Signs Date Time Temp Pulse Resp B/P (MAP) Pulse Ox O2 Delivery O2 Flow Rate FiO2 04/25/17 09:09 97 Nasal Cannula 2.00 04/25/17 05:53 94 04/25/17 05:00 86 04/25/17 04:48 20 04/25/17 04:00 88 04/25/17 04:00 Nasal Cannula 2.00 04/25/17 04:00 98.6 86 20 157/80 (105) 97 04/25/17 03:00 82 04/25/17 02:00 84 04/25/17 01:00 84 04/25/17 00:00 98.6 88 20 140/75 (96) 95 04/25/17 00:00 Nasal Cannula 2.00 04/25/17 00:00 84 04/24/17 23:00 86 04/24/17 22:28 Nasal Cannula 2.00 04/24/17 22:00 86 04/24/17 21:00 82 04/24/17 20:00 82 04/24/17 20:00 98.6 90 20 151/80 (103) 99 04/24/17 20:00 Room Air 04/24/17 19:00 86 04/24/17 18:00 96 04/24/17 17:00 82 04/24/17 16:01 98.4 93 18 164/84 (110) 99 04/24/17 16:00 78 04/24/17 15:00 92 04/24/17 14:00 106 04/24/17 13:00 98 04/24/17 12:00 96 I/O 04/24/17 04/24/17 04/24/17 04/25/17 04/25/17 04/25/17 07:00 15:00 23:00 07:00 15:00 23:00 Intake Total 1292 ml 720 ml 600 ml Output Total 0 ml Balance 1292 ml 720 ml 600 ml Intake Oral 480 ml 720 ml 600 ml IV Total 812 ml Gastric Drainage Total 0 ml # Voids 2 2 2 # Bowel Movements 2 0 (Elif Cisse MD R1) Result Diagram: 04/24/17 1135 04/24/17 0903 Objective Remarks GEN: lying in bed, NAD, pleasant this AM SKIN: 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 Warm and dry. HEAD: Atraumatic. Normocephalic. EYES: EOMI. No scleral icterus. No injection or drainage. ENT: Dry mucous membranes. NECK: Supple. No JVD CARDIOVASCULAR: Regular rate and rhythm without murmurs, gallops, or rubs. RESPIRATORY: Clear to auscultation. Breath sounds equal bilaterally. No wheezes , rales, or rhonchi. GASTROINTESTINAL: Abdomen soft, nontender, mild to moderate distention. No hepatosplenomegaly or palpable masses. No guarding. No rebound tenderness. MUSCULOSKELETAL: Extremities without edema. No calf tenderness. NEUROLOGICAL: Awake and alert. Oriented x3. (Elif Cisse MD R1) A/P Assessment and Plan 86 year old woman with multiple comorbidities including CAD, RA, chronic back pain, GERD, hypothyroidism, hx of [place] in 2005, admitted for diarrhea and NSTEMI r /o. Cardiology and GI consult. Plan as below. Discharge Planning Anticipate discharge to Rehab center today (Elif Cisse MD R1) Attending Attestation Patient seen and examined. Case reviewed and discussed with the resident team. Agree with plan of care as discussed with me and documented in the resident note. (Nedra Zamora MD) Problem List: (1) Hematemesis ICD Codes: K92.0 - Hematemesis Plan: 1-2 day history of multiple episodes of coffee-ground emesis. Gastroccult positive performed on 04/21 prior to gastroenterology consultation. * Hemoglobin remaining stable * NGT placed yesterday evening per patient's request. No fluid collected. NGT removed upon discharge. 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 Air-filled distended stomach, nonspecific. * Continue Protonix 40 mg PO * Zofran prn N/V (2) Acute GI bleeding ICD Codes: K92.2 - Gastrointestinal hemorrhage, unspecified Status: Acute Plan: Plan as above (3) Hypertension ICD Codes: I10 - Essential (primary) hypertension Plan: Blood pressure ranging 140-176/ 78-89 over past 24hrs Consider essential hypertension with prominent component of pain contributing Continue Labetalol 10 mg IV q4h prn BP > 160/90 Cardiology consulted, appreciated recommendations Continue Propranolol (Inderal LA) 120mg daily Will avoid ASA for now due to recent GI lesion but start Plavix 75mg daily Minitran patch (4) Chest discomfort ICD Codes: R07.89 - Other chest pain Status: Acute Plan: Hx of previous [place] in 2005. Admitted for NSTEMI r/o Cardiology consulted, recommendations appreciated Troponins trending 0.03, 0.13, 0.16, 0.14 EKG sinus tach, slight ST depression lead V4, nonspecific ST changes SL nitroglycerin 0.4mg q5m PRN for chest pain Hold heparin and baby aspirin due to hematemesis Continue nitro patch q6h, hold for BP < 100/[address] Jefferson, patient with pharm-stress MPI in office on 03/19/2017 revealing lateral wall ischemia, patient was asymptomatic at that time (5) Chronic back pain ICD Codes: M54.9 - Dorsalgia, unspecified; G89.29 - Other chronic pain Status: Chronic Plan: Hx of kyphoplasty in the thoracic spine. Patient complains of severe back pain, stating this is unchanged from baseline. -Discontinued home oxycodone due to vomiting -Continue 2mg PO q6h Dilaudid pain 6-10 PRN (6) Rheumatoid arthritis ICD Codes: M06.9 - Rheumatoid arthritis, unspecified Plan: - Held methotrexate on admission given concern for sepsis - Patient states she takes this every Saturday - Continue folic acid daily once daily, hold on days receiving MTX (7) HLD (hyperlipidemia) ICD Codes: E78.5 - Hyperlipidemia, unspecified Plan: - Restart pravastatin 80 mg PO hs on taking PO (8) Essential tremor ICD Codes: G25.0 - Essential tremor Plan: - restarted Primidone 50mg PO qid (9) Hypothyroid ICD Codes: E03.9 - Hypothyroidism, unspecified Status: Chronic Plan: -Held Levothyroxine (10) GERD (gastroesophageal reflux disease) ICD Codes: K21.9 - Gastro-esophageal reflux disease without esophagitis Status: Chronic Plan: Protonix 40mg daily PO (11) Diarrhea ICD Codes: R19.7 - Diarrhea, unspecified Status: Resolved Plan: Hx of recent abx use for UTI. 1-2 day hx of watery, nonbloody diarrhea. * C.diff stool negative * Lipase WNL (12) Nutrition, metabolism, and development symptoms ICD Codes: R63.8 - Other symptoms and signs concerning food and fluid intake Plan: Nutrition: clear liquids, will advance as tolerated Electrolytes: WNL Fluids: NS at 75 cc/hr DVT ppx: b/l SCDs, anticoagulation contraindicated due to GI bleeding GI ppx: Miralax and Pericolace 2 tabs BID (Elif Cisse MD R1) Problem Qualifiers (1) Hematemesis: Qualified Codes: K92.0 - Hematemesis Elif Cisse MD R1 Apr 25, 2017 11:27 Nedra Zamora MD Apr 25, 2017 14:34
--- NOTE | 2017-04-25 11:27 | HHI.DS ---
Discharge Summary Admission Date Apr 20, 2017 at 11:06 Admitting Diagnosis chest pain/diarrhea (1) Hematemesis Plan: 1-2 day history of multiple episodes of coffee-ground emesis. Gastroccult positive performed on 04/21 prior to gastroenterology consultation. 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 Air-filled distended stomach, nonspecific. * Continue Protonix 40 mg PO * Zofran prn N/V ICD Codes: K92.0 - Hematemesis (2) Acute GI bleeding Plan: Plan as above ICD Codes: K92.2 - Gastrointestinal hemorrhage, unspecified Status: Acute (3) Hypertension Plan: Blood pressure remaining elevated, noted up to 170s/90s Consider essential hypertension with prominent component of pain contributing Continue Labetalol 10 mg IV q4h prn BP > 160/90 Cardiology consulted, recommendations appreciated Discontinued Metoprolol 7.5 mg IV q4h Restart home Propranolol (Inderal LA) 120mg daily Will avoid ASA for now due to recent GI lesion but start Plavix 75mg daily Minitran patch ICD Codes: I10 - Essential (primary) hypertension (4) Chest discomfort Plan: Hx of previous [place] in 2005. Admitted for NSTEMI r/o Cardiology consulted, recommendations appreciated Troponins trending 0.03, 0.13, 0.16, 0.14 EKG sinus tach, slight ST depression lead V4, nonspecific ST changes SL nitroglycerin 0.4mg q5m PRN for chest pain Hold heparin and baby aspirin due to hematemesis Continue nitro patch q6h, hold for BP < 100/[address] Jefferson, patient with pharm-stress MPI in office on 03/19/2017 revealing lateral wall ischemia, patient was asymptomatic at that time ICD Codes: R07.89 - Other chest pain Status: Acute (5) Chronic back pain Plan: Hx of kyphoplasty in the thoracic spine. Patient complains of severe back pain, stating this is unchanged from baseline. -Discontinued home oxycodone due to vomiting -Start 2mg PO q6h Dilaudid pain 6-10 PRN ICD Codes: M54.9 - Dorsalgia, unspecified; G89.29 - Other chronic pain Status: Chronic (6) Rheumatoid arthritis Plan: - Held methotrexate on admission given concern for sepsis - Patient states she takes this every Saturday - Will restart once taking PO - Continue folic acid daily once daily, hold on days receiving MTX ICD Codes: M06.9 - Rheumatoid arthritis, unspecified (7) HLD (hyperlipidemia) Plan: - Restart pravastatin 80 mg PO hs on taking PO ICD Codes: E78.5 - Hyperlipidemia, unspecified (8) Essential tremor Plan: - restarted Primidone 50mg PO qid ICD Codes: G25.0 - Essential tremor (9) Hypothyroid Plan: -Held Levothyroxine ICD Codes: E03.9 - Hypothyroidism, unspecified Status: Chronic (10) GERD (gastroesophageal reflux disease) Plan: Protonix 40mg daily PO ICD Codes: K21.9 - Gastro-esophageal reflux disease without esophagitis Status: Chronic (11) Diarrhea Plan: Hx of recent abx use for UTI. 1-2 day hx of watery, nonbloody diarrhea. * C.diff stool negative * Lipase WNL ICD Codes: R19.7 - Diarrhea, unspecified Status: Resolved (12) Nutrition, metabolism, and development symptoms Plan: Nutrition: clear liquids, will advance as tolerated Electrolytes: WNL Fluids: NS at 75 cc/hr DVT ppx: b/l SCDs, anticoagulation contraindicated due to GI bleeding GI ppx: Miralax and Pericolace 2 tabs BID ICD Codes: R63.8 - Other symptoms and signs concerning food and fluid intake Brief History 86 yr old F with multiple comorbidities (CAD, RA chronic back pain, GERD, hypothyroidism), hx of [place] in 2005, presents to the ED for chest pain and diarrhea. Patient reports having left-sided chest pressure early this morning at 2am. She described it as "someone stepping on my chest." She said it was constant. She states that it does not radiate to her jaw, left arm or shoulder. She took two sublingual nitroglycerin tablets while waiting for the ambulance to arrive, but it did not alleviate the pain. She wears a nitroglycerin path daily. She endorses associated SOB and nausea. The chest pain is not worse with breathing. She also state that she had diarrhea that started around yesterday morning. She had about 6-7 watery, nonbloody BM. She states that her last BM was at 8:00pm last night and hasn't had diarrhea since then. She recently completed a course of ciprofloxacin for a recent UTI diagnosed on . She denies dysuria BACA, vision changes, abdominal pain, and vomiting. Patient appears very uncomfortable and is complaining of severe back pain. She has taken Tylenol in the past w/o much relief. Her recently saw her PCP on Saturday and she was prescribed oxycodone for her back pain but has had no relief. PCP is Dr. Memo Barker Loan Inspector, Dr. Shasha Jefferson CBC/BMP: 04/24/17 1135 04/24/17 0903 Significant Findings Laboratory Tests Test 04/23/17 05:11 04/24/17 00:52 04/24/17 09:03 04/24/17 11:35 White Blood Count 18.3 TH/MM3 (4.0-11.0) Red Blood Count 3.77 MIL/MM3 (4.00-5.30) 3.55 MIL/MM3 (4.00-5.30) Mean Corpuscular Volume 103.7 FL (80.0-100.0) 101.7 FL (80.0-100.0) Mean Corpuscular Hemoglobin 34.7 PG (27.0-34.0) 34.6 PG (27.0-34.0) Calcium Level 8.0 MG/DL (8.5-10.1) 7.6 MG/DL (8.5-10.1) Estimat Glomerular Filtration Rate 66 ML/MIN (>89) 82 ML/MIN (>89) Random Glucose 113 MG/DL (74-106) Neutrophils (%) (Auto) 80.6 % (16.0-70.0) Neutrophils # (Auto) 8.0 TH/MM3 (1.8-7.7) PE at Discharge GEN: lying in bed, NAD SKIN: 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 Warm and dry. HEAD: Atraumatic. Normocephalic. EYES: EOMI. No scleral icterus. No injection or drainage. ENT: Dry mucous membranes. NECK: Supple. No JVD CARDIOVASCULAR: Regular rate and rhythm without murmurs, gallops, or rubs. RESPIRATORY: Clear to auscultation. Breath sounds equal bilaterally. No wheezes , rales, or rhonchi. GASTROINTESTINAL: Abdomen soft, nontender, mild to moderate distention. No hepatosplenomegaly or palpable masses. No guarding. No rebound tenderness. MUSCULOSKELETAL: Extremities without edema. No calf tenderness. NEUROLOGICAL: Awake and alert. Cranial nerves grossly intact. Motor grossly normal. Normal speech. Pt Condition on Discharge: Stable Discharge Disposition: Discharge to SNF Discharge Instructions DIET: Follow Instructions for: Heart Healthy Diet Activities you can perform: Weight Bearing as Elif Alarcon MD R1 Apr 25, 2017 11:27
[2017-04-25] MEDS ORDERED: LABETALOL HCL 100 MG/20 ML VIAL IV PUSH PRN (20:15)
[2017-04-25] MEDS ORDERED: ONDANSETRON ODT 4 MG TAB PO PRN (20:15)
[2017-04-25] MEDS: PRAVASTATIN SOD 80 MG TAB PO SCH (20:17)
[2017-04-25 21:03] LABS: AUTOMATED NEUTROPHIL # 8.4 TH/MM3 (1.8-7.7); BASOPHIL % 0.2 % (0.0-2.0); EOSINOPHIL # 0.1 TH/MM3 (0-0.4); EOSINOPHIL % 0.9 % (0.0-4.0); HEMATOCRIT 37.1 % (35.0-46.0); HEMO FLAGS DIFF FINAL; LYMPH % 10.6 % (9.0-44.0); LYMPHOCYTE # 1.1 TH/MM3 (1.0-4.8); MEAN CELL VOLUME 101.7 FL (80.0-100.0); MEAN CORPUSCULAR HEMOGLOBIN 33.4 PG (27.0-34.0); MEAN CORPUSCULAR HGB CONC 32.9 % (32.0-36.0); NEUT % 80.3 % (16.0-70.0); PLATELET COUNT 172 TH/MM3 (150-450); RED BLOOD COUNT 3.64 MIL/MM3 (4.00-5.30); RED CELL DISTRIBUTION WIDTH 15.5 % (11.6-17.2); WHITE BLOOD COUNT 10.5 TH/MM3 (4.0-11.0)
[2017-04-25] MEDS: ONDANSETRON HCL 4 MG/2 ML VIAL IV PUSH PRN (21:36)
[2017-04-26] VITALS (11 sets, daily range): BP systolic 139–158; BP diastolic 84–95; PULSE 80–87; RESP 16–18; TEMP 98.6–99.4; O2SAT 93–94
[2017-04-26] MEDS: LORazepam 0.5 MG TAB PO PRN ×2 (05:18→10:41)
[2017-04-26] MEDS: HYDROmorphone HCL 2 MG TAB PO PRN ×3 (05:18→15:55)
--- NOTE | 2017-04-26 08:53 | HHI.FPPN ---
Subjective Remarks No acute events overnight. Afebrile, vital stable. Patient seen and examined this morning. Patient denies any significant abdominal pain or discomfort. She states the abdominal discomfort she was having yesterday afternoon has resolved. She states her last bowel movement was sometime yesterday afternoon. Denies chest pain or pressure. No fevers or shortness of breath. She states she is tolerating her diet without nausea or vomiting now. She states her chronic pain overall is tolerable with her current PO regimen, however she asks whether she could receive IV pain medications. (Levon Goldberg MD R2) Objective Vitals Vital Signs Date Time Temp Pulse Resp B/P (MAP) Pulse Ox O2 Delivery O2 Flow Rate FiO2 04/26/17 07:20 99.1 82 16 154/92 (112) 93 04/26/17 07:20 82 04/26/17 07:20 93 Room Air 04/26/17 06:00 81 04/26/17 05:00 85 04/26/17 04:00 84 04/26/17 03:26 98.6 83 18 139/84 (102) 94 04/26/17 03:00 83 04/26/17 02:00 80 04/26/17 01:00 82 04/26/17 00:00 82 04/25/17 23:46 98.3 81 18 115/56 (75) 92 04/25/17 23:00 75 04/25/17 22:00 80 04/25/17 21:00 84 04/25/17 20:53 93 04/25/17 20:00 78 04/25/17 19:23 98.2 82 18 173/84 (113) 94 04/25/17 19:23 94 Room Air 04/25/17 19:00 77 04/25/17 18:00 78 04/25/17 17:04 80 04/25/17 16:00 80 04/25/17 15:30 98.2 87 20 152/80 (104) 93 04/25/17 15:00 82 04/25/17 15:00 88 04/25/17 14:00 80 04/25/17 13:00 82 04/25/17 12:00 86 04/25/17 11:00 88 04/25/17 11:00 97.8 90 19 156/87 (110) 99 04/25/17 10:00 86 04/25/17 09:09 97 Nasal Cannula 2.00 04/25/17 09:00 88 I/O 04/25/17 04/25/17 04/25/17 04/26/17 04/26/17 04/26/17 07:00 15:00 23:00 07:00 15:00 23:00 Intake Total 600 ml 230 ml 290 ml 400 ml Output Total 0 ml Balance 600 ml 230 ml 290 ml 400 ml Intake Oral 600 ml 290 ml 400 ml IV Total 230 ml Gastric Drainage Total 0 ml # Voids 2 3 2 # Bowel Movements 4 2 (Levon Goldberg MD R2) Result Diagram: 04/25/17204304/24/17 0903 Objective Remarks GEN: lying in bed, NAD, pleasant this AM SKIN: 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 Warm and dry. HEAD: Atraumatic. Normocephalic. EYES: EOMI. No scleral icterus. No injection or drainage. ENT: Dry mucous membranes. NECK: Supple. No JVD CARDIOVASCULAR: Regular rate and rhythm without murmurs, gallops, or rubs. RESPIRATORY: Clear to auscultation. Breath sounds equal bilaterally. No wheezes , rales, or rhonchi. GASTROINTESTINAL: Abdomen soft, nontender, mild distention less than previous examination, +BS. No hepatosplenomegaly or palpable masses. No guarding. No rebound tenderness. MUSCULOSKELETAL: Extremities without edema. No calf tenderness. NEUROLOGICAL: Awake and alert. Oriented x3. (Levon Goldberg MD R2) A/P Assessment and Plan 86 year old woman with multiple comorbidities including CAD, RA, chronic back pain, GERD, hypothyroidism, hx of OH in 2005, admitted for diarrhea and NSTEMI r /o. Plan as below. Discharge Planning Anticipate discharge to rehab center today 04/26 (Levon Goldberg MD R2) Attending Attestation Patient seen and examined. Case reviewed and discussed with the resident team. Agree with plan of care as discussed with me and documented in the resident note. (Nedra Zamora MD) Problem List: (1) Hematemesis ICD Codes: K92.0 - Hematemesis Status: Resolved Plan: 1-2 day history of multiple episodes of coffee-ground emesis. Gastroccult positive performed on 04/21 prior to gastroenterology consultation. * Hemoglobin remaining stable * EGD per gastroenterology 04/22, 3 AVMs s/p APC, return in 1 year for EGD * CT abd/pelvis ordered by GI, revealed bibasilar alveolar consolidations consistent with compressive atelectasis and/or pneumonia, small b/l pleural effusions, chronic dilatation of the intrahepatic and extrahepatic biliary system which is unchanged compared to 2010. Air-filled distended stomach, nonspecific. * Continue Protonix 40 mg PO daily * Zofran prn N/V (2) Acute GI bleeding ICD Codes: K92.2 - Gastrointestinal hemorrhage, unspecified Status: Resolved Plan: Plan as above (3) Hypertension ICD Codes: I10 - Essential (primary) hypertension Status: Chronic Plan: Blood pressures stable Consider essential hypertension with component of pain contributing Cardiology consulted, appreciated recommendations Continue Propranolol (Inderal LA) 120mg daily Will avoid ASA for now due to recent GI lesion but patient has been started on Plavix 75mg daily per cardiology recommendations Minitran patch (4) Chest discomfort ICD Codes: R07.89 - Other chest pain Status: Resolved Plan: Hx of previous OH in 2005. Admitted for NSTEMI r/o Cardiology consulted, recommendations appreciated Troponins trending 0.03, 0.13, 0.16, 0.14 EKG sinus tach, slight ST depression lead V4, nonspecific ST changes SL nitroglycerin 0.4mg q5m PRN for chest pain Hold heparin and baby aspirin due to hematemesis Continue Plavix Continue nitro patch q6h, hold for BP < 100/[address] Jefferson, patient with pharm-stress MPI in office on 03/19/2017 revealing lateral wall ischemia, patient was asymptomatic at that time (5) Chronic back pain ICD Codes: M54.9 - Dorsalgia, unspecified; G89.29 - Other chronic pain Status: Chronic Plan: Hx of kyphoplasty in the thoracic spine. Patient complains of severe back pain, stating this is unchanged from baseline. -Discontinued home oxycodone due to vomiting -Continue Dilaudid 2 mg po q6h prn pain 6-10 (6) Rheumatoid arthritis ICD Codes: M06.9 - Rheumatoid arthritis, unspecified Status: Chronic Plan: - Held methotrexate on admission given concern for sepsis - Patient states she takes this every Saturday - Continue folic acid daily once daily, hold on days receiving MTX (7) HLD (hyperlipidemia) ICD Codes: E78.5 - Hyperlipidemia, unspecified Status: Chronic Plan: - Restart pravastatin 80 mg PO hs on taking PO (8) Essential tremor ICD Codes: G25.0 - Essential tremor Status: Chronic Plan: - restarted Primidone 50mg PO qid (9) Hypothyroid ICD Codes: E03.9 - Hypothyroidism, unspecified Status: Chronic Plan: - Resume Levothyroxine (10) GERD (gastroesophageal reflux disease) ICD Codes: K21.9 - Gastro-esophageal reflux disease without esophagitis Status: Chronic Plan: Protonix 40mg po daily (11) Diarrhea ICD Codes: R19.7 - Diarrhea, unspecified Status: Resolved Plan: Hx of recent abx use for UTI. 1-2 day hx of watery, nonbloody diarrhea. * C.diff stool negative * Lipase WNL (12) Nutrition, metabolism, and development symptoms ICD Codes: R63.8 - Other symptoms and signs concerning food and fluid intake Plan: Nutrition: Heart healthy Electrolytes: WNL Fluids: PO DVT ppx: b/l SCDs, anticoagulation contraindicated due to GI bleeding (Levon Goldberg MD R2) Problem Qualifiers (1) Hematemesis: Qualified Codes: K92.0 - Hematemesis Levon Goldberg MD R2 Apr 26, 2017 08:53 Nedra Zamora MD Apr 26, 2017 09:36
[2017-04-26] MEDS: DOCUSATE SODIUM 50 MG/SENNA 8.6 MG TAB PO SCH (09:00)
[2017-04-26] MEDS: NITROGLYCERIN 0.2 MG/HR PATCH T-DERMAL SCH (10:35)
[2017-04-26] MEDS: PANTOPRAZOLE SOD 40 MG DELAYED RELEASE TAB PO SCH (10:35)
[2017-04-26] MEDS: CLOPIDOGREL 75 MG TAB PO SCH (10:36)
[2017-04-26] MEDS: PRIMIDONE 50 MG TAB PO SCH (10:36)
[2017-04-26] MEDS: SODIUM CHLORIDE 0.9% FLUSH 10 ML FLUSH IV FLUSH SCH (10:37)
[2017-04-26] MEDS: PROPRANOLOL HCL LA 120 MG CAP PO SCH (10:37)
[2017-04-26] MEDS: ONDANSETRON HCL 4 MG/2 ML VIAL IV PUSH PRN (12:17)
== END 2017-04-26 15:54 | DRG 378 ==
LOC: NEPC 06:43 → NEDA 08:31 → OBSVTOIN 11:06 → HCIS 11:47
PROVIDERS: ADMIT Family Medicine; ATTEND Family Medicine
PROC: 0W3P8ZZ Control Bleeding in Gastrointestinal Tract, Via Natural or Artificial Opening Endoscopic (ICD-10-PCS; principal; 2017-04-22 11:08)
DX: K31.811 Angiodysplasia of stomach and duodenum with bleeding (principal); I24.8 Other forms of acute ischemic heart disease; M06.9 Rheumatoid arthritis, unspecified; D62 Acute posthemorrhagic anemia; K92.0 Hematemesis; I25.2 Old myocardial infarction; I25.10 Atherosclerotic heart disease of native coronary artery without angina pectoris; E78.5 Hyperlipidemia, unspecified; E03.9 Hypothyroidism, unspecified; I10 Essential (primary) hypertension; G89.29 Other chronic pain; M54.5 Low back pain; R19.7 Diarrhea, unspecified; K20.9 Esophagitis, unspecified; G25.0 Essential tremor; K21.9 Gastro-esophageal reflux disease without esophagitis; M81.0 Age-related osteoporosis without current pathological fracture; Z79.899 Other long term (current) drug therapy; Z87.440 Personal history of urinary (tract) infections; Z96.653 Presence of artificial knee joint, bilateral; Z96.641 Presence of right artificial hip joint
CPT/HCPCS: 71010; 74177; 76937; 80048; 80053; 82272; 83690; 84484; 85014; 85018; 85025; 85027; 85610; 85730; 86850; 86900; 86901; 87493; 87506; 93005; 94150; C9113; J0360; J1170; J1644; J1650; J2060; J2270; J2405; J2550; J3480; J7030; Q9963; Q9967

== ENCOUNTER 2017-06-02 18:44 | Emergency (ER) | payer MEDICARE, BC ==
[~2017-06-02] VITALS: Ht 165.1 cm; Wt 63.0 kg
[~2017-06-02 18:44] MED LIST changes: +AMIT50TA3 PO; +CALC0.25 PO; +DILA2TAB4 PO; +FOLI1TAB6 PO; +FURO1TAB60 PO; +KLOR10TA PO; -LEVA750T9 PO; +LEVO.1 PO; +MAGN30S PO; +METH2.5T PO; +NITR0.2D T-DERMAL; +NITR1SUB3 SL; +PANT40TA3 PO; +PERI PO; +PLAV75TA29 PO; +PRIM50TA5 PO; +PROP120 PO; +PROP80CA PO; +SIMV40TA PO; -TYLETAB36 PO; +VITA1000 PO
[2017-06-02 19:18] VITALS: BP 189/84; PULSE 88; RESP 20; TEMP 97.8; O2SAT 95
[2017-06-02] MEDS ORDERED: SODIUM CHLORIDE 0.9% FLUSH 10 ML FLUSH IV FLUSH PRN (19:30)
--- NOTE | 2017-06-02 19:35 | PD ---
HPI Chief Complaint: Abdominal Pain Time Seen by Provider: 19:30 Travel History International Travel<30 days: No Contact w/Intl Traveler<30days: No Traveled to known affect area: No History of Present Illness HPI 86-year-old female presents to the emergency department by EMS transport from [facility] for evaluation of nausea with bilious emesis abdominal distention and pain and then just prior to arrival to the emergency department brief chest pain that resolved after emesis and after receiving Zofran 4 mg IV. Denies chest pain at this time and abdominal distension has lessened after emesis as well. Patient was recently hospitalized he summer 2016 with upper GI bleed. Patient is the rehabilitation facility due to multiple cauterizations after endoscopy. Patient also was identified by her medical anthropology director Dr. Coreas in April to possibly had a small myocardial infarction. Patient is currently wearing a nitro drip patch. Patient states that she has no chest pain at this time and she has no abdominal pain this time and her nausea has resolved. Prior history of cholecystectomy and denies other abdominal surgeries. [facility] Past Medical History Narrative Medical Nursing notes reviewed Arthritis: Yes (RHEUMATOID ARTHRITIS) Asthma: No Autoimmune Disease: No Blood Disorders: No Anxiety: Yes Depression: Yes Heart Rhythm Problems: No Cancer: No Cardiovascular Problems: Yes (MD 10/2005) High Cholesterol: Yes Chest Pain: No Congestive Heart Failure: No COPD: No Cerebrovascular Accident: No Diminished Hearing: No Endocrine: Yes (HYPOTHROID) Gastrointestinal Disorders: Yes GERD: Yes Genitourinary: Yes (BLADDER INFECTION) Headaches: No Hiatal Hernia: Yes Hypertension: Yes Immune Disorder: Yes (RA) Implanted Vascular Access Dvce: Yes Kidney Stones: No Musculoskeletal: Yes (MULTPLE ORTHOPEDIC SURGERIES) Neurologic: No Psychiatric: Yes Reproductive: No Respiratory: No Immunizations Current: Yes (received the shingles vaccine) Migraines: Yes ( CHILD) Myocardial Infarction: Yes (2005) Renal Failure: No Seizures: No Sickle Cell Disease: No Sleep Apnea: No Thyroid Disease: Yes (HYPOTHYROID) Ulcer: Yes Menopausal: Yes Past Surgical History Abdominal Surgery: Yes AICD: No Arteriovenous Shunt: No Cardiac Surgery: No Cholecystectomy: Yes Ear Surgery: No Endocrine Surgery: No Eye Surgery: Yes (BILATERAL CATARACT REMOVAL L EYE 2008 R EYE 1997) Genitourinary Surgery: Yes (GALLBLADDER REMOVED--OPEN 1975) Gynecologic Surgery: No Insulin Pump: No Joint Replacement: Yes (BILATERAL KNEE REPLACEMENTS. RIGH HIP REPLACEMENT) Neurologic Surgery: Yes (BACK SURGERY 1973) Oral Surgery: No Pacemaker: No Thoracic Surgery: No Other Surgery: Yes Social History Alcohol Use: No Tobacco Use: No Substance Use: No Allergies-Medications (Allergen,Severity, Reaction): Coded Allergies: diclofenac (Verified Allergy, Severe, HIVES, 06/02/17) penicillin G (Verified Allergy, Severe, Swelling, 06/02/17) piroxicam (Verified Allergy, Severe, Hives, 06/02/17) Uncoded Allergies: CLINORIL (Allergy, Severe, RASH, 05/18/08) NSAIDS (Allergy, Mild, 01/19/12) Reported Meds & Prescriptions Reported Meds & Active Scripts Active Zofran Odt (Ondansetron Odt) 4 Mg Tab 4 Mg SL Q6HR PRN Levaquin (Levofloxacin) 500 Mg Tablet 500 Mg PO DAILY 10 Days Pantoprazole (Pantoprazole Sodium) 40 Mg Tab 40 Mg PO DAILY Plavix (Clopidogrel Bisulfate) 75 Mg Tab 75 Mg PO DAILY Inderal LA 24 HR (Propranolol HCl) 120 Mg Cap 120 Mg PO DAILY Reported Percocet (Oxycodone-Acetaminophen) 5-325 mg Tab 2 Tab PO Q6H PRN Percocet (Oxycodone-Acetaminophen) 5-325 mg Tab 1 Tab PO Q6H PRN Ondansetron (Ondansetron HCl) 4 Mg Tab 1 Tab PO Q6HR PRN Melatonin 3 Mg Tab 1 Tab PO DAILY Preservision Areds (Multiple Vitamins W/ Minerals) 1 Tab 1 Tab PO BID Miralax Powder (Polyethylene Glycol 3350 Powder) 17 Gm Powd 17 Gm PO BID Mix and dissolve one measuring cap-ful (17 grams) in water or juice. Gabapentin 100 Mg Cap 100 Mg PO BID Trazodone (Trazodone HCl) 50 Mg Tab 25 Mg PO HS Atorvastatin (Atorvastatin Calcium) 20 Mg Tab 20 Mg PO HS Isosorbide Mononitrate ER (Isosorbide Mononitrate) 30 Mg Morgan 30 Mg PO DAILY Primidone 50 Mg Tab 50 Mg PO QID Calcitriol 0.25 Mcg Cap 0.25 Mcg PO M THRU F Vitamin D-1000 (Cholecalciferol) 1,000 Unit Tab 50,000 Units PO WEEKLY Propranolol ER 24 HR (Propranolol HCl) 80 Mg Cap 80 Mg PO DAILY Amitriptyline (Amitriptyline HCl) 50 Mg Tab 50 Mg PO HS Klor-Con 10 (Potassium Chloride) 10 Meq Tab 10 Meq PO -- Lasix (Furosemide) 40 Mg Tab 40 Mg PO MWF Synthroid (Levothyroxine Sodium) 100 Mcg Tab 100 Mcg PO DAILY Folic Acid 1 Mg Tablet 1 Mg PO DAILY Methotrexate 2.5 Mg Tab 3 Tab PO Q7D Nitro-Dur Patch 24 HR (Nitroglycerin) 0.2 Mg/Hr Patch 0.2 Mg T-DERMAL DAILY Review of Systems Except as stated in HPI: all other systems reviewed are Neg Physical Exam Narrative GENERAL: Well-developed, nourished pleasant female in no acute distress no respiratory distress; GCS 15 SKIN: Warm and dry. HEAD: Normocephalic. EYES: No scleral icterus. No injection or drainage. NECK: Supple, trachea midline. No JVD or lymphadenopathy. CARDIOVASCULAR: Regular rate and rhythm without murmurs, gallops, or rubs. RESPIRATORY: Breath sounds equal bilaterally. No accessory muscle use. GASTROINTESTINAL: Abdomen soft, non-tender, nondistended. No guarding or rebound. MUSCULOSKELETAL: No cyanosis, or edema. BACK: Nontender without obvious deformity. No CVA tenderness. Data Data Last Documented VS Vital Signs Date Time Temp Pulse Resp B/P (MAP) Pulse Ox O2 Delivery O2 Flow Rate FiO2 06/02/17 19:18 97.8 88 20 189/84 (119) 95 Orders Orders Complete Blood Count With Diff (06/02/17 19:30) Comprehensive Metabolic Panel (06/02/17 19:30) Lipase (06/02/17 19:30) Lactic Acid (06/02/17 19:30) Prothrombin Time / Inr (Pt) (06/02/17 19:30) Act Partial Throm Time (Ptt) (06/02/17 19:30) Urinalysis - C+S If Indicated (06/02/17 19:30) Ct Abd/Pel W Iv Contrast(Rout) (06/02/17 19:30) Iv Access Insert/Monitor (06/02/17 19:30) Ecg Monitoring (06/02/17 19:30) Oximetry (06/02/17 19:30) Sodium Chloride 0.9% Flush (Ns Flush) (06/02/17 19:30) Electrocardiogram (06/02/17 19:30) Chest, Single Ap (06/02/17 19:30) Troponin I (06/02/17 19:30) Ckmb (Isoenzyme) Profile (06/02/17 19:30) Urine Culture (06/02/17 19:40) Iohexol 350 Inj (Omnipaque 350 Inj) (06/02/17 20:28) Morphine Inj (Morphine Inj) (06/02/17 21:15) Sodium Chlor 0.9% 250 Ml Inj (Ns 250 Ml (06/02/17 22:15) Levofloxacin (Levaquin) (06/02/17 22:15) Labs Laboratory Tests Test 06/02/17 19:40 White Blood Count 7.6 TH/MM3 Red Blood Count 3.79 MIL/MM3 Hemoglobin 13.2 GM/DL Hematocrit 38.0 % Mean Corpuscular Volume 100.1 FL Mean Corpuscular Hemoglobin 34.9 PG Mean Corpuscular Hemoglobin Concent 34.9 % Red Cell Distribution Width 15.5 % Platelet Count 223 TH/MM3 Mean Platelet Volume 8.0 FL Neutrophils (%) (Auto) 79.2 % Lymphocytes (%) (Auto) 14.4 % Monocytes (%) (Auto) 5.5 % Eosinophils (%) (Auto) 0.5 % Basophils (%) (Auto) 0.4 % Neutrophils # (Auto) 6.1 TH/MM3 Lymphocytes # (Auto) 1.1 TH/MM3 Monocytes # (Auto) 0.4 TH/MM3 Eosinophils # (Auto) 0.0 TH/MM3 Basophils # (Auto) 0.0 TH/MM3 CBC Comment DIFF FINAL Differential Comment Prothrombin Time 10.6 SEC Prothromb Time International Ratio 1.0 RATIO Activated Partial Thromboplast Time 22.5 SEC Urine Color YELLOW Urine Turbidity HAZY Urine pH 7.5 Urine Specific [place] 1.015 Urine Protein 30 mg/dL Urine Glucose (UA) NEG mg/dL Urine Ketones NEG mg/dL Urine Occult Blood SMALL Urine Nitrite NEG Urine Bilirubin NEG Urine Urobilinogen LESS THAN 2.0 MG/DL Urine Leukocyte Esterase LARGE Urine RBC 25 /hpf Urine WBC /hpf Urine Amorphous Sediment RARE Microscopic Urinalysis Comment CULTURE INDICATED Blood Urea Nitrogen 20 MG/DL Creatinine 1.02 MG/DL Random Glucose 141 MG/DL Total Protein 8.0 GM/DL Albumin 3.1 GM/DL Calcium Level 8.8 MG/DL Alkaline Phosphatase 117 U/L Aspartate Amino Transf (AST/SGOT) 38 U/L Alanine Aminotransferase (ALT/SGPT) 34 U/L Total Bilirubin 0.4 MG/DL Sodium Level 135 MEQ/L Potassium Level 4.0 MEQ/L Chloride Level 101 MEQ/L Carbon Dioxide Level 25.7 MEQ/L Anion Gap 8 MEQ/L Estimat Glomerular Filtration Rate 52 ML/MIN Lactic Acid Level 1.8 mmol/L Total Creatine Kinase 20 U/L Troponin I 0.02 NG/ML Lipase 235 U/L [facility] Medical Decision Making Medical Screen Exam Complete: Yes Emergency Medical Condition: Yes Medical Record Reviewed: Yes Interpretation(s) EKG: Normal sinus rhythm rate 88 LVH QS inferiorly age-indeterminate; no acute ST elevation CK 20, not elevated; troponin I less than 0.02, not elevated Urinalysis positive white blood cells red blood cells bacteria leukocyte Estrace culture indicated Vital Signs Date Time Temp Pulse Resp B/P (MAP) Pulse Ox O2 Delivery O2 Flow Rate FiO2 06/02/17 19:18 97.8 88 20 189/84 (119) 95 Last Impressions Chest X-Ray 06/02/171929 Signed Impressions: Service Date/Time: Friday, June 02, 2017 19:46 - CONCLUSION: No evidence of acute cardiopulmonary disease. Left base consolidation has essentially resolved in the interim. Harsha Griffin MD Abdomen/Pelvis CT 06/02/171929 Signed Impressions: Service Date/Time: Friday, June 02, 2017 20:14 - CONCLUSION: 1. Moderate large stool throughout the colon. Nonobstructive pattern. No acute inflammatory changes are demonstrated. 2. Trace atelectasis and very small effusions of the visualized lung bases. Harsha Griffin MD CBC & BMP Diagram 06/02/17 19:40 Total Protein 8.0, Albumin 3.1 L, Calcium Level 8.8, Alkaline Phosphatase 117, Aspartate Amino Transf (AST/SGOT) 38 H, Alanine Aminotransferase (ALT/SGPT) 34, Total Bilirubin 0.4 Differential Diagnosis Abdominal pain, gastritis, peptic ulcer disease, choledocholithiasis, pancreatitis, bowel obstruction, ileus, ACS, MD, esophageal spasm Narrative Course Patient placed on monitoring specialist with continuous pulse oximetry IV access obtained specimens collected and sent for resulting EKG performed which reveals no acute ST elevation or injury pattern. Diagnosis Primary Impression: UTI (urinary tract infection) Qualified Codes: N39.0 - Urinary tract infection, site not specified Additional Impressions: Nausea & vomiting Renal insufficiency Referrals: Primary Care Physician call for appointment Patient Instructions: General Instructions, Narcotic given in the ED Additional Instructions: Encourage/increase fluid hydration Complete course of antibiotic as prescribed; follow-up culture results in 48 hours May take as needed Zofran for nausea and/or vomiting do not take if not experiencing nausea or vomiting Take acetaminophen/Tylenol as needed for fever 100.4F or greater Continue chronic medications as chronically prescribed Follow-up with your primary care provider/managing physician Return to the emergency department for any concerns or change in condition Scripts Ondansetron Odt (Zofran Odt) 4 Mg Tab 4 MG SL Q6HR Y for Nausea/Vomiting, #10 TAB 0 Refills Prov: Otilia Carlson MD 06/02/17 Levofloxacin (Levaquin) 500 Mg Tablet 500 MG PO DAILY for Infection for 10 Days, #10 TAB 0 Refills Prov: Otilia Carlson MD 06/02/17 Disposition: 03 DISCHARGE TO SNF Condition: Stable Otilia Carlson MD Jun 02, 2017 19:35
[2017-06-02 19:56] LABS: AUTOMATED NEUTROPHIL # 6.1 TH/MM3 (1.8-7.7); BASOPHIL % 0.4 % (0.0-2.0); EOSINOPHIL % 0.5 % (0.0-4.0); HEMOGLOBIN 13.2 GM/DL (11.6-15.3); LYMPH % 14.4 % (9.0-44.0); LYMPHOCYTE # 1.1 TH/MM3 (1.0-4.8); MEAN CELL VOLUME 100.1 FL (80.0-100.0); MEAN CORPUSCULAR HEMOGLOBIN 34.9 PG (27.0-34.0); MEAN CORPUSCULAR HGB CONC 34.9 % (32.0-36.0); MONO % 5.5 % (0.0-8.0); MONOCYTE # 0.4 TH/MM3 (0-0.9); NEUT % 79.2 % (16.0-70.0); PLATELET COUNT 223 TH/MM3 (150-450); RED BLOOD COUNT 3.79 MIL/MM3 (4.00-5.30); RED CELL DISTRIBUTION WIDTH 15.5 % (11.6-17.2); WHITE BLOOD COUNT 7.6 TH/MM3 (4.0-11.0)
[2017-06-02 20:00] VITALS: BP 184/93; PULSE 84; RESP 16; O2SAT 97
--- NOTE | 2017-06-02 20:03 | RADRPT ---
EXAM DATE/TIME: 06/02/2017 19:46 [facility] COMPARISON: No previous studies available for comparison. INDICATIONS : Shortness of breath. MEDICAL HISTORY : Cardiovascular disease. Hypertension. Rheumatoid arthritis. Diabetes. SURGICAL HISTORY : Cholecystectomy. Kyphoplasty. ENCOUNTER: Initial ACUITY: 1 day PAIN SCORE: 0/10 LOCATION: Bilateral chest FINDINGS: A single view of the chest demonstrates the lungs to be symmetrically aerated without evidence of mas s, infiltrate or effusion. The cardiomediastinal contours are unremarkable. Osseous structures are intact. CONCLUSION: No evidence of acute cardiopulmonary disease. Left base consolidation has essentially resolved in the interim. Harsha Griffin MD on June 02, 2017 at 20:01 Board Certified Radiologist. This report was verified electronically.
[2017-06-02 20:04] LABS: AMORPHOUS SEDIMENT, URINE RARE; BILIRUBIN, URINE NEG (NEG); BLOOD, URINE SMALL (NEG); GLUCOSE,URINE NEG (NEG); KETONE, URINE NEG (NEG); NITRITE,URINE NEG (NEG); PH, URINE 7.5 (5.0-8.5); URINE COLOR YELLOW (YELLW/STRAW); URINE LEUKOCYTE ESTERASE LARGE (NEG)
[2017-06-02 20:06] LABS: PROTHROMBIN TIME - PATIENT 10.6 SEC (9.8-11.6)
[2017-06-02 20:09] LABS: ALBUMIN 3.1 GM/DL (3.4-5.0); AST (GOT) 38 U/L (15-37); BICARBONATE 25.7 MEQ/L (21.0-32.0); BLOOD UREA NITROGEN 20 MG/DL (7-18); CALCIUM 8.8 MG/DL (8.5-10.1); CHLORIDE 101 MEQ/L (98-107); CREATININE 1.02 MG/DL (0.50-1.00); GLOMERULAR FILTRATION RATE 52 ML/MIN (>89); GLUCOSE,RANDOM 141 MG/DL (74-106); LIPASE 235 U/L (73-393); SODIUM (NA) 135 MEQ/L (136-145)
[2017-06-02] MEDS ORDERED: ATOR20TA15 PO (20:09)
[2017-06-02] MEDS ORDERED: GABA100C4 PO (20:09)
[2017-06-02] MEDS ORDERED: MELA3TAB PO (20:09)
[2017-06-02] MEDS ORDERED: TRAZ50TA12 PO (20:09)
[2017-06-02] MEDS ORDERED: ISOS30TA3 PO (20:09)
[2017-06-02] MEDS ORDERED: PERC5TAB12 PO (20:09)
[2017-06-02] MEDS ORDERED: OCUVTAB4 PO (20:09)
[2017-06-02] MEDS ORDERED: ONDA4TAB15 PO (20:09)
[2017-06-02] MEDS ORDERED: MIRA3350 PO (20:09)
[2017-06-02 20:10] LABS: ALT (GPT) 34 U/L (10-53)
[2017-06-02 20:14] LABS: ALKALINE PHOSPHATASE 117 U/L (45-117); TOTAL BILIRUBIN ADULT 0.4 MG/DL (0.2-1.0); TROPONIN I 0.02 NG/ML (0.02-0.05)
[2017-06-02] MEDS ORDERED: IOHEXOL 350 MG/ML 10 ML VIAL (for RAD DIAG) IVCONTRAST ONE (20:28)
--- NOTE | 2017-06-02 20:47 | RADRPT ---
EXAM DATE/TIME: 06/02/2017 20:14 [facility] COMPARISON: CT ABDOMEN & PELVIS W CONTRAST, April 22, 2017, 21:24. INDICATIONS : Abdominal distention for three days. IV CONTRAST: 85 cc Omnipaque 350 (iohexol) IV ORAL CONTRAST: No oral contrast ingested. RADIATION DOSE: 6.71 CTDIvol (mGy) MEDICAL HISTORY : Hypertension. diabetes SURGICAL HISTORY : Cholecystectomy. ENCOUNTER: Initial ACUITY: 1 day PAIN SCALE: 0/10 LOCATION: Bilateral abdomen TECHNIQUE: Volumetric scanning of the abdomen and pelvis was performed. Using automated exposure control and ad justment of the mA and/or kV according to patient size, radiation dose was kept as low as reasonably achievable to obtain optimal diagnostic quality images. DICOM format image data is available electro nically for review and comparison. FINDINGS: LOWER LUNGS: Mild bibasilar atelectasis and very small effusions. LIVER: Homogeneous density without lesion. There is no dilation of the biliary tree. No calcified gallston es. SPLEEN: Normal size without lesion. PANCREAS: Within normal limits. KIDNEYS: Normal in size and shape. There is no mass, stone or hydronephrosis. ADRENAL GLANDS: Within normal limits. VASCULAR: There is no aortic aneurysm. BOWEL/MESENTERY: Large stool in the rectum and moderate stool in the rest of the colon. No small bowel or gastric dist ention. No inflammatory changes are demonstrated. Appendix is normal. ABDOMINAL WALL: Within normal limits. RETROPERITONEUM: There is no lymphadenopathy. BLADDER: No wall thickening or mass. REPRODUCTIVE: Within normal limits. INGUINAL: There is no lymphadenopathy or hernia. MUSCULOSKELETAL: Multilevel thoracolumbar spine degenerative changes. There are chronic compression deformities of T12 , L1 and L2 again seen. Previous right hip arthroplasty. No acute bony abnormality demonstrated. CONCLUSION: 1. Moderate large stool throughout the colon. Nonobstructive pattern. No acute inflammatory changes a re demonstrated. 2. Trace atelectasis and very small effusions of the visualized lung bases. Harsha Griffin MD on June 02, 2017 at 20:41 Board Certified Radiologist. This report was verified electronically.
[2017-06-02 21:00] VITALS: BP 176/86; PULSE 86; RESP 16; O2SAT 96
[2017-06-02] MEDS ORDERED: MORPHINE SULFATE 4 MG/ML INJ IV PUSH ONE (21:15)
[2017-06-02 22:00] VITALS: BP 176/82; PULSE 84; RESP 16; O2SAT 97
[2017-06-02] MEDS ORDERED: SODIUM CHLOR 0.9% 250 ML INJ 250 ML IV ONE (22:15)
[2017-06-02] MEDS ORDERED: LEVOFLOXACIN 500 MG TAB PO ONE (22:15)
[2017-06-02] MEDS ORDERED: LEVA500T33 PO (22:52)
[2017-06-02] MEDS ORDERED: ZOFR4TAB3 SL (22:52)
[2017-06-02 23:18] VITALS: BP 188/88; PULSE 90; RESP 16; O2SAT 96
[2017-06-03] MEDS ORDERED: ONDANSETRON ODT 4 MG TAB PO ONE
--- NOTE | 2017-06-03 16:04 | EKG ---
Date Performed: 06/02/2017 Time Performed: 19:23:49 PTAGE: 86 years EKG: Sinus rhythm MINIMAL VOLTAGE CRITERIA FOR LVH, CONSIDER NORMAL VARIANT ABNORMAL ECG NO PREVIOUS TRACING DOCTOR: Ari Villalba Interpretating Date/Time 06/03/2017 16:03:22
== END 2017-06-03 00:18 ==
LOC: NEPC 18:44
DX: N39.0 Urinary tract infection, site not specified (principal); R11.2 Nausea with vomiting, unspecified; N28.9 Disorder of kidney and ureter, unspecified; B95.2 Enterococcus as the cause of diseases classified elsewhere; K59.00 Constipation, unspecified; J90 Pleural effusion, not elsewhere classified; R94.31 Abnormal electrocardiogram [ECG] [EKG]; M06.9 Rheumatoid arthritis, unspecified; I10 Essential (primary) hypertension
CPT/HCPCS: 71045; 74177; 80053; 81001; 82550; 83605; 83690; 84484; 85025; 85610; 85730; 87077; 87086; 87186; 93005; 96361; 96374; 99285; J2270; J7050; Q9967

== ENCOUNTER 2017-10-10 10:34 | Emergency (ER) | payer MEDICARE, BC ==
[~2017-10-10] VITALS: Ht 165.1 cm; Wt 65.0 kg
[~2017-10-10 10:34] MED LIST changes: +ATOR20TA15 PO; -DILA2TAB4 PO; +GABA100C4 PO; +ISOS30TA3 PO; +LEVA500T33 PO; -MAGN30S PO; +MELA3TAB PO; +MIRA3350 PO; -NITR1SUB3 SL; +OCUVTAB4 PO; +ONDA4TAB15 PO; +PERC5TAB12 PO; -PERI PO; -SIMV40TA PO; +TRAZ50TA12 PO; +ZOFR4TAB3 SL
[2017-10-10 10:52] VITALS: BP 162/77; PULSE 90; RESP 20; TEMP 97.3; O2SAT 95
--- NOTE | 2017-10-10 11:48 | RADRPT ---
EXAM DATE: 10/10/2017 11:34 AM EDT AGE/SEX: 87 years / Female INDICATIONS: Right hip pain. Patient fell last night. CLINICAL DATA: This is the patient's initial encounter. Patient reports that signs and symptoms have been present for 1 day and indicates a pain score of 6/10. MEDICAL/SURGICAL HISTORY: Rheumatoid arthritis. Hypercholesterolemia. Hypothyroidism. Hypert ension. GERD. Myocardial infarction. Renal disease. Cholecystectomy. Right hip replacement. Right r otator cuff repair. Bilateral knee replacements. COMPARISON: No prior [facility] exams available for comparison. FINDINGS: Postoperative right total hip replacement. Normal alignment. Calcifications noted in the soft tissues . Bones are mildly osteopenic. CONCLUSION: Postoperative right total hip replacement. No acute fracture or dislocation. Electronically signed by: Wili Otero MD 10/10/2017 11:46 AM EDT
[2017-10-10] MEDS ORDERED: OMEP20CA2 PO (13:17)
[2017-10-10] MEDS ORDERED: SIMV40TA PO (13:17)
[2017-10-10] MEDS ORDERED: ACYC400T PO (13:17)
--- NOTE | 2017-10-10 13:32 | PD ---
HPI Chief Complaint: Hip Injury Time Seen by Provider: 11:51 Travel History International Travel<30 days: No Contact w/Intl Traveler<30days: No Traveled to known affect area: No History of Present Illness HPI 87-year-old female with PMH of RA, hypothyroid,chronic low back pain, ambulatory at home with a walker presents to the ED for evaluation of right- sided hip pain and weakness. Patient states that after working at the computer for several hours last night, she got up to go to bed and felt an "inexplicable " pain in the right hip. She has been able to ambulate. However when she was attempting to do chores this morning she began to feel extreme weakness in the right leg. She states that she felt as if the leg would not support her weight. She laid over the edge of the bathroom vanity for several minutes before she was able to lower herself to the ground. She complains of pain over the right breast which she feels is related to this. She then called a neighbor who came to the house and called 911. She denies hitting her head or loss of consciousness in the event. On presentation she complains of 7/10 right hip pain. No alleviating or exacerbating factors reported. She denies any other somatic complaints. PFSH Past Medical History Arthritis: Yes (RHEUMATOID ARTHRITIS) Asthma: No Autoimmune Disease: No Blood Disorders: No Anxiety: Yes Depression: Yes Heart Rhythm Problems: No Cancer: No Cardiovascular Problems: Yes (NH 10/2005) High Cholesterol: Yes Chest Pain: No Congestive Heart Failure: No COPD: No Cerebrovascular Accident: No Diminished Hearing: No Endocrine: Yes (HYPOTHROID) Gastrointestinal Disorders: Yes (ESOPHAGEAL STRETCHING X4) GERD: Yes Genitourinary: Yes (BLADDER INFECTION) Headaches: No Hiatal Hernia: Yes Hypertension: Yes Immune Disorder: Yes (RA) Implanted Vascular Access Dvce: Yes Kidney Stones: No Musculoskeletal: Yes (MULTPLE ORTHOPEDIC SURGERIES) Neurologic: No Psychiatric: Yes Reproductive: No Respiratory: No Immunizations Current: Yes (received the shingles vaccine) Migraines: Yes ( CHILD) Myocardial Infarction: Yes (2005) Renal Failure: No Seizures: No Sickle Cell Disease: No Sleep Apnea: No Thyroid Disease: Yes (HYPOTHYROID) Ulcer: Yes Tetanus Vaccination: > 5 Years Influenza Vaccination: No Menopausal: Yes : 0 Past Surgical History Abdominal Surgery: Yes AICD: No Arteriovenous Shunt: No Cardiac Surgery: No Cholecystectomy: Yes (1975) Ear Surgery: No Endocrine Surgery: No Eye Surgery: Yes (BILATERAL CATARACT REMOVAL L EYE 2008 R EYE 1997) Genitourinary Surgery: Yes Gynecologic Surgery: No Insulin Pump: No Joint Replacement: Yes (BILATERAL KNEE REPLACEMENTS. RIGH HIP REPLACEMENT) Neurologic Surgery: Yes (BACK SURGERY 1973) Oral Surgery: No Pacemaker: No Thoracic Surgery: No Other Surgery: Yes Social History Alcohol Use: Yes (SOCIAL) Tobacco Use: No Substance Use: No Allergies-Medications (Allergen,Severity, Reaction): Coded Allergies: diclofenac (Verified Allergy, Severe, HIVES, 10/10/17) penicillin G (Verified Allergy, Severe, Swelling, 10/10/17) piroxicam (Verified Allergy, Severe, Hives, 10/10/17) Uncoded Allergies: CLINORIL (Allergy, Severe, RASH, 05/18/08) NSAIDS (Allergy, Mild, 01/19/12) Reported Meds & Prescriptions Reported Meds & Active Scripts Active Plavix (Clopidogrel Bisulfate) 75 Mg Tab 75 Mg PO DAILY Inderal LA 24 HR (Propranolol HCl) 120 Mg Cap 120 Mg PO DAILY Reported Acyclovir 400 Mg Tab 400 Mg PO BID Omeprazole 20 Mg Cap 1 Tab PO DAILY Simvastatin 40 Mg Tab 40 Mg PO HS Percocet (Oxycodone-Acetaminophen) 5-325 mg Tab 2 Tab PO Q6H PRN Percocet (Oxycodone-Acetaminophen) 5-325 mg Tab 1 Tab PO Q6H PRN Primidone 50 Mg Tab 50 Mg PO QID Calcitriol 0.25 Mcg Cap 0.25 Mcg PO M THRU F Vitamin D-1000 (Cholecalciferol) 1,000 Unit Tab 50,000 Units PO WEEKLY Amitriptyline (Amitriptyline HCl) 50 Mg Tab 50 Mg PO HS Lasix (Furosemide) 40 Mg Tab 40 Mg PO MWF Synthroid (Levothyroxine Sodium) 100 Mcg Tab 100 Mcg PO DAILY Folic Acid 1 Mg Tablet 1 Mg PO DAILY Methotrexate 2.5 Mg Tab 3 Tab PO Q7D Nitro-Dur Patch 24 HR (Nitroglycerin) 0.2 Mg/Hr Patch 0.2 Mg T-DERMAL DAILY Review of Systems Except as stated in HPI: all other systems reviewed are Neg Physical Exam Exam Limitations: Other: (Patient seen in the ambulance all, exam limited secondary to privacy concerns) Narrative GENERAL: Well-nourished, well-developed elderly white female no acute distress. SKIN: Focused skin assessment warm/dry. Scattered senile purpura of the extremities. HEAD: Normocephalic. EYES: No scleral icterus. No injection or drainage. NECK: Supple, trachea midline. No JVD or lymphadenopathy. CARDIOVASCULAR: Regular rate and rhythm without murmurs, gallops, or rubs. CHEST: Point tenderness over the 12 o'clock position of the right breast. Otherwise nontender throughout without deformity or crepitus. No retractions or use of accessory muscles. RESPIRATORY: Breath sounds equal bilaterally. No accessory muscle use. GASTROINTESTINAL: Abdomen soft, non-tender, nondistended. MUSCULOSKELETAL: No cyanosis, or edema. FOCUSED RIGHT LOWER EXTREMITY EXAM: 1+ DP pulse. The length of the legs is symmetric. No external rotation. Patient is able to flex the knee beyond 90 and extend the knee to 0. No pain elicited with internal/external rotation. 5 /5 strength in dorsiflexion, plantarflexion, knee and hip flexion. Neurovascularly intact distally. BACK: Nontender without obvious deformity. No CVA tenderness. Data Data Last Documented VS Vital Signs Date Time Temp Pulse Resp B/P (MAP) Pulse Ox O2 Delivery O2 Flow Rate FiO2 10/10/17 14:51 20 124/75 (91) 95 10/10/17 11:06 Room Air 10/10/17 10:52 97.3 90 Orders Orders Ice/Cold Pack (10/10/17 10:55) Hip, Uni(Ap&Lat) Wo Ap Pelvis (10/10/17 10:55) Diet Npo (10/10/17 Lunch) Chest, Pa & Lat (10/10/17 ) Ed Discharge Order (10/10/17 14:50) MDM Medical Decision Making Medical Screen Exam Complete: Yes Emergency Medical Condition: Yes Differential Diagnosis Hip pain versus musculoskeletal pain versus sciatica versus radiculopathy versus other Narrative Course 87-year-old female with PMH of RA, hypothyroid,chronic low back pain, ambulatory at home with a walker presents to the ED for evaluation of right- sided hip pain and weakness. Vitals reviewed. On exam this is a pleasant elderly white female in no acute distress. She has point tenderness along the scar of her hip replacement but I am unable to elicit any pain with internal/ external rotation, flexion of the hip and knee. She has 5/5 strength in bilateral lower extremities. X-ray reveals intact hip arthroplasty. There is an acetabular screw that appears to be protruded through the hip and into the pelvis. Dr. Romero, radiology, reviewed the patient's previous pelvic CT and was able to establish that this is stable. He does however note that this screw is millimeters from the neurovascular bundle. I discussed this with Dr. Monaco's PA. He feels that the patient can be followed on outpatient basis by Dr. aviles, who originally performed the surgery. The patient was walk tested through the emergency room and able to ambulate with a fairly stable gait and no complaint of pain. She is instructed to return to normal, gentle activity as tolerated, follow-up with the orthopedist as discussed, return for worsening symptoms. She indicated understanding of the instructions and is agreeable to care plan. The patient is stable and discharged home. Diagnosis Primary Impression: Chronic right hip pain Additional Impressions: Chest pain, musculoskeletal Radiculopathy of lumbar region Referrals: Orthopedist Additional Instructions: Rest, Disposition: 01 DISCHARGE HOME Condition: Stable Kamala Clay October 10, 2017 13:32
--- NOTE | 2017-10-10 14:36 | RADRPT ---
EXAM DATE: 10/10/2017 2:19 PM EDT AGE/SEX: 87 years / Female INDICATIONS: Midchest pain and shortness of breath post fall this morning. CLINICAL DATA: This is the patient's initial encounter. Patient reports that signs and symptoms have been present for 1 day and indicates a pain score of 10/10. MEDICAL/SURGICAL HISTORY: . Myocardial infarction. . Laminectomy. COMPARISON: No prior [facility] exams available for comparison. FINDINGS: PA and lateral views of the chest demonstrate the lungs to be symmetrically aerated without evidence of mass, infiltrate or effusion. Minimal linear basilar atelectasis or scarring. The cardiomediastina l contours are unremarkable. Severe compression deformity at T12 with previous kyphoplasty. Also prev ious kyphoplasty at T8. CONCLUSION: Minimal basilar atelectasis. No effusion. Tortuous aorta. Previous kyphoplasty in the thoracic spine as above. Electronically signed by: Wili Otero MD 10/10/2017 2:35 PM EDT
[2017-10-10 14:51] VITALS: BP 124/75
== END 2017-10-10 15:08 | disposition home or self-care (01) ==
LOC: NEDAMB 10:34
DX: M25.551 Pain in right hip (principal); G89.29 Other chronic pain; R07.89 Other chest pain; M54.16 Radiculopathy, lumbar region; M06.9 Rheumatoid arthritis, unspecified; E03.9 Hypothyroidism, unspecified; K21.9 Gastro-esophageal reflux disease without esophagitis; I10 Essential (primary) hypertension; E78.00 Pure hypercholesterolemia, unspecified
CPT/HCPCS: 71046; 73502; 99283